=== PATIENT | male | born 1955 | race Caucasian/White ===

== ENCOUNTER 2022-09-02 19:10 | Inpatient (IN) | payer MEDICARE, SELFPAY ==
--- NOTE | ~2022-09-02 | XR_ITS ---
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 RESULT: Lines, tubes, and devices: None. Lungs and pleura: Severe emphysematous change, with mild diffuse reticulonodular opacities. No pneum othorax, focal consolidation, or pleural effusion. Cardiomediastinal silhouette: Dilated central pulmonary arteries as can be seen with pulmonary arter ial hypertension. Moderate aortic arch calcification. Other: No acute osseous or upper abdominal finding. IMPRESSION: No acute cardiopulmonary process. Reviewed, dictated and finalized at location K. ER CONTROL OPERATOR
--- NOTE | ~2022-09-02 | XR_ITS ---
Portable chest x-ray Comparison: 09/02/2022 Clinical History: Shortness of breath Findings: There is probable COPD and chronic interstitial disease. No definite consolidation or pleu ral effusion. Cardiomediastinal silhouette is stable. Bones and soft tissues are unremarkable. Impression: COPD and probable chronic interstitial disease. No definite acute abnormality. Reviewed, dictated and finalized at [facility]. DESIGN ENGINEER Impression: COPD and probable chronic interstitial disease. No definite acute abnormality.
--- NOTE | 2022-09-02 19:18 | ECG_ITS ---
Measurements Intervals [place] Rate: 111 P: 89 OR: 114 QRS: 106 QRSD: 78 T: 107 QT: 312 QTc: 425 Interpretive Statements SINUS TACHYCARDIA POSSIBLE RIGHT ATRIAL ENLARGEMENT BASELINE ARTIFACT- I, II, III, AVR, AVL, AVF, V1-V6 ABNORMAL ECG NO PREVIOUS ECG AVAILABLE FOR COMPARISON Electronically Signed On 09-03-2022 7:13:56 ASSESSMENT CLINICIAN by Cr Robins D.O.
--- NOTE | 2022-09-02 19:19 | PC.NURSE ---
Patient arrived with breathing treatment in progress. Treatment finished shortly after arriving at the intake desk, DAVON Anderson discontinued breathing treatment and placed patient on his 2L O2 via NC per his home concentrator.
[2022-09-02 19:38] VITALS: BP 123/61; PULSE 115; RESP 26; TEMP 36.8; O2SAT 95
[2022-09-02 19:44] VITALS: O2SAT 97
[2022-09-02] MEDS: methylPREDNISolone SOD SUCC 125 MG VIAL IV PUSH (20:37)
--- NOTE | 2022-09-02 20:39 | ED.GENADULT ---
HPI - General Adult General Chief complaint: Shortness of Breath/Dyspnea Stated complaint: SOB x2 wks; recently tx pneumonia Time Seen by Provider: 09/02/22 20:09 History of Present Illness HPI narrative: Patient is a 66-year-old gentleman who presents the emergency department with chief complaint of shortness of breath. Patient reports that he has history of COPD and reports that he uses home oxygen normally approximately 2 L via an oxygen concentrator patient reports that he has been having increasing shortness of breath for the last several days and reports that he has had to turn up his oxygen concentrator up to 3 L. Patient states that he was treated for pneumonia about a week ago and reports that as symptoms have continued to worsen. Related Data Allergies Allergy/AdvReac Type Severity Reaction Status Date / Time procaine [From Novocain] Allergy Other Verified 09/02/22 19:12 Review of Systems Review of Systems: A 10 system review of systems was completed on the patient and is negative except for what is stated in the HPI. Nursing and ancillary documentation was reviewed. Exam Narrative: GENERAL: Well-appearing, well-nourished, and in no acute distress. HEAD: Normocephalic, atraumatic. EYES: PERRLA and EOMI. ENT: Nares clear, no rhinorrhea or epistaxis. Mucous membranes moist. NECK: Supple. CHEST: Clear to auscultation. No respiratory distress. HEART: Regular rate and rhythm. No murmur heard. Normal peripheral pulses. ABDOMEN: Soft, nontender, nondistended, normal active bowel sounds. EXTREMITIES: Normal range of motion. No edema. SKIN: Warm, dry, no rash. NEURO: No focal deficits. Alert and oriented x3. PSYCH: Normal mood and affect. Course Vital Signs Vital signs: Vital Signs Temperature 36.8 C 09/02/22 19:38 Pulse Rate 115 H 09/02/22 19:38 Respiratory Rate 26 H 09/02/22 19:38 Blood Pressure 123/61 09/02/22 19:38 Pulse Oximetry 95 09/02/22 19:38 Temperature 36.8 C 09/02/22 19:38 Pulse Rate 107 H 09/02/22 22:03 Respiratory Rate 24 H 09/02/22 22:03 Blood Pressure 126/69 09/02/22 22:03 Pulse Oximetry 100 09/02/22 22:03 Oxygen Delivery Nasal Cannula 09/02/22 19:44 Oxygen Flow Rate 4 09/02/22 19:44 Medical Decision Making MDM Narrative Medical decision making narrative: EKG is sinus tachycardia rate of [address] elevation or ST depression this was interpreted by me Chest x-ray reviewed by the radiologist showed no focal infiltrate. Patient normally requires 2 L of nasal cannula currently the patient is requiring between 3 and 4 L of nasal cannula he is starting to feel better at this time. Laboratory studies were reviewed which showed negative troponin lactate of 2.1 BNP was 422 procalcitonin is 0.1 flu was negative RSV and COVID were negative. Given the patient has increased oxygen requirement from his baseline and the patient will be admitted to the hospitalist service. The case was discussed with Dr. Jain and the patient was accepted Vital Signs Vital Signs: Vital Signs Temperature 36.8 C 09/02/22 19:38 Pulse Rate 115 H 09/02/22 19:38 Respiratory Rate 26 H 09/02/22 19:38 Blood Pressure 123/61 09/02/22 19:38 Pulse Oximetry 95 09/02/22 19:38 Temperature 36.8 C 09/02/22 19:38 Pulse Rate 107 H 09/02/22 22:03 Respiratory Rate 24 H 09/02/22 22:03 Blood Pressure 126/69 09/02/22 22:03 Pulse Oximetry 100 09/02/22 22:03 Oxygen Delivery Nasal Cannula 09/02/22 19:44 Oxygen Flow Rate 4 09/02/22 19:44 Lab Data 09/02/22 20:18 09/02/22 20:18 Labs: Lab Results 09/02/22 09/02/22 09/02/22 Range/Units 20:18 20:18 20:37 WBC 8.2 (4.5-10.0) K/mm3 RBC 3.52 L (4.6-6.20) M/mm3 Hgb 12.6 L (14.0-18.0) g/dL Hct 38.0 L (42.0-52.0) % MCV 108.0 H (80-100) fl MCH 35.8 H (26-34) pg MCHC 33.2 (32-36) g/dl RDW 13.5 (11.5-14.5) % Plt Count 160 (150-375) k
[2022-09-02 20:49] LABS: Basophils Percent Auto 0.1 % (0.2-1.2); Hemoglobin 12.6 g/dL (14.0-18.0); Immature Granulocyte Absolute 0.03 K/mm3 (0.00-0.031); Immature Granulocyte Percent A 0.4 % (0-0.5); Lymphocytes Absolute Auto 0.23 K/mm3 (0.9-3.2); Lymphocytes Percent Auto 2.8 % (18.3-44.2); Mean Corpuscular HGB Conc 33.2 g/dl (32-36); Mean Corpuscular Hemoglobin 35.8 pg (26-34); Mean Platelet Volume 12.2 fl (7.4-10.4); Monocytes Absolute Auto 0.4 K/mm3 (0.1-0.6); Monocytes Percent Auto 4.9 % (2.6-8.5); Neutrophils Absolute Auto 7.5 K/mm3 (1.3-6.7); Neutrophils Percent Auto 91.8 % (45.5-73.1); Platelet Count Result 160 k/mm3 (150-375); Red Blood Count 3.52 M/mm3 (4.6-6.20); Red Cell Distribution Width 13.5 % (11.5-14.5); White Blood Count 8.2 K/mm3 (4.5-10.0)
[2022-09-02 21:02] LABS: Lactic Acid Reflex 2.1 mmol/L (0.7-2.0)
[2022-09-02 21:03] LABS: Alanine Aminotransferase 19 U/L (6-50); Albumin Level 3.8 g/dL (3.5-5.1); Alkaline Phosphatase 75 U/L (38-126); Anion Gap 3 mmol/L (8-16); Aspartate Amino Transferase 31 U/L (17-59); Bilirubin,Total 0.8 mg/dL (0.2-1.3); Blood Urea Nitrogen 11 mg/dL (9-20); Calcium 8.3 mg/dL (8.4-10.2); Carbon Dioxide 30 mmol/L (22-30); Chloride 94 mmol/L (98-107); Estimated CRCL calculation 109 ml/min; Estimated Glomerular Filt Rate > 60; Glucose 97 mg/dL (65-110); Sodium 127 mmol/L (137-145)
[2022-09-02 21:04] VITALS: BP 113/64; PULSE 103; RESP 27; O2SAT 99
[2022-09-02] MEDS: ALBUTEROL SULFATE NEB 2.5 MG/3 ML INH 5 MG INHALATION (21:05)
[2022-09-02] MEDS: IPRATROPIUM BR 0.02% INH SOLN 0.5 MG/2.5 ML VIAL INHALATION (21:06)
[2022-09-02 21:14] LABS: NT Pro B Type Natriuretic Pept 422 pg/mL (19.9-100); Troponin I < 0.012 ng/mL (0.000-0.034)
[2022-09-02 21:20] LABS: Procalcitonin 0.1 ng/mL
[2022-09-02 21:24] LABS: Influenza A QL RT-PCR Negative (Negative); Influenza B QL RT-PCR Negative (Negative); RSV RNA, RT-PCR Negative (Negative); SARS-CoV-2 RNA PCR Negative
[2022-09-02 22:03] VITALS: BP 126/69; PULSE 107; RESP 24; O2SAT 100
--- NOTE | 2022-09-02 22:45 | PM.IMHP ---
H&P: HPI History of Present Illness Date/Time: 09/02/22 22:45 Chief Complaint: Shortness of breath. Narrative: This is a pleasant 66-year-old male smoker with COPD, chronic respiratory failure on 2 L nasal cannula vascular disease status post bilateral lower extremity stents who presented to the emergency department for evaluation of shortness of breath. The following history is obtained from the patient. He has chronic shortness of breath at baseline, admitting that he gets winded when walking from room to room at home. He avoids stairs and tends to avoid shopping and the like. He has a chronic cough which is occasionally productive of clear phlegm though the last several days it has been increasingly productive of light yellow phlegm. The last several days he has become increasingly dysmetric on lesser and lesser exertion and today it got to the point where he could hardly even catch his breath. He has been using his nebulizers more frequently and unfortunately they did not provide him much benefit today. He turned his oxygen concentrator up to 3 L and that did not help and he came in today for evaluation. He has not had a fever to his knowledge but he does endorse chills. He denies headache, sinus congestion, and sore throat. He has not had chest or pleuritic pain, palpitations, orthopnea, paroxysmal nocturnal dyspnea, or lower extremity edema. No nausea, vomiting, or diarrhea. He denies syncope and near-syncope. He denies calf pain and tenderness however endorses bilateral leg pain with minimal exertion for quite some time and has an upcoming appointment with his vascular surgeon for evaluation as he has a history of stents. On arrival to ED he was tachycardic and tachypneic with an SpO2 of 95% on 3 L. He was afebrile. Labs were significant for a WBC of 8.2, hemoglobin 12.6, hematocrit 38, MCV 108, sodium 127, lactic acid 2.1, proBNP 422, troponin less than 0.012, procalcitonin 0.1. He was negative for influenza, RSV, and COVID. Chest x-ray showed no acute cardiopulmonary disease. He was given Solu-Medrol 125 mg IV push x1 and a DuoNeb with some improvement however he continues to have significant wheezing and he is being admitted in this setting for further treatment. Review of Systems Review of Systems: Twelve systems were reviewed and are negative except for as per HPI. [facility] Past Medical History Medical History (Updated 09/02/22 @ 23:53 by Katalina Bernstein PA-C) Chronic obstructive pulmonary disease Chronic respiratory failure with hypoxia, on home oxygen therapy Peripheral vascular disease Tobacco dependence Surgical History Surgical History (Updated 09/02/22 @ 23:49 by Katalina Bernstein PA-C) History of intravascular stent placement Bilateral lower extremities. History of sinus surgery Family History Family History Other Heart disease Hypertension Social History Social History (Updated 09/02/22 @ 23:50 by Katalina Bernstein PA-C) Social History: Surrogate medical decision maker: Sherron Lr, significant other. Code status: Full code. Smoking packs per day: 1 Smoking cigarettes per day: 20.0 Years smoked: 61 Smoking pack-years: 61.00 Smoking status: Current every day smoker Tobacco type: cigarettes Additional smoking assessment comments: Trying to quit, smoking about half a pack a day now. Alcohol intake: current Drinks per week: 8 Alcohol use details: Two beers each night. Substance use: never Substance use type: does not use Lack of Transportation: No Lack of Food: Never True Current Housing: I Have Housing Concerned About Future Housing: No Difficulty Paying Gas/Electric Bills: No Difficulty Paying for Meds: No Currently Unemployed: No Education: Grade School Difficulty w/ Childcare or Family Care: No Additional living arrangements comments: Lives in [place] with 9 other people. Additional occup
[2022-09-02 22:55] VITALS: BP 105/59; PULSE 99; RESP 22; O2SAT 95
--- NOTE | 2022-09-02 23:40 | ADMGEN ---
This patient, Wagner Cronin, was admitted to Medical Room 261-01. Patient/family oriented to hospital policies and general routines including ID bracelet, bed and alarms, visiting hours, pain management, procedures, bathroom and other care routines, personal items, smoking policy, room service/diet, and visiting hours. Information on how to activate the Rapid Response Team has been discussed. Patient/Family are encouraged to report perceived risks to care and to ask questions if they do not understand what they are told or what they should do.
[2022-09-02 23:46] LABS: Reflex Lactic Acid Yes or No Add Lactic
[2022-09-02 23:52] VITALS: BP 118/56; PULSE 98; RESP 20; TEMP 36.6; O2SAT 92; BMI 13.2
[2022-09-02 23:54] LABS: Troponin I < 0.012 ng/mL (0.000-0.034)
[2022-09-03] VITALS (12 sets, daily range): BP systolic 112–131; BP diastolic 57–68; PULSE 71–109; RESP 16–20; TEMP 35.8–36.4; O2SAT 91–97
[2022-09-03] MEDS: ATORVASTATIN 40 MG TABLET PO ×2 (00:26→20:27)
[2022-09-03] MEDS: GABAPENTIN 100 MG CAPSULE 200 MG PO ×2 (00:26→20:27)
[2022-09-03] MEDS: ACETAMINOPHEN 325 MG TABLET 650 MG PO ×2 (00:27→20:29)
[2022-09-03] MEDS: guaiFENesin 12 HR 600 MG TABCR PO ×3 (00:27→20:27)
[2022-09-03 02:52] LABS: Hematocrit 37.7 % (42.0-52.0); Hemoglobin 12.4 g/dL (14.0-18.0); Mean Corpuscular HGB Conc 32.9 g/dl (32-36); Mean Corpuscular Hemoglobin 35.8 pg (26-34); Mean Platelet Volume 11.5 fl (7.4-10.4); Platelet Count Result 161 k/mm3 (150-375); Red Blood Count 3.46 M/mm3 (4.6-6.20); Red Cell Distribution Width 13.5 % (11.5-14.5)
[2022-09-03 03:10] LABS: Anion Gap 5 mmol/L (8-16); Blood Urea Nitrogen 14 mg/dL (9-20); Calcium 8.1 mg/dL (8.4-10.2); Carbon Dioxide 31 mmol/L (22-30); Chloride 91 mmol/L (98-107); Estimated CRCL calculation 77 ml/min; Estimated Glomerular Filt Rate > 60; Glucose 346 mg/dL (65-110); Lactic Acid 1.9 mmol/L (0.7-2.0); Magnesium 2.2 mg/dL (1.6-2.3); Potassium 3.8 mmol/L (3.4-5.0); Sodium 127 mmol/L (137-145)
[2022-09-03 03:28] LABS: Troponin I < 0.012 ng/mL (0.000-0.034)
[2022-09-03 03:56] LABS: Iron 18 ug/dL (49-181)
[2022-09-03 04:06] LABS: Percent Iron Saturation 8 % (20-50)
[2022-09-03 04:17] LABS: Folic Acid 6.1 ng/mL (2.76->20)
[2022-09-03 04:21] LABS: Creatinine Urine 88.3 mg/dL
[2022-09-03 04:22] LABS: Sodium Urine Random 16 meq/L
[2022-09-03 04:28] LABS: Thyroid Stimulating Hormone Reflex 0.353 uIU/mL (0.465-4.68)
[2022-09-03 05:29] LABS: Free T4 Free Thyroxine Reflex 1.36 ng/dL (0.78-2.19)
[2022-09-03] MEDS: methylPREDNISolone SOD SUCC 40 MG VIAL IV PUSH ×3 (05:56→21:59)
[2022-09-03 06:20] LABS: Total Triiodothyronine (T3) 0.76 NG/ML (0.97-1.69)
--- NOTE | 2022-09-03 07:32 | P.PNIM_ITS ---
Progress Note: A&P Assessment and Plan (1) Acute exacerbation of chronic obstructive pulmonary disease: Code(s): J44.1 - Chronic obstructive pulmonary disease with (acute) exacerbation Status: Acute Assessment and Plan: Patient short of breath at baseline but having worsening of symptoms. WBC of 8.2, hemoglobin 12.6, hematocrit 38, MCV 108, sodium 127, lactic acid 2.1, proBNP 422, troponin less than 0.012, procalcitonin 0.1. He was negative for influenza, RSV, and COVID. * Pt chronically on 2L of O2 at home. Now on 4 L. * Ween oxygen to maintain O2 >90% * CXR no acute cardiopulmonary process but severe emphysematous changes * Significant wheezing on admission * Elevated lactic acid, will trend * Vital signs stable. * Blood cultures pending * Worsening productive cough, Azithromycin started 09/02/22 for total of 5 days * Dub nebs scheduled * Solu-medrol 40 mg q8hr * Mucinex q12hr * Discussed smoking cessation (2) Peripheral vascular disease: Code(s): I73.9 - Peripheral vascular disease, unspecified Status: Acute Assessment and Plan: Pt has hx of b/l stents * has chronic leg pain * seeing vascular surgeon soon * continue atorvastatin * Aspirin 81 mg started (3) Tobacco dependence: Code(s): F17.200 - Nicotine dependence, unspecified, uncomplicated Status: Acute Assessment and Plan: Nicotine patch as needed (4) Macrocytic anemia: Code(s): D53.9 - Nutritional anemia, unspecified Status: Acute Assessment and Plan: Patient states he drinks 2 beers a night. * TSH mildly low likely due to steroid use * B12 normal * folate normal * Iron studies revealed low iron, low TIBC, low % saturation, high ferritin * Iron supplement added (5) Hyponatremia: Code(s): E87.1 - Hypo-osmolality and hyponatremia Status: Acute Assessment and Plan: Patient states he drinks 2 beers a night. * Urine and serum osmolality * Urine sodium and creatinine * FENA 0.1% (6) Lactic acidosis: Code(s): E87.20 - Acidosis, unspecified Status: Acute Assessment and Plan: see above Plan Medical decision making narrative History obtained from: Patient. History from independent sources: None. External chart review: ED New problems addressed: Acute exacerbation COPD, hyponatremia, macrocytic anemia, smoking cessation Chronic illnesses addressed: COPD. Independent interpretation of studies: Labs and imaging/reports reviewed. Discussion of management with other providers: None. Comorbidities complicating care: Continuation of smoking increasing risk for future COPD exacerbations and treatments Diagnostic tests considered but not ordered: None. Shared decision making: None Time Spent With Patient Time: Discussed smoking cessation for 15 minutes Entire encounter greater than 50 minutes Subjective Date/time seen: 09/03/22 07:32 Interval history: Patient continuing to have shortness of breath although he is on his home O2 settings. Patient is very thin and unable to gain weight and states that he is short of breath at baseline. Patient does have chronic wet cough without produ ction. Patient denies fevers, headache, dizziness, congestion, sore throat, chest pain, nausea vomiting. Review of Systems Review of Systems: All systems reviewed & are unremarkable except as noted in HPI and below Exam
--- NOTE | 2022-09-03 07:32 | PM.IMPN ---
Progress Note: A&P Assessment and Plan (1) Acute exacerbation of chronic obstructive pulmonary disease: Code(s): J44.1 - Chronic obstructive pulmonary disease with (acute) exacerbation Status: Acute Assessment and Plan: Patient short of breath at baseline but having worsening of symptoms. WBC of 8.2, hemoglobin 12.6, hematocrit 38, MCV 108, sodium 127, lactic acid 2.1, proBNP 422, troponin less than 0.012, procalcitonin 0.1. He was negative for influenza, RSV, and COVID. Pt chronically on 2L of O2 at home. Now on 4 L. Ween oxygen to maintain O2 >90% CXR no acute cardiopulmonary process but severe emphysematous changes Significant wheezing on admission Elevated lactic acid, will trend Vital signs stable. Blood cultures pending Worsening productive cough, Azithromycin started 09/02/22 for total of 5 days Dub nebs scheduled Solu-medrol 40 mg q8hr Mucinex q12hr Discussed smoking cessation (2) Peripheral vascular disease: Code(s): I73.9 - Peripheral vascular disease, unspecified Status: Acute Assessment and Plan: Pt has hx of b/l stents has chronic leg pain seeing vascular surgeon soon continue atorvastatin Aspirin 81 mg started (3) Tobacco dependence: Code(s): F17.200 - Nicotine dependence, unspecified, uncomplicated Status: Acute Assessment and Plan: Nicotine patch as needed (4) Macrocytic anemia: Code(s): D53.9 - Nutritional anemia, unspecified Status: Acute Assessment and Plan: Patient states he drinks 2 beers a night. TSH mildly low likely due to steroid use B12 normal folate normal Iron studies revealed low iron, low TIBC, low % saturation, high ferritin Iron supplement added (5) Hyponatremia: Code(s): E87.1 - Hypo-osmolality and hyponatremia Status: Acute Assessment and Plan: Patient states he drinks 2 beers a night. Urine and serum osmolality Urine sodium and creatinine FENA 0.1% (6) Lactic acidosis: Code(s): E87.20 - Acidosis, unspecified Status: Acute Assessment and Plan: see above Plan Medical decision making narrative History obtained from: Patient. History from independent sources: None. External chart review: ED New problems addressed: Acute exacerbation COPD, hyponatremia, macrocytic anemia, smoking cessation Chronic illnesses addressed: COPD. Independent interpretation of studies: Labs and imaging/reports reviewed. Discussion of management with other providers: None. Comorbidities complicating care: Continuation of smoking increasing risk for future COPD exacerbations and treatments Diagnostic tests considered but not ordered: None. Shared decision making: None Time Spent With Patient Time: Discussed smoking cessation for 15 minutes Entire encounter greater than 50 minutes Subjective Date/time seen: 09/03/22 07:32 Interval history: Patient continuing to have shortness of breath although he is on his home O2 settings. Patient is very thin and unable to gain weight and states that he is short of breath at baseline. Patient does have chronic wet cough without production. Patient denies fevers, headache, dizziness, congestion, sore throat, chest pain, nausea vomiting. Review of Systems Review of Systems: All systems reviewed & are unremarkable except as noted in HPI and below Exam Narrative: GENERAL: Comfortable, no acute distress, cachectic HENMT: moist mucous membranes EYES: EOM intact b/l NECK: no lymphadenopathy RESPIRATORY: Diffuse wheezing CARDIO: Distant heart sounds GI: soft, nontender, bowel sounds present SKIN: no rashes EXTREMITIES: no edema, redness or tenderness Objective Data Vital Signs Vital Signs: Vital Signs - 24 hr 09/02/22 19:38 09/02/22 19:44 09/02/22 21:04 Temperature 98.2 F Pulse Rate 115 H 103 H Respiratory Rate 26 H 27 H Blood Pressure 123/61 113/64 P
[2022-09-03] MEDS: ASPIRIN 81 MG ENTERIC TABLET PO (08:43)
[2022-09-03] MEDS: FERROUS SULFATE 324 MG TABLET PO (08:43)
[2022-09-03] MEDS: ENOXAPARIN 40 MG/0.4 ML SYRINGE SUB-Q (08:44)
[2022-09-03] MEDS: IPRATROPIUM BR 0.02% INH SOLN 0.5 MG/2.5 ML VIAL INHALATION ×3 (09:16→20:02)
[2022-09-03] MEDS: ALBUTEROL SULFATE NEB 2.5 MG/3 ML INH 5 MG INHALATION ×3 (09:16→20:01)
[2022-09-03] MEDS: FLUTICASONE/SALMETEROL 115-21 MCG INHALER 1 PUFF 2 PUFF INHALATION ×2 (09:16→20:05)
[2022-09-04] VITALS (14 sets, daily range): BP systolic 106–130; BP diastolic 58–70; PULSE 76–100; RESP 16–22; TEMP 36.1–36.6; O2SAT 92–98
[2022-09-04] MEDS: ALBUTEROL SULFATE NEB 2.5 MG/3 ML INH 5 MG INHALATION ×4 (02:20→21:02)
[2022-09-04] MEDS: IPRATROPIUM BR 0.02% INH SOLN 0.5 MG/2.5 ML VIAL INHALATION ×4 (02:20→21:02)
[2022-09-04 05:18] LABS: Hematocrit 35.6 % (42.0-52.0); Hemoglobin 11.7 g/dL (14.0-18.0); Mean Corpuscular HGB Conc 32.9 g/dl (32-36); Mean Corpuscular Hemoglobin 36.2 pg (26-34); Mean Corpuscular Volume 110.2 fl (80-100); Platelet Count Result 175 k/mm3 (150-375); Red Blood Count 3.23 M/mm3 (4.6-6.20); Red Cell Distribution Width 13.4 % (11.5-14.5); White Blood Count 12.1 K/mm3 (4.5-10.0)
[2022-09-04] MEDS: methylPREDNISolone SOD SUCC 40 MG VIAL IV PUSH ×3 (05:20→21:04)
[2022-09-04 05:33] LABS: Alanine Aminotransferase 18 U/L (6-50); Albumin Level 3.2 g/dL (3.5-5.1); Alkaline Phosphatase 62 U/L (38-126); Anion Gap 2 mmol/L (8-16); Aspartate Amino Transferase 26 U/L (17-59); Bilirubin,Total 0.4 mg/dL (0.2-1.3); Blood Urea Nitrogen 16 mg/dL (9-20); Calcium 8.5 mg/dL (8.4-10.2); Carbon Dioxide 36 mmol/L (22-30); Chloride 93 mmol/L (98-107); Estimated CRCL calculation 76 ml/min; Estimated Glomerular Filt Rate > 60; Glucose 123 mg/dL (65-110); Potassium 3.5 mmol/L (3.4-5.0); Sodium 131 mmol/L (137-145)
[2022-09-04] MEDS: LORazepam (*CRX) 1 MG TABLET PO ×2 (05:53→21:00)
[2022-09-04] MEDS: guaiFENesin 12 HR 600 MG TABCR PO ×2 (08:13→21:00)
[2022-09-04] MEDS: FERROUS SULFATE 324 MG TABLET PO (08:13)
[2022-09-04] MEDS: ENOXAPARIN 40 MG/0.4 ML SYRINGE SUB-Q (08:13)
[2022-09-04] MEDS: ASPIRIN 81 MG ENTERIC TABLET PO (08:13)
[2022-09-04] MEDS: FLUTICASONE/SALMETEROL 115-21 MCG INHALER 1 PUFF 2 PUFF INHALATION ×2 (08:29→21:02)
--- NOTE | 2022-09-04 14:21 | P.PNIM_ITS ---
Progress Note: A&P Assessment and Plan (1) Acute exacerbation of chronic obstructive pulmonary disease: Code(s): J44.1 - Chronic obstructive pulmonary disease with (acute) exacerbation Status: Acute Assessment and Plan: Patient short of breath at baseline but having worsening of symptoms. WBC of 8.2, hemoglobin 12.6, hematocrit 38, MCV 108, sodium 127, lactic acid 2.1, proBNP 422, troponin less than 0.012, procalcitonin 0.1. He was negative for influenza, RSV, and COVID. * Pt chronically on 2L of O2 at home. Now on 4 L. * Ween oxygen to maintain O2 >90% * CXR no acute cardiopulmonary process but severe emphysematous changes * Significant wheezing on admission * Elevated lactic acid, will trend * Vital signs stable. * Blood cultures pending * Worsening productive cough, Azithromycin started 09/02/22 for total of 5 days * Dub nebs scheduled * Solu-medrol 40 mg q8hr * Mucinex q12hr * Discussed smoking cessation 09/04/22 * Patient continued to have shortness of breath and diffuse wheezing. * Will order the physiotherapy, incentive spirometry, and Pulmozyme (2) Peripheral vascular disease: Code(s): I73.9 - Peripheral vascular disease, unspecified Status: Acute Assessment and Plan: Pt has hx of b/l stents * has chronic leg pain * seeing vascular surgeon soon * continue atorvastatin * Aspirin 81 mg started (3) Tobacco dependence: Code(s): F17.200 - Nicotine dependence, unspecified, uncomplicated Status: Acute Assessment and Plan: Nicotine patch as needed (4) Macrocytic anemia: Code(s): D53.9 - Nutritional anemia, unspecified Status: Acute Assessment and Plan: Patient states he drinks 2 beers a night. * TSH mildly low likely due to steroid use * B12 normal * folate normal * Iron studies revealed low iron, low TIBC, low % saturation, high ferritin * Iron supplement added (5) Hyponatremia: Code(s): E87.1 - Hypo-osmolality and hyponatremia Status: Acute Assessment and Plan: Patient states he drinks 2 beers a night. * Urine and serum osmolality * Urine sodium and creatinine * FENA 0.1% (6) Lactic acidosis: Code(s): E87.20 - Acidosis, unspecified Status: Acute Assessment and Plan: see above Plan Medical decision making narrative History obtained from: Patient. History from independent sources: None. External chart review: None New problems addressed: Acute exacerbation COPD. Chronic illnesses addressed: COPD. Independent interpretation of studies: Labs and imaging/reports reviewed. Discussion of management with other providers: None. Comorbidities complicating care: Continuation of smoking increasing risk for future COPD exacerbations and treatments. Diagnostic tests considered but not ordered: None. Shared decision making: None Subjective Date/time seen: 09/04/22 14:21 Interval history: Patient mildly improving. Still having diffuse wheezing. No new complaints. Denies fever, headache, dizziness, chest pain, nausea, vomiting. Review of Systems Review of Systems: All systems reviewed & are unremarkable except as noted in HPI and below Exam Narrative: GENERAL: Comfortable, no acute distress, cachectic HENMT: moist mucous membranes EYES: EOM intact b/l NECK: no lymphadenopathy RESPIRATORY: Diffuse wheezing CARDIO: Distant heart sounds
--- NOTE | 2022-09-04 14:21 | PM.IMPN ---
Progress Note: A&P Assessment and Plan (1) Acute exacerbation of chronic obstructive pulmonary disease: Code(s): J44.1 - Chronic obstructive pulmonary disease with (acute) exacerbation Status: Acute Assessment and Plan: Patient short of breath at baseline but having worsening of symptoms. WBC of 8.2, hemoglobin 12.6, hematocrit 38, MCV 108, sodium 127, lactic acid 2.1, proBNP 422, troponin less than 0.012, procalcitonin 0.1. He was negative for influenza, RSV, and COVID. Pt chronically on 2L of O2 at home. Now on 4 L. Ween oxygen to maintain O2 >90% CXR no acute cardiopulmonary process but severe emphysematous changes Significant wheezing on admission Elevated lactic acid, will trend Vital signs stable. Blood cultures pending Worsening productive cough, Azithromycin started 09/02/22 for total of 5 days Dub nebs scheduled Solu-medrol 40 mg q8hr Mucinex q12hr Discussed smoking cessation 09/04/22 Patient continued to have shortness of breath and diffuse wheezing. Will order the physiotherapy, incentive spirometry, and Pulmozyme (2) Peripheral vascular disease: Code(s): I73.9 - Peripheral vascular disease, unspecified Status: Acute Assessment and Plan: Pt has hx of b/l stents has chronic leg pain seeing vascular surgeon soon continue atorvastatin Aspirin 81 mg started (3) Tobacco dependence: Code(s): F17.200 - Nicotine dependence, unspecified, uncomplicated Status: Acute Assessment and Plan: Nicotine patch as needed (4) Macrocytic anemia: Code(s): D53.9 - Nutritional anemia, unspecified Status: Acute Assessment and Plan: Patient states he drinks 2 beers a night. TSH mildly low likely due to steroid use B12 normal folate normal Iron studies revealed low iron, low TIBC, low % saturation, high ferritin Iron supplement added (5) Hyponatremia: Code(s): E87.1 - Hypo-osmolality and hyponatremia Status: Acute Assessment and Plan: Patient states he drinks 2 beers a night. Urine and serum osmolality Urine sodium and creatinine FENA 0.1% (6) Lactic acidosis: Code(s): E87.20 - Acidosis, unspecified Status: Acute Assessment and Plan: see above Plan Medical decision making narrative History obtained from: Patient. History from independent sources: None. External chart review: None New problems addressed: Acute exacerbation COPD. Chronic illnesses addressed: COPD. Independent interpretation of studies: Labs and imaging/reports reviewed. Discussion of management with other providers: None. Comorbidities complicating care: Continuation of smoking increasing risk for future COPD exacerbations and treatments. Diagnostic tests considered but not ordered: None. Shared decision making: None Subjective Date/time seen: 09/04/22 14:21 Interval history: Patient mildly improving. Still having diffuse wheezing. No new complaints. Denies fever, headache, dizziness, chest pain, nausea, vomiting. Review of Systems Review of Systems: All systems reviewed & are unremarkable except as noted in HPI and below Exam Narrative: GENERAL: Comfortable, no acute distress, cachectic HENMT: moist mucous membranes EYES: EOM intact b/l NECK: no lymphadenopathy RESPIRATORY: Diffuse wheezing CARDIO: Distant heart sounds GI: soft, nontender, bowel sounds present SKIN: no rashes EXTREMITIES: no edema, redness or tenderness Objective Data Vital Signs Vital Signs: Vital Signs - 24 hr 09/03/22 15:24 09/03/22 20:03 09/03/22 20:04 Temperature 96.8 F L Pulse Rate 95 103 H Respiratory Rate 18 18 Blood Pressure 131/66 Pulse Oximetry 91 93 Oxygen Delivery Nasal Cannula Oxygen Flow Rate 2 09/03/22 20:49 09/04/22 02:20 09/04/22 02:31 Temperature 97.6 F Pulse Rate 100 95 100 Respiratory Rate 16 22 H 20 Blood Pressure 126/68
[2022-09-04] MEDS: GABAPENTIN 100 MG CAPSULE 200 MG PO (21:00)
[2022-09-04] MEDS: ATORVASTATIN 40 MG TABLET PO (21:00)
[2022-09-04] MEDS: ACETAMINOPHEN 325 MG TABLET 650 MG PO (21:00)
[2022-09-04] MEDS: DORNASE ALFA INH SOLN 1 MG/ML 2.5 ML AMP 2.5 MG INHALATION (21:02)
[2022-09-05] VITALS (15 sets, daily range): BP systolic 109–133; BP diastolic 45–60; PULSE 82–101; RESP 16–24; TEMP 36–36.4; O2SAT 91–99; BMI 14.2
[2022-09-05] MEDS: IPRATROPIUM BR 0.02% INH SOLN 0.5 MG/2.5 ML VIAL INHALATION ×4 (02:55→21:02)
[2022-09-05] MEDS: ALBUTEROL SULFATE NEB 2.5 MG/3 ML INH 5 MG INHALATION ×4 (02:56→21:02)
[2022-09-05] MEDS: methylPREDNISolone SOD SUCC 40 MG VIAL IV PUSH ×3 (05:34→22:06)
[2022-09-05 05:59] LABS: Hematocrit 38.4 % (42.0-52.0); Hemoglobin 12.5 g/dL (14.0-18.0); Mean Corpuscular HGB Conc 32.6 g/dl (32-36); Mean Corpuscular Hemoglobin 35.2 pg (26-34); Mean Corpuscular Volume 108.2 fl (80-100); Mean Platelet Volume 11.8 fl (7.4-10.4); Platelet Count Result 187 k/mm3 (150-375); Red Blood Count 3.55 M/mm3 (4.6-6.20); Red Cell Distribution Width 13.2 % (11.5-14.5); White Blood Count 18.4 K/mm3 (4.5-10.0)
[2022-09-05 06:11] LABS: Alanine Aminotransferase 20 U/L (6-50); Albumin Level 3.2 g/dL (3.5-5.1); Alkaline Phosphatase 61 U/L (38-126); Aspartate Amino Transferase 28 U/L (17-59); Bilirubin,Total 0.4 mg/dL (0.2-1.3); Blood Urea Nitrogen 12 mg/dL (9-20); Calcium 9.1 mg/dL (8.4-10.2); Carbon Dioxide > 40 mmol/L (22-30); Chloride 89 mmol/L (98-107); Estimated CRCL calculation 76 ml/min; Estimated Glomerular Filt Rate > 60; Glucose 110 mg/dL (65-110); Potassium 4.1 mmol/L (3.4-5.0); Sodium 129 mmol/L (137-145)
[2022-09-05] MEDS: FERROUS SULFATE 324 MG TABLET PO (08:04)
[2022-09-05] MEDS: ENOXAPARIN 40 MG/0.4 ML SYRINGE SUB-Q (08:04)
[2022-09-05] MEDS: ASPIRIN 81 MG ENTERIC TABLET PO (08:04)
[2022-09-05] MEDS: guaiFENesin 12 HR 600 MG TABCR PO ×2 (08:05→20:38)
[2022-09-05] MEDS: DORNASE ALFA INH SOLN 1 MG/ML 2.5 ML AMP 2.5 MG INHALATION ×2 (08:16→21:03)
[2022-09-05] MEDS: FLUTICASONE/SALMETEROL 115-21 MCG INHALER 1 PUFF 2 PUFF INHALATION ×2 (08:19→21:03)
[2022-09-05 10:18] LABS: Alveolar/Arterial O2 Gradient 72.8 mmHg; Base Excess ABG 7.7 mEq/l (+/-2.0); Fractional Inspired Oxygen 28 %; HCO3 ABG 34.9 mEq/l (22.0-26.0); Oxygen Content ABG 17.8 %vol (16.0-22.0); Total Hemoglobin 14.5 g/dL (12.0-18.0); pH ABG 7.383 (7.350-7.450)
[2022-09-05 10:22] LABS: Oxygen Saturation ABG 87.9 % (95.0-100.0)
[2022-09-05 10:23] LABS: Modified Allen's Test Pass; Oxyhemoglobin 87.3 % THb (90.0-100.0); Site Drawn LEFT RADIAL
--- NOTE | 2022-09-05 11:32 | P.PNIM_ITS ---
Progress Note: A&P Assessment and Plan (1) Acute exacerbation of chronic obstructive pulmonary disease: Code(s): J44.1 - Chronic obstructive pulmonary disease with (acute) exacerbation Status: Acute Assessment and Plan: Patient short of breath at baseline but having worsening of symptoms. WBC of 8.2, hemoglobin 12.6, hematocrit 38, MCV 108, sodium 127, lactic acid 2.1, proBNP 422, troponin less than 0.012, procalcitonin 0.1. He was negative for influenza, RSV, and COVID. * Pt chronically on 2L of O2 at home. Now on 4 L. * Ween oxygen to maintain O2 >90% * CXR no acute cardiopulmonary process but severe emphysematous changes * Significant wheezing on admission * Elevated lactic acid, will trend * Vital signs stable. * Blood cultures pending * Worsening productive cough, Azithromycin started 09/02/22 for total of 5 days * Dub nebs scheduled * Solu-medrol 40 mg q8hr * Mucinex q12hr * Discussed smoking cessation 09/04/22 * Patient continued to have shortness of breath and diffuse wheezing. * Will order the physiotherapy, incentive spirometry,? and Pulmozyme 09/05/22 * Patient states that shortness of breath is worsening today. * Pulmonary consulted * Hospice was discussed and patient and family considering a meeting * ABG revealed compensated respiratory acidosis. Discussed with ordnance artificer. * Discussed with patient's family and patient the risk of not coming off of ventilator due to degree of COPD. Answered patient's and his family's questions to the best of my ability. Patient and family wish to change code status to DNR. (2) Peripheral vascular disease: Code(s): I73.9 - Peripheral vascular disease, unspecified Status: Acute Assessment and Plan: Pt has hx of b/l stents * has chronic leg pain * seeing vascular surgeon soon * continue atorvastatin * Aspirin 81 mg started (3) Tobacco dependence: Code(s): F17.200 - Nicotine dependence, unspecified, uncomplicated Status: Acute Assessment and Plan: Nicotine patch as needed (4) Macrocytic anemia: Code(s): D53.9 - Nutritional anemia, unspecified Status: Acute Assessment and Plan: Patient states he drinks 2 beers a night. * TSH mildly low likely due to steroid use * B12 normal * folate normal * Iron studies revealed low iron, low TIBC, low % saturation, high ferritin * Iron supplement added (5) Hyponatremia: Code(s): E87.1 - Hypo-osmolality and hyponatremia Status: Acute Assessment and Plan: Patient states he drinks 2 beers a night. * Urine and serum osmolality * Urine sodium and creatinine * FENA 0.1% (6) Lactic acidosis: Code(s): E87.20 - Acidosis, unspecified Status: Acute Assessment and Plan: see above (7) Malnutrition: Code(s): E46 - Unspecified protein-calorie malnutrition Status: Acute Assessment and Plan: Patient has a BMI of 14.2, severe malnutrition. Patient has tried to put on weight over the past couple months but has not been able to. * Dietary supplements added * Patient does not like Ensure or boost * Dietitian consulted * Low BMI likely due to the severity of emphysema. Plan Time spent with patient greater than 55 minutes Extensive amount of time talking about code status and COPD course moving forward. Subjective Date/time seen: 09/05/22 11:32 Interval history: Patient states that his shortness of breath is worse
--- NOTE | 2022-09-05 11:32 | PM.IMPN ---
Progress Note: A&P Assessment and Plan (1) Acute exacerbation of chronic obstructive pulmonary disease: Code(s): J44.1 - Chronic obstructive pulmonary disease with (acute) exacerbation Status: Acute Assessment and Plan: Patient short of breath at baseline but having worsening of symptoms. WBC of 8.2, hemoglobin 12.6, hematocrit 38, MCV 108, sodium 127, lactic acid 2.1, proBNP 422, troponin less than 0.012, procalcitonin 0.1. He was negative for influenza, RSV, and COVID. Pt chronically on 2L of O2 at home. Now on 4 L. Ween oxygen to maintain O2 >90% CXR no acute cardiopulmonary process but severe emphysematous changes Significant wheezing on admission Elevated lactic acid, will trend Vital signs stable. Blood cultures pending Worsening productive cough, Azithromycin started 09/02/22 for total of 5 days Dub nebs scheduled Solu-medrol 40 mg q8hr Mucinex q12hr Discussed smoking cessation 09/04/22 Patient continued to have shortness of breath and diffuse wheezing. Will order the physiotherapy, incentive spirometry,? and Pulmozyme 09/05/22 Patient states that shortness of breath is worsening today. Pulmonary consulted Hospice was discussed and patient and family considering a meeting ABG revealed compensated respiratory acidosis. Discussed with med care manager. Discussed with patient's family and patient the risk of not coming off of ventilator due to degree of COPD. Answered patient's and his family's questions to the best of my ability. Patient and family wish to change code status to DNR. (2) Peripheral vascular disease: Code(s): I73.9 - Peripheral vascular disease, unspecified Status: Acute Assessment and Plan: Pt has hx of b/l stents has chronic leg pain seeing vascular surgeon soon continue atorvastatin Aspirin 81 mg started (3) Tobacco dependence: Code(s): F17.200 - Nicotine dependence, unspecified, uncomplicated Status: Acute Assessment and Plan: Nicotine patch as needed (4) Macrocytic anemia: Code(s): D53.9 - Nutritional anemia, unspecified Status: Acute Assessment and Plan: Patient states he drinks 2 beers a night. TSH mildly low likely due to steroid use B12 normal folate normal Iron studies revealed low iron, low TIBC, low % saturation, high ferritin Iron supplement added (5) Hyponatremia: Code(s): E87.1 - Hypo-osmolality and hyponatremia Status: Acute Assessment and Plan: Patient states he drinks 2 beers a night. Urine and serum osmolality Urine sodium and creatinine FENA 0.1% (6) Lactic acidosis: Code(s): E87.20 - Acidosis, unspecified Status: Acute Assessment and Plan: see above (7) Malnutrition: Code(s): E46 - Unspecified protein-calorie malnutrition Status: Acute Assessment and Plan: Patient has a BMI of 14.2, severe malnutrition. Patient has tried to put on weight over the past couple months but has not been able to. Dietary supplements added Patient does not like Ensure or boost Dietitian consulted Low BMI likely due to the severity of emphysema. Plan Time spent with patient greater than 55 minutes Extensive amount of time talking about code status and COPD course moving forward. Subjective Date/time seen: 09/05/22 11:32 Interval history: Patient states that his shortness of breath is worse today. Long discussion with family over the severity of patient's COPD. Discussed with them how this may not be getting any better. Discussed the risk for endotracheal intubation and CPR. Patient and family verbally stated that they wish to change code status to DNR. Pulmonology consulted. Patient denies fever, headache, dizziness, chest pain, nausea vomiting. Extreme shortness of breath with ambulation. Review of Systems Review of Systems: All systems reviewed & are unremarkable except as noted in
--- NOTE | 2022-09-05 12:19 | P.CDI_ITS ---
CDI Query Clarified Diagnosis Clarified Diagnosis: Nutritional Diagnostic Statement: Severe Protein Calorie Malnutrition of chronic Illness as related to COPD and weight loss as evidence by 18% weight loss in the past 3 months/ subcutaneous fat loss in the orbital region (orbital fat pad) and muscle loss in the catholic region (temporalis muscle) BMI 14.2 Please indicate severity of protein calorie malnutrition if known: * Mild * Moderate * Severe * Other/Specified
[2022-09-05 15:26] LABS: Device NASAL CANNULA
[2022-09-05] MEDS: GABAPENTIN 100 MG CAPSULE 200 MG PO (20:38)
[2022-09-05] MEDS: ATORVASTATIN 40 MG TABLET PO (20:38)
[2022-09-05] MEDS: ACETAMINOPHEN 325 MG TABLET 650 MG PO (20:42)
--- NOTE | 2022-09-05 21:08 | PCRCNOTE ---
pt refused bipap states he dont use at home either
[2022-09-06] VITALS (16 sets, daily range): BP systolic 114–130; BP diastolic 54–75; PULSE 74–101; RESP 16–20; TEMP 35.9–36.5; O2SAT 78–97
[2022-09-06] MEDS: IPRATROPIUM BR 0.02% INH SOLN 0.5 MG/2.5 ML VIAL INHALATION ×4 (02:40→21:40)
[2022-09-06] MEDS: ALBUTEROL SULFATE NEB 2.5 MG/3 ML INH 5 MG INHALATION ×4 (02:40→21:40)
[2022-09-06] MEDS: methylPREDNISolone SOD SUCC 40 MG VIAL IV PUSH ×3 (05:16→21:03)
[2022-09-06 05:38] LABS: Basophils Percent Auto 0.1 % (0.2-1.2); Hematocrit 37.5 % (42.0-52.0); Hemoglobin 12.2 g/dL (14.0-18.0); Immature Granulocyte Absolute 0.08 K/mm3 (0.00-0.031); Immature Granulocyte Percent A 0.6 % (0-0.5); Lymphocytes Absolute Auto 0.44 K/mm3 (0.9-3.2); Lymphocytes Percent Auto 3.3 % (18.3-44.2); Mean Corpuscular HGB Conc 32.5 g/dl (32-36); Mean Corpuscular Hemoglobin 35.7 pg (26-34); Mean Corpuscular Volume 109.6 fl (80-100); Mean Platelet Volume 11.1 fl (7.4-10.4); Monocytes Absolute Auto 0.6 K/mm3 (0.1-0.6); Monocytes Percent Auto 4.6 % (2.6-8.5); Neutrophils Absolute Auto 12.3 K/mm3 (1.3-6.7); Neutrophils Percent Auto 91.4 % (45.5-73.1); Platelet Count Result 183 k/mm3 (150-375); Red Blood Count 3.42 M/mm3 (4.6-6.20); Red Cell Distribution Width 13.2 % (11.5-14.5); White Blood Count 13.4 K/mm3 (4.5-10.0)
[2022-09-06 05:54] LABS: Alanine Aminotransferase 25 U/L (6-50); Albumin Level 3.1 g/dL (3.5-5.1); Alkaline Phosphatase 64 U/L (38-126); Aspartate Amino Transferase 31 U/L (17-59); Bilirubin,Total 0.3 mg/dL (0.2-1.3); Blood Urea Nitrogen 13 mg/dL (9-20); Calcium 8.6 mg/dL (8.4-10.2); Carbon Dioxide > 40 mmol/L (22-30); Chloride 91 mmol/L (98-107); Estimated CRCL calculation 82 ml/min; Estimated Glomerular Filt Rate > 60; Glucose 118 mg/dL (65-110); Potassium 3.9 mmol/L (3.4-5.0); Sodium 131 mmol/L (137-145)
[2022-09-06] MEDS: DORNASE ALFA INH SOLN 1 MG/ML 2.5 ML AMP 2.5 MG INHALATION ×2 (08:38→21:41)
[2022-09-06] MEDS: FLUTICASONE/SALMETEROL 115-21 MCG INHALER 1 PUFF 2 PUFF INHALATION ×2 (08:39→21:41)
[2022-09-06] MEDS: guaiFENesin 12 HR 600 MG TABCR PO ×2 (09:08→21:03)
[2022-09-06] MEDS: ENOXAPARIN 40 MG/0.4 ML SYRINGE SUB-Q (09:08)
[2022-09-06] MEDS: ASPIRIN 81 MG ENTERIC TABLET PO (09:08)
[2022-09-06] MEDS: FERROUS SULFATE 324 MG TABLET PO (09:08)
--- NOTE | 2022-09-06 10:48 | PM.CNPUL ---
Assessment and Plan Assessment and plan (1) Acute exacerbation of chronic obstructive pulmonary disease: Code(s): J44.1 - Chronic obstructive pulmonary disease with (acute) exacerbation Status: Acute Assessment and Plan: this 66-year-old man has evidence of end-stage COPD, frequent severe exacerbations with 3 hospitalization over the last 5 months, chronic hypoxemic hypercapnic respiratory failure on just supplemental oxygen, history of intolerance to noninvasive ventilatory support for chronic hypercapnia home, currently actively smoking, with significant weight loss over the last year and incapacitated dyspnea with any activity. In addition he has increased anxiety. No previous pulmonary function testing is available. agree with current regimen for COPD exacerbation. I had a lengthy discussion with the patient and his regarding end-stage COPD with weight loss, and frequent hospitalizations for COPD exacerbation. With current regimen the patient's respiratory status has improved. Last night he did not tolerate BiPAP support using low pressures. He stated that he does not want to be on any home ventilatory support at this point as he cannot tolerate any type of masks. I would suggest to switch patient to oral steroids starting in a.m. using prednisone 40 mg daily with a tapering over the next couple of weeks. In addition the patient should be on triple inhaler like Trelegy daily along with short-acting bronchodilators. I would add to his outpatient regimen Daliresp daily and also azithromycin 250 mg 3 days a week for frequent severe exacerbations. The patient has severe anxiety and is likely that increased use of a beta agonist further increases anxiety. He may not have any bronchodilator response any beta agonist although pulmonary function testing is not available. I would continue with long-acting anti anxiety medicine like lorazepam 1 mg p.r.n. for increased anxiety. I suggested to the patient and his to supplement nutrition for wt loss with [facility]. also discussed end of life issues like no intubation. The patient will follow with his electrician substation supervisor post discharge from the hospital. (2) Chronic respiratory failure with hypoxia, on home oxygen therapy: Code(s): J96.11 - Chronic respiratory failure with hypoxia; Z99.81 - Dependence on supplemental oxygen Status: Acute (3) Peripheral vascular disease: Code(s): I73.9 - Peripheral vascular disease, unspecified Status: Acute (4) Tobacco dependence: Code(s): F17.200 - Nicotine dependence, unspecified, uncomplicated Status: Acute History of Present Illness History of Present Illness Consult date: 09/06/22 Chief complaint: acute copd exacerbation Narrative: This is a consultation for end-stage COPD. This 66-year-old man has a history of COPD, chronic respiratory failure on on home oxygen peripheral vascular disease status post stents. He presented to the emergency room complaining of shortness of breath. The patient has had at least 3 COPD exacerbations with hospitalizations since April of last year. Patient has had a chronic cough occasionally productive of clear phlegm and incapacitating shortness of breath with any activity, like ambulating in room or even combing his hair. Patient continues to smoke he has been a smoker for many years. When evaluated in the emergency room he had tachycardia tachypnea but no fever. He tested negative for influenza RSV and COVID. Chest x-ray showed lung hyperinflation with flattened diaphragms and no new infiltrates. Patient has been treated for COPD exacerbation with antibiotics IV steroids and nebulized medications. Patient used to see a electrician substation supervisor at another facility. He has lost significant weight over the last year. He has been on supplemental oxygen home but not home ventilatory support for hypercapnic respiratory failure as he cannot tolerate any mask. He has a history of anxie
--- NOTE | 2022-09-06 13:51 | PCRCNOTE ---
HOME O2 EVAL ON HOLD. PATIENT NOT GOING HOME.
[2022-09-06] MEDS: LORATADINE 10 MG TABLET PO (14:04)
--- NOTE | 2022-09-06 14:29 | PM.IMPN ---
Progress Note: A&P Assessment and Plan (1) Acute exacerbation of chronic obstructive pulmonary disease: Code(s): J44.1 - Chronic obstructive pulmonary disease with (acute) exacerbation Status: Acute Assessment and Plan: Patient short of breath at baseline but presented with worsening of symptoms. He was negative for influenza, RSV, and COVID. Currently on IV steroids, azithromycin Pt chronically on 2L of O2 at home. Was on 2L this am, up to 4L with activity. An O2 test is pending prior to discharge. Appreciate pulmonology recs, will plan for change to oral steroids tomorrow with a 2 week taper. Plan for adjustment of inhaler therapy upon discharge. Thrice weekly azithromcyin upon dc. Patient is still below baseline at this time with noted increase in supp. O2 need with any activity. I would think he might benefit from pulmonary rehab but he has no interest. We discussed this at length but he states preference to return to home on discharge. (2) Peripheral vascular disease: Code(s): I73.9 - Peripheral vascular disease, unspecified Status: Acute Assessment and Plan: Hx bilateral lower ext. stents - was not on asa at home d/t being out. - Asa 81mg ordered, will need to be continued at home. (3) Tobacco dependence: Code(s): F17.200 - Nicotine dependence, unspecified, uncomplicated Status: Acute Assessment and Plan: NRT therapy, discussed cessation. (4) Macrocytic anemia: Code(s): D53.9 - Nutritional anemia, unspecified Status: Acute Assessment and Plan: Patient states he drinks 2 beers a night. TSH mildly low likely due to steroid use B12 normal folate normal Iron studies revealed low iron, low TIBC, low % saturation, high ferritin Iron supplement added (5) Hyponatremia: Code(s): E87.1 - Hypo-osmolality and hyponatremia Status: Acute Assessment and Plan: Stable lab values, FENa was 0.1%, he is not acutely dehydrated on examination. (6) Malnutrition: Code(s): E46 - Unspecified protein-calorie malnutrition Status: Acute Assessment and Plan: Patient has a BMI of 14.2, severe malnutrition. Patient has tried to put on weight over the past couple months but has not been able to. Likely 2/2 to COPD and increased energy requirements. Dietary supplements added Will need continued protein/supplementation. (7) Lactic acidosis: Code(s): E87.20 - Acidosis, unspecified Status: Acute Assessment and Plan: Resolved. (8) Rhinitis: Code(s): J31.0 - Chronic rhinitis Status: Acute Assessment and Plan: Clear discharge without acute facial/sinus tenderness. Add claritin daily. Plan Time spent with patient greater than 30 minutes Subjective Date/time seen: 09/06/22 14:29 Interval history: Wagner states he is winded easily with getting up to the restroom. He complains of rhinitis. Review of Systems Constitutional: Constitutional: Reports no additional constitutional complaints Cardiovascular: Cardiovascular: Reports no additional cardiovascular complaints Respiratory: Respiratory: Reports as per HPI Gastrointestinal: Gastrointestinal: Reports no additional gastrointestinal complaints Genitourinary: Genitourinary: Reports no additional male genitourinary complaints Exam Narrative: GENERAL APPEARANCE: Appears to be in no acute distress. HEAD: normocephalic atraumatic ENT: Hearing grossly intact, clear nasal discharge. NECK: Neck supple, trachea midline. CARDIAC: Normal S1/S2. Rhythm is regular. No murmurs, rubs, or gallops. No cyanosis or pallor. Extremities are warm and well perfused. LUNGS: Scattered rhonchi with mild insp wheezes bilat upper lobes.. Respirations even and unlabored. ABDOMEN: BS positive x 4 quadrants. Soft, nondistended, nontender. No guarding or rebound. MSK: No joint tenderness/swelling, fair strength in all extremities. PERIPHE
[2022-09-06 14:52] LABS: Osmolality, Urine 673 mOsm/kg (50-1200)
[2022-09-06] MEDS: ATORVASTATIN 40 MG TABLET PO (21:03)
[2022-09-06] MEDS: GABAPENTIN 100 MG CAPSULE 200 MG PO (21:03)
[2022-09-06] MEDS: ACETAMINOPHEN 325 MG TABLET 650 MG PO (21:03)
[2022-09-07] VITALS (19 sets, daily range): BP systolic 110–150; BP diastolic 70–83; PULSE 72–99; RESP 14–20; TEMP 36.4–36.8; O2SAT 87–99
[2022-09-07] MEDS: ALBUTEROL SULFATE NEB 2.5 MG/3 ML INH 5 MG INHALATION ×4 (02:24→22:14)
[2022-09-07] MEDS: IPRATROPIUM BR 0.02% INH SOLN 0.5 MG/2.5 ML VIAL INHALATION ×4 (02:25→22:14)
[2022-09-07] MEDS: methylPREDNISolone SOD SUCC 40 MG VIAL IV PUSH (05:20)
[2022-09-07 05:29] LABS: Hematocrit 35.9 % (42.0-52.0); Hemoglobin 11.6 g/dL (14.0-18.0); Mean Corpuscular HGB Conc 32.3 g/dl (32-36); Mean Corpuscular Hemoglobin 35.5 pg (26-34); Mean Corpuscular Volume 109.8 fl (80-100); Mean Platelet Volume 11.2 fl (7.4-10.4); Platelet Count Result 191 k/mm3 (150-375); Red Blood Count 3.27 M/mm3 (4.6-6.20); Red Cell Distribution Width 13.2 % (11.5-14.5); White Blood Count 9.3 K/mm3 (4.5-10.0)
[2022-09-07 05:54] LABS: Alanine Aminotransferase 24 U/L (6-50); Albumin Level 2.8 g/dL (3.5-5.1); Alkaline Phosphatase 52 U/L (38-126); Aspartate Amino Transferase 28 U/L (17-59); Bilirubin,Total 0.3 mg/dL (0.2-1.3); Blood Urea Nitrogen 12 mg/dL (9-20); Calcium 8.6 mg/dL (8.4-10.2); Carbon Dioxide > 40 mmol/L (22-30); Chloride 91 mmol/L (98-107); Estimated CRCL calculation 64 ml/min; Estimated Glomerular Filt Rate > 60; Glucose 109 mg/dL (65-110); Potassium 4.2 mmol/L (3.4-5.0); Sodium 134 mmol/L (137-145)
[2022-09-07] MEDS: predniSONE 20 MG TABLET 40 MG PO (08:57)
[2022-09-07] MEDS: FERROUS SULFATE 324 MG TABLET PO (08:57)
[2022-09-07] MEDS: LORATADINE 10 MG TABLET PO (08:57)
[2022-09-07] MEDS: ENOXAPARIN 40 MG/0.4 ML SYRINGE SUB-Q (08:57)
[2022-09-07] MEDS: guaiFENesin 12 HR 600 MG TABCR PO ×2 (08:58→20:29)
[2022-09-07] MEDS: ASPIRIN 81 MG ENTERIC TABLET PO (09:03)
--- NOTE | 2022-09-07 09:21 | PCOTNOTE ---
Attempted to see patient this am, however patient refused. Pt was sleeping upon entering stated he did not sleep well last night.
[2022-09-07] MEDS: FLUTICASONE/SALMETEROL 115-21 MCG INHALER 1 PUFF 2 PUFF INHALATION ×2 (09:59→22:15)
[2022-09-07] MEDS: DORNASE ALFA INH SOLN 1 MG/ML 2.5 ML AMP 2.5 MG INHALATION (10:00)
--- NOTE | 2022-09-07 11:01 | PCPTNOTE ---
Attempted to see patient for PT, however patient refused. Patient reported he did not sleep at all last night and does not want to do therapy at this time.
--- NOTE | 2022-09-07 14:21 | HOMEO2EVAL ---
Evaluation was performed at [facility] Home Oxygen Evaluation RC: Home Oxygen (O2) Evaluation Start: 09/06/22 09:12 Freq: ONCE Status: Active Protocol: RPE Activity Type Activity Date Activity User E-sign Co-sign Detail Recorded Client Recorded Date Recorded By Document 09/07/22 13:45 STEFF [email or web address] 09/07/22 14:21 STEFF Document 09/07/22 13:46 STEFF [email or web address] 09/07/22 14:21 STEFF Document 09/07/22 13:47 STEFF [email or web address] 09/07/22 14:21 STEFF Document 09/07/22 13:50 STEFF [email or web address] 09/07/22 14:21 STEFF Document 09/07/22 13:55 STEFF [email or web address] 09/07/22 14:21 STEFF 09/07/22 09/07/22 09/07/22 13:45 13:46 13:47 Home O2 Evaluation [Oxygen] -Test Phase Resting Exercise Exercise -Oxygen Delivery Nasal Cannula Nasal Cannula Nasal Cannula -Oxygen Flow Rate (L/min) 2 2 3 [Pulse Oximetry] -Pulse Oximetry (90-100 %) 93 87 L 88 L [Comments] -Home Oxygen Evaluation Comments 09/07/22 09/07/22 13:50 13:55 Home O2 Evaluation [Oxygen] -Test Phase Exercise Resting -Oxygen Delivery Nasal Cannula Nasal Cannula -Oxygen Flow Rate (L/min) 4 2 [Pulse Oximetry] -Pulse Oximetry (90-100 %) 90 93 [Comments] -Home Oxygen Evaluation Comments 2LITERS REST AND 4 L EXERTION
--- NOTE | 2022-09-07 14:21 | PCRCNOTE ---
HOME O2 EVAL, 2 L REST AND 4 L EXERTION. PT HAS APRIA. FAMILY WILL BRING IN HIS POC WHEN D/C
--- NOTE | 2022-09-07 14:28 | PM.DS ---
DS: Admitting Diagnosis Discharge Date 09/07/2022 Admitting Diagnosis COPD exacerbation, chronic hypoxic resp. failure on home o2, PVD, Nicotine dependence, nutritional anemia, hyponatremia, lactic acidosis DS: Discharge Diagnosis Discharge Diagnosis (1) Malnutrition: Code(s): E46 - Unspecified protein-calorie malnutrition Status: Acute Assessment and Plan: Patient with continued chronic weight loss 2/2 chronic disease process. Recommend continue supplementation with pulmocare nutritional supplement. (2) Hyponatremia: Code(s): E87.1 - Hypo-osmolality and hyponatremia Status: Acute Assessment and Plan: Sodium 134, stable. (3) Macrocytic anemia: Code(s): D53.9 - Nutritional anemia, unspecified Status: Acute Assessment and Plan: Hgb 11.6, stable without acute s/s of bleeding. (4) Acute exacerbation of chronic obstructive pulmonary disease: Code(s): J44.1 - Chronic obstructive pulmonary disease with (acute) exacerbation Status: Acute Assessment and Plan: Severe end stage COPD, continues to smoke. Baseline supp. O2 flow rate 2L, will need 4L with activity/exertion with home O2 test today. (5) Chronic respiratory failure with hypoxia, on home oxygen therapy: Code(s): J96.11 - Chronic respiratory failure with hypoxia; Z99.81 - Dependence on supplemental oxygen Status: Acute Assessment and Plan: New home O2 orders include 2L at rest, 4L with activity. (6) Peripheral vascular disease: Code(s): I73.9 - Peripheral vascular disease, unspecified Status: Acute Assessment and Plan: Was not on antiplatelet therapy prior to admission, he has been instructed to start asa 81mg daily. (7) Tobacco dependence: Code(s): F17.200 - Nicotine dependence, unspecified, uncomplicated Status: Acute Assessment and Plan: Discussed cessation. He does not seem motivated on this. DS: Summary Hospital Course Reason for hospitalization: Acute COPD exacerbation, chronic hypoxia. Hospital Course: Wagner Cronin is a 66 year old male who presented with acute COPD exacerbation from home. He has had 3 similar hospitalizations int he last 5 months. He continues to smoke, although not as much as prior per his report. He was treated with high dose steroids and azithromycin with some improvement in symptoms. His symptoms have not fully resolved, although he is on his home O2 flow at rest. His lung function is quite poor and he moves little air on examination. Pulmonology was consulted and their recommendations will be prescribed. This includes a 2 week prednisone taper, a change in inhaler therapy, and addition of daliresp. The patient will need to increase his nutrition to gain strength to be able to consider the possibility of pulmonary rehab. He will need to cease smoking. At this time he is not a good candidate for pulmonary rehab d/t his activity intolerance/weakness. On day of discharge the patient is not in distress. He does note that he is winded very easily, but he also notes this is true at home at his baseline as well. Wagner will need close o/p f/u with his pulmonlogist and primary care. His disease severity is quite advanced. Time spent discussing smoking cessation with patient: 3 to 10 minutes Status at Discharge Functional status at discharge: independent ambulation Overall status at discharge: patient is progressing back to baseline Time Spent with Patient Time attestation: Total time spent providing and/or coordinating discharge services: Time spent: Greater than 30 minutes Exam Narrative: GENERAL APPEARANCE: Appears to be in no acute distress. HEAD: normocephalic atraumatic ENT: Hearing grossly intact, clear nasal discharge. NECK: Neck supple, trachea midline. CARDIAC: Normal S1/S2. Rhythm is regular. No murmurs, rubs, or gallops. No cyanosis or pallor. Extremities are warm and well perfused. LUNGS: Mild whee
[2022-09-07 18:30] LABS: Soluble Transferrin Receptor 0.95 mg/L (0.76-1.76)
[2022-09-07] MEDS: ACETAMINOPHEN 325 MG TABLET 650 MG PO (20:29)
[2022-09-07] MEDS: LORazepam (*CRX) 1 MG TABLET PO (20:29)
[2022-09-07] MEDS: GABAPENTIN 100 MG CAPSULE 200 MG PO (20:29)
[2022-09-07] MEDS: ATORVASTATIN 40 MG TABLET PO (20:32)
[2022-09-08] VITALS (13 sets, daily range): BP systolic 97–119; BP diastolic 55–79; PULSE 82–110; RESP 16–20; TEMP 36.4; O2SAT 91–98
[2022-09-08] MEDS: IPRATROPIUM BR 0.02% INH SOLN 0.5 MG/2.5 ML VIAL INHALATION ×4 (02:45→21:27)
[2022-09-08] MEDS: ALBUTEROL SULFATE NEB 2.5 MG/3 ML INH 5 MG INHALATION ×4 (02:45→21:27)
[2022-09-08] MEDS: FLUTICASONE/SALMETEROL 115-21 MCG INHALER 1 PUFF 2 PUFF INHALATION ×2 (08:35→21:28)
[2022-09-08] MEDS: LORATADINE 10 MG TABLET PO (09:11)
[2022-09-08] MEDS: AZITHROMYCIN 250 MG TABLET PO (09:11)
[2022-09-08] MEDS: ASPIRIN 81 MG ENTERIC TABLET PO (09:11)
[2022-09-08] MEDS: ENOXAPARIN 40 MG/0.4 ML SYRINGE SUB-Q (09:11)
[2022-09-08] MEDS: FERROUS SULFATE 324 MG TABLET PO (09:12)
[2022-09-08] MEDS: predniSONE 20 MG TABLET 40 MG PO (09:12)
[2022-09-08] MEDS: guaiFENesin 12 HR 600 MG TABCR PO ×2 (09:12→21:11)
[2022-09-08 10:07] LABS: pH ABG 7.391 (7.350-7.450)
[2022-09-08 10:08] LABS: Base Excess ABG 9.5 mEq/l (+/-2.0); PCO2 ABG 62.4 mmHg (35.0-45.0); PO2 ABG 46.5 mmHg (80.0-100.0)
[2022-09-08 10:09] LABS: Fractional Inspired Oxygen 21 %; Modified Allen's Test Pass; Oxygen Content ABG 16.9 %vol (16.0-22.0); Oxygen Saturation ABG 80.8 % (95.0-100.0); Site Drawn LEFT RADIAL; Total Hemoglobin 14.9 g/dL (12.0-18.0)
[2022-09-08 10:10] LABS: Device ROOM AIR
[2022-09-08 10:11] LABS: Alveolar/Arterial O2 Gradient 28.5 mmHg
[2022-09-08 10:13] LABS: PO2 FiO2 Ratio Arterial Blood 2.21 %
[2022-09-08 10:15] LABS: Oxyhemoglobin 80.8 % THb (90.0-100.0)
--- NOTE | 2022-09-08 10:45 | PCOTNOTE ---
Attempted to see patient this am, however patient having meeting with doctor and several family members at this time.
--- NOTE | 2022-09-08 11:01 | PM.IMPN ---
Progress Note: A&P Assessment and Plan (1) Acute exacerbation of chronic obstructive pulmonary disease: Code(s): J44.1 - Chronic obstructive pulmonary disease with (acute) exacerbation Status: Acute Assessment and Plan: Severe end stage COPD. He continues to smoke cigarettes. Treated with IV solumedrol and empiric azithromycin. He was transitioned to oral prednisone with 2 week taper, maintenance azithromycin, and Trelegy inhaler in preparation for discharge. Home O2 evaluation showed need for O2 flow rate 2L at rest and 4L with activity/exertion on 09/07/22 patient had worsening respiratory complaints today, 09/08/22. CXR without new infiltrates and unchanged. ABG with worsening hypoxemia, but unchanged hypercapnia. Significant wheezing noted on exam with increased O2 needs up to 6L. Changed back to IV solumedrol 60 mg Q8 hours, on scheduled duonebs, Trelegy inhaler, and maintance azithromycin. Lasix IV x1 given per Pulmonology (2) Chronic respiratory failure with hypoxia, on home oxygen therapy: Code(s): J96.11 - Chronic respiratory failure with hypoxia; Z99.81 - Dependence on supplemental oxygen Status: Acute Assessment and Plan: Acute on chronic respiratory failure with hypoxia and hypercapnia. continue COPD management as above. He could not tolerate Bipap. (3) Malnutrition: Qualifiers: Malnutrition type: protein-calorie malnutrition Protein-calorie malnutrition severity: severe Qualified Code(s): E43 - Unspecified severe protein-calorie malnutrition Code(s): E46 - Unspecified protein-calorie malnutrition Status: Acute Assessment and Plan: Severe protein malnutrition. Patient with continued chronic weight loss 2/2 chronic disease process. Recommend continue supplementation with pulmocare nutritional supplement. Recommended small frequent meals. (4) Hyponatremia: Code(s): E87.1 - Hypo-osmolality and hyponatremia Status: Resolved Assessment and Plan: Sodium 134, stable. (5) Macrocytic anemia: Code(s): D53.9 - Nutritional anemia, unspecified Status: Chronic Assessment and Plan: Hgb 11.6, stable without acute s/s of bleeding. B12 and folate within normal limits (6) Peripheral vascular disease: Code(s): I73.9 - Peripheral vascular disease, unspecified Status: Chronic Assessment and Plan: Was not on antiplatelet therapy prior to admission, he has been instructed to start asa 81mg daily. (7) Tobacco dependence: Code(s): F17.200 - Nicotine dependence, unspecified, uncomplicated Status: Chronic Assessment and Plan: Current everyday smoker with 61 pack-year history. Recommended to quit smoking and discussed cessation tactics. He does not seem motivated on this. (8) Generalized weakness: Code(s): R53.1 - Weakness Status: Acute Assessment and Plan: Secondary to malnutrition and end-stage COPD. Consulted PT/OT. We discussed short-term rehab in-depth and he is agreeable to this. Care coordination following and assisting. We discussed at length criteria for hospice referral, benefits and general focus of hospice, including symptoms control for pain, dyspnea and anxiety. He reported understanding of all information provided and will continue to think about this. Time Spent With Patient Time: >50 minutes of time spent with patient assessment, patient and family education, reviewing/ordering labs, vitals, chest x-ray, nursing and specialist documentation, as well as treatment plan and discharge care coordination. All patient and family questions were answered to the best of my ability. Subjective Date/time seen: 09/08/22 11:01 Patient found lying in bed. He reports increasing dyspnea with minimal exertion in the bed that seems worse than yesterday. His nurse reports his spO2 was <85% at rest on his regular 3L NC. He reports increased cough, sputum and
[2022-09-08 12:27] LABS: Basophils Absolute Auto 0.1 K/mm3 (0.0-0.1); Basophils Percent Auto 0.4 % (0.2-1.2); Hematocrit 43.1 % (42.0-52.0); Hemoglobin 13.8 g/dL (14.0-18.0); Immature Granulocyte Absolute 0.23 K/mm3 (0.00-0.031); Immature Granulocyte Percent A 1.4 % (0-0.5); Lymphocytes Absolute Auto 0.38 K/mm3 (0.9-3.2); Lymphocytes Percent Auto 2.3 % (18.3-44.2); Mean Corpuscular Hemoglobin 35.8 pg (26-34); Mean Corpuscular Volume 111.7 fl (80-100); Mean Platelet Volume 10.7 fl (7.4-10.4); Monocytes Absolute Auto 0.8 K/mm3 (0.1-0.6); Monocytes Percent Auto 5.1 % (2.6-8.5); Neutrophils Absolute Auto 14.9 K/mm3 (1.3-6.7); Neutrophils Percent Auto 90.8 % (45.5-73.1); Platelet Count Result 235 k/mm3 (150-375); Red Blood Count 3.86 M/mm3 (4.6-6.20); Red Cell Distribution Width 13.3 % (11.5-14.5); White Blood Count 16.4 K/mm3 (4.5-10.0)
[2022-09-08 12:38] LABS: Blood Urea Nitrogen 14 mg/dL (9-20); Calcium 8.5 mg/dL (8.4-10.2); Carbon Dioxide > 40 mmol/L (22-30); Chloride 92 mmol/L (98-107); Estimated CRCL calculation 80 ml/min; Estimated Glomerular Filt Rate > 60; Glucose 81 mg/dL (65-110); Magnesium 2.1 mg/dL (1.6-2.3); Potassium 4.2 mmol/L (3.4-5.0); Sodium 134 mmol/L (137-145)
[2022-09-08 12:55] LABS: Macrocytosis 1+ (NORMAL); Platelet Estimate Adequate (Adequate); Schistocytes None Seen (NORMAL)
--- NOTE | 2022-09-08 14:08 | PM.PNPUL ---
Progress Note: A&P Assessment and Plan (1) Acute exacerbation of chronic obstructive pulmonary disease: Code(s): J44.1 - Chronic obstructive pulmonary disease with (acute) exacerbation Status: Acute Assessment and Plan: this 66-year-old man has evidence of end-stage COPD, frequent severe exacerbations with 3 hospitalization over the last 5 months, chronic hypoxemic hypercapnic respiratory failure on just supplemental oxygen, history of intolerance to noninvasive ventilatory support for chronic hypercapnia home, currently actively smoking, with significant weight loss over the last year and incapacitated dyspnea with any activity.? In addition he has increased anxiety.? patient requested tranquilizer medicine last night. He was found to have a hypoxemia this a.m.. Also physical exam expiratory wheezing, more than before. Chest x-ray showed no new infiltrates. The patient was placed on higher FiO2. He was placed back on IV Solu-Medrol 60 mg Q 8, and given IV Lasix 20 mg as he is fluid positive. I have discontinued gabapentin and tranquilizer because of potential suppression of [employer] with worsening of gas exchange. patient does not want to be placed on BiPAP support as he cannot tolerated. Prognosis is poor given his end-stage COPD with weight loss and multiple hospitalizations for severe exacerbations. (2) Chronic respiratory failure with hypoxia, on home oxygen therapy: Code(s): J96.11 - Chronic respiratory failure with hypoxia; Z99.81 - Dependence on supplemental oxygen Status: Acute (3) Malnutrition: Code(s): E46 - Unspecified protein-calorie malnutrition Status: Acute (4) Tobacco dependence: Code(s): F17.200 - Nicotine dependence, unspecified, uncomplicated Status: Acute Subjective Date/time seen: 09/08/22 14:08 Interval history: Patient again complaining of severe shortness of breath with any movement. Shortness of breath when trying to sit on the edge of the bed. He stated he slept well last night but requested tranquilizer. Arterial blood gases done this a.m. showed worsening hypoxemia but not hypercapnia. Review of Systems Review of Systems: All systems reviewed & are unremarkable except as noted in HPI and below ( HPI and below) Exam Narrative: GENERAL APPEARANCE: Well developed, well nourished, alert and cooperative, and appears to be in moderate respiratory distress while semi recumbent in bed SKIN: Inspection of the skin reveals no rashes, ulcerations or petechiae. HEENT: Sclerae anicteric and conjunctivae pink and moist. Extraocular movements were intact and pupils were equal, round. The oral mucosa, hard and soft palate, tongue and posterior pharynx were normal. NECK: Supple. There was no thyroid enlargement, and no tenderness, or masses were felt. CHEST: hyperinflated chest with no evidence of keep the scoliosis LUNGS: distant breath sounds bilaterally mild expiratory wheezing CARDIAC: There was a regular rate and rhythm without any murmurs ABDOMEN: Soft and nontender with normal bowel sounds. There was no organomegaly. LYMPH NODES: No lymphadenopathy was appreciated in the neck EXTREMITIES: No cyanosis, clubbing or edema. NEUROLOGIC: Alert and oriented x 3. Normal affect. Objective Data Vital Signs Vital Signs: Vital Signs - 24 hr 09/07/22 14:11 09/07/22 14:46 09/07/22 14:59 Temperature 36.5 C Pulse Rate 88 84 96 Respiratory Rate 20 16 16 Blood Pressure 150/70 H Pulse Oximetry 93 Oxygen Delivery Oxygen Flow Rate 09/07/22 20:00 09/07/22 21:50 09/07/22 22:10 Temperature 36.8 C Pulse Rate 96 94 81 Respiratory Rate 16 14 Blood Pressure 110/83 Pulse Oximetry 93 96 96 Oxygen Delivery Nasal Cannula Nasal Cannula Oxygen Flow Rate 3 3 09/07/22 22:10 09/07/22 22:28 09/08/22 02:45 Temperature Pulse Rate 81 88 85 Respiratory Rate 18 18 18 Blood Pressure Pulse Oximetry Oxygen Delivery Oxygen Flow Rate
[2022-09-08] MEDS: FUROSEMIDE INJ 40 MG/4 ML VIAL 20 MG IV PUSH (16:06)
[2022-09-08] MEDS: methylPREDNISolone SOD SUCC 125 MG VIAL 60 MG IV PUSH (21:11)
[2022-09-08] MEDS: ATORVASTATIN 40 MG TABLET PO (21:11)
[2022-09-08] MEDS: ACETAMINOPHEN 325 MG TABLET 650 MG PO (21:11)
[2022-09-09] VITALS (13 sets, daily range): BP systolic 106–141; BP diastolic 64–71; PULSE 78–101; RESP 14–20; TEMP 36.3–36.8; O2SAT 93–100
[2022-09-09] MEDS: ALBUTEROL SULFATE NEB 2.5 MG/3 ML INH 5 MG INHALATION ×4 (02:26→21:28)
[2022-09-09] MEDS: IPRATROPIUM BR 0.02% INH SOLN 0.5 MG/2.5 ML VIAL INHALATION ×4 (02:26→21:28)
[2022-09-09] MEDS: methylPREDNISolone SOD SUCC 125 MG VIAL 60 MG IV PUSH ×3 (05:42→21:00)
--- NOTE | 2022-09-09 07:18 | PM.IMPN ---
Progress Note: A&P Assessment and Plan (1) Acute exacerbation of chronic obstructive pulmonary disease: Code(s): J44.1 - Chronic obstructive pulmonary disease with (acute) exacerbation Status: Acute Assessment and Plan: Severe end stage COPD. He continues to smoke cigarettes. Treated with IV solumedrol and empiric azithromycin this hospitalization . He was transitioned to oral prednisone with 2 week taper, maintenance azithromycin, and plans for Trelegy inhaler in preparation for discharge. Home O2 evaluation showed need for O2 flow rate 2L at rest and 4L with activity/exertion on 09/07/22 09/08/22 patient had worsening respiratory complaints. CXR without new infiltrates and essentially unchanged from previous imaging. ABG with worsening hypoxemia, but unchanged hypercapnia. Significant wheezing noted on exam with increased O2 needs up to 6L. He was changed back to IV solumedrol 60 mg Q8 hours, on scheduled duonebs, Trelegy inhaler, and maintenance azithromycin. Lasix IV x1 given per Pulmonology Continued on solumedrol IV and duonebs, wean O2 to home needs. Encouraged PEP therapy. Less wheezing on exam today. (2) Chronic respiratory failure with hypoxia, on home oxygen therapy: Code(s): J96.11 - Chronic respiratory failure with hypoxia; Z99.81 - Dependence on supplemental oxygen Status: Acute Assessment and Plan: Acute on chronic respiratory failure with hypoxia and hypercapnia. continue COPD management as above. He could not tolerate Bipap. (3) Malnutrition: Qualifiers: Malnutrition type: protein-calorie malnutrition Protein-calorie malnutrition severity: severe Qualified Code(s): E43 - Unspecified severe protein-calorie malnutrition Code(s): E46 - Unspecified protein-calorie malnutrition Status: Acute Assessment and Plan: Severe protein malnutrition. Patient with continued chronic weight loss 2/2 chronic disease process. Recommend continue supplementation with pulmocare nutritional supplement. Recommended small frequent meals. (4) Hyponatremia: Code(s): E87.1 - Hypo-osmolality and hyponatremia Status: Resolved Assessment and Plan: Sodium 134, stable. (5) Macrocytic anemia: Code(s): D53.9 - Nutritional anemia, unspecified Status: Chronic Assessment and Plan: Chronic, Hgb 11.6, stable without acute s/s of bleeding. B12 and folate within normal limits Secondary to malnutrition and anemia of chronic disease from end-stage COPD (6) Peripheral vascular disease: Code(s): I73.9 - Peripheral vascular disease, unspecified Status: Chronic Assessment and Plan: Chronic, Started on asa 81mg daily and continued lipitor 40 mg at HS. He c/o bilateral lower extremity cramping/pain. ?claudication. Consider adding cilostazol. (7) Tobacco dependence: Code(s): F17.200 - Nicotine dependence, unspecified, uncomplicated Status: Chronic Assessment and Plan: Current everyday smoker with 61 pack-year history. Recommended to quit smoking and discussed cessation tactics. He does not seem motivated on this. (8) Generalized weakness: Code(s): R53.1 - Weakness Status: Acute Assessment and Plan: Secondary to malnutrition and end-stage COPD. Consulted PT/OT. We discussed short-term rehab in-depth and he is agreeable to this. Care coordination following and assisting. We discussed at length criteria for hospice referral, benefits and general focus of hospice, including symptoms control for pain, dyspnea and anxiety. He reported understanding of all information provided and will continue to think about this. (9) Insomnia: Code(s): G47.00 - Insomnia, unspecified Status: Acute Assessment and Plan: Gabapentin and lorazepam stopped due to worsening morning hypoxemia. trial melatonin 5 mg at HS. Plan CODE STATUS: DNR Discharge disposition: [facility]
[2022-09-09] MEDS: FERROUS SULFATE 324 MG TABLET PO (09:44)
[2022-09-09 09:45] LABS: Basophils Absolute Auto 0.1 K/mm3 (0.0-0.1); Basophils Percent Auto 0.4 % (0.2-1.2); Hematocrit 45.8 % (42.0-52.0); Immature Granulocyte Absolute 0.23 K/mm3 (0.00-0.031); Immature Granulocyte Percent A 1.5 % (0-0.5); Lymphocytes Absolute Auto 0.52 K/mm3 (0.9-3.2); Lymphocytes Percent Auto 3.4 % (18.3-44.2); Mean Corpuscular HGB Conc 32.8 g/dl (32-36); Mean Corpuscular Hemoglobin 35.9 pg (26-34); Mean Corpuscular Volume 109.6 fl (80-100); Mean Platelet Volume 11.1 fl (7.4-10.4); Monocytes Absolute Auto 0.3 K/mm3 (0.1-0.6); Neutrophils Absolute Auto 14.3 K/mm3 (1.3-6.7); Neutrophils Percent Auto 92.7 % (45.5-73.1); Platelet Count Result 300 k/mm3 (150-375); Red Blood Count 4.18 M/mm3 (4.6-6.20); Red Cell Distribution Width 13.2 % (11.5-14.5); White Blood Count 15.4 K/mm3 (4.5-10.0)
[2022-09-09] MEDS: LORATADINE 10 MG TABLET PO (09:45)
[2022-09-09] MEDS: guaiFENesin 12 HR 600 MG TABCR PO ×2 (09:45→20:59)
[2022-09-09] MEDS: ENOXAPARIN 40 MG/0.4 ML SYRINGE SUB-Q (09:45)
[2022-09-09] MEDS: ASPIRIN 81 MG ENTERIC TABLET PO (09:45)
[2022-09-09 10:05] LABS: Blood Urea Nitrogen 23 mg/dL (9-20); CRP 2.8 mg/dL (<1.0); Carbon Dioxide > 40 mmol/L (22-30); Chloride 85 mmol/L (98-107); Estimated CRCL calculation 82 ml/min; Estimated Glomerular Filt Rate > 60; Glucose 145 mg/dL (65-110); Potassium 3.9 mmol/L (3.4-5.0); Sodium 132 mmol/L (137-145)
[2022-09-09 11:08] LABS: Procalcitonin 0.1 ng/mL
--- NOTE | 2022-09-09 11:48 | PM.PNPUL ---
Progress Note: A&P Assessment and Plan (1) Acute exacerbation of chronic obstructive pulmonary disease: Code(s): J44.1 - Chronic obstructive pulmonary disease with (acute) exacerbation Status: Acute Assessment and Plan: this 66-year-old man has evidence of end-stage COPD, frequent severe exacerbations with 3 hospitalization over the last 5 months, chronic hypoxemic hypercapnic respiratory failure on just supplemental oxygen, history of intolerance to noninvasive ventilatory support for chronic hypercapnia , still smoking, with significant weight loss over the last year and incapacitated dyspnea with any activity.? In addition he has increased anxiety.? patient was placed back on IV steroids because of increasing wheezing on physical exam. His respiratory status is slightly improved since yesterday morning but continues to have shortness of breath. FiO2 lower today. Plan: Continue with current regimen IV Solu-Medrol nebulized short-acting bronchodilators and other medications for frequent COPD exacerbations. Anxiety seems to be a problem as he cannot sleep well at night. Patient waiting to be transferred to rehabilitation unit. (2) Chronic respiratory failure with hypoxia, on home oxygen therapy: Code(s): J96.11 - Chronic respiratory failure with hypoxia; Z99.81 - Dependence on supplemental oxygen Status: Acute (3) Malnutrition: Qualifiers: Malnutrition type: protein-calorie malnutrition Protein-calorie malnutrition severity: severe Qualified Code(s): E43 - Unspecified severe protein-calorie malnutrition Code(s): E46 - Unspecified protein-calorie malnutrition Status: Acute (4) Tobacco dependence: Code(s): F17.200 - Nicotine dependence, unspecified, uncomplicated Status: Chronic Subjective Date/time seen: 09/09/22 11:48 Interval history: continues to complain of shortness of breath but less than yesterday. Still in bed while on nasal cannula. He did not sleep well last night. Review of Systems Review of Systems: All systems reviewed & are unremarkable except as noted in HPI and below ( HPI and below) Exam Narrative: GENERAL APPEARANCE: Well developed, well nourished, alert and cooperative, and appears to be in moderate respiratory distress while semi recumbent in bed SKIN: Inspection of the skin reveals no rashes, ulcerations or petechiae. HEENT: Sclerae anicteric and conjunctivae pink and moist. Extraocular movements were intact and pupils were equal, round. The oral mucosa, hard and soft palate, tongue and posterior pharynx were normal. NECK: Supple. There was no thyroid enlargement, and no tenderness, or masses were felt. CHEST: hyperinflated chest with no evidence of keep the scoliosis LUNGS: distant breath sounds bilaterally mild expiratory wheezing CARDIAC: There was a regular rate and rhythm without any murmurs ABDOMEN: Soft and nontender with normal bowel sounds. There was no organomegaly. LYMPH NODES: No lymphadenopathy was appreciated in the neck EXTREMITIES: No cyanosis, clubbing or edema. NEUROLOGIC: Alert and oriented x 3. Normal affect. Objective Data Vital Signs Vital Signs: Vital Signs - 24 hr 09/08/22 14:20 09/08/22 15:17 09/08/22 14:30 Temperature 36.4 C Pulse Rate 82 110 H 84 Respiratory Rate 18 19 20 Blood Pressure 98/60 L Pulse Oximetry 93 Oxygen Delivery Oxygen Flow Rate 09/08/22 20:00 09/08/22 21:30 09/08/22 21:52 Temperature Pulse Rate 90 106 H 109 H Respiratory Rate 19 20 20 Blood Pressure Pulse Oximetry 93 Oxygen Delivery Nasal Cannula Oxygen Flow Rate 3 09/08/22 22:07 09/09/22 02:28 09/08/22 21:30 Temperature 36.4 C Pulse Rate 100 87 Respiratory Rate 18 18 Blood Pressure 97/55 L Pulse Oximetry 93 91 Oxygen Delivery Nasal Cannula Oxygen Flow Rate 3 09/09/22 06:16 09/09/22 08:00 09/09/22 08:00 Temperature 36.8 C Pulse Rate 87 86 Respiratory Rate 14 20
[2022-09-09] MEDS: FLUTICASONE/UMECLIDIN/VILANTER 200-62.5-25 MCG ELLIPTA 1 PUFF INHALATION (13:30)
[2022-09-09] MEDS: ATORVASTATIN 40 MG TABLET PO (20:59)
[2022-09-09] MEDS: MELATONIN 5 MG TABLET PO (20:59)
[2022-09-10] VITALS (11 sets, daily range): BP systolic 101–138; BP diastolic 53–73; PULSE 77–95; RESP 16–18; TEMP 36–36.9; O2SAT 90–96
[2022-09-10] MEDS: IPRATROPIUM BR 0.02% INH SOLN 0.5 MG/2.5 ML VIAL INHALATION ×2 (03:34→08:07)
[2022-09-10] MEDS: ALBUTEROL SULFATE NEB 2.5 MG/3 ML INH 5 MG INHALATION ×3 (03:34→14:40)
[2022-09-10] MEDS: methylPREDNISolone SOD SUCC 125 MG VIAL 60 MG IV PUSH (06:09)
--- NOTE | 2022-09-10 07:32 | P.PNIM_ITS ---
Progress Note: A&P Assessment and Plan (1) Acute exacerbation of chronic obstructive pulmonary disease: Code(s): J44.1 - Chronic obstructive pulmonary disease with (acute) exacerbation Status: Acute Assessment and Plan: Severe end stage COPD. He continues to smoke cigarettes. * Treated with IV solumedrol and empiric azithromycin this hospitalization . * He was transitioned to oral prednisone with 2 week taper, maintenance azithromycin, and plans for Trelegy inhaler in preparation for discharge. * Home O2 evaluation showed need for O2 flow rate 2L at rest and 4L with activity/exertion on 09/07/22 * 09/08/22 patient had worsening respiratory complaints. CXR without new infiltrates and essentially unchanged from previous imaging. ABG with worsening hypoxemia, but unchanged hypercapnia. Significant wheezing noted on exam with increased O2 needs up to 6L. He was changed back to IV solumedrol 60 mg Q8 hours, on scheduled duonebs, Trelegy inhaler, and maintenance azithromycin. Lasix IV x1 given per Pulmonology * Systemic steroids and nebs per Pulmonology. Wheezing improving. (2) Chronic respiratory failure with hypoxia, on home oxygen therapy: Code(s): J96.11 - Chronic respiratory failure with hypoxia; Z99.81 - Dependence on supplemental oxygen Status: Acute Assessment and Plan: Acute on chronic respiratory failure with hypoxia and hypercapnia. * continue COPD management as above. * He could not tolerate Bipap. * Requiring 4L O2 with exertion, 2-3L at rest. (3) Malnutrition: Qualifiers: Malnutrition type: protein-calorie malnutrition Protein-calorie malnutrition severity: severe Qualified Code(s): E43 - Unspecified severe protein-calorie malnutrition Code(s): E46 - Unspecified protein-calorie malnutrition Status: Acute Assessment and Plan: Severe protein malnutrition. Patient with continued chronic weight loss 2/2 chronic disease process. * Recommend continue supplementation with pulmocare nutritional supplement. * Recommended small frequent meals. (4) Hyponatremia: Code(s): E87.1 - Hypo-osmolality and hyponatremia Status: Resolved Assessment and Plan: Sodium 134, stable. (5) Macrocytic anemia: Code(s): D53.9 - Nutritional anemia, unspecified Status: Chronic Assessment and Plan: Chronic, Hgb 11.6, stable without acute s/s of bleeding. B12 and folate within normal limits Secondary to malnutrition and anemia of chronic disease from end-stage COPD (6) Peripheral vascular disease: Code(s): I73.9 - Peripheral vascular disease, unspecified Status: Chronic Assessment and Plan: Chronic, Started on asa 81mg daily and continued lipitor 40 mg at HS. He c/o bilateral lower extremity cramping/pain. ?claudication. Consider adding cilostazol if persists. (7) Tobacco dependence: Code(s): F17.200 - Nicotine dependence, unspecified, uncomplicated Status: Chronic Assessment and Plan: Current everyday smoker with 61 pack-year history. * Recommended to quit smoking and discussed cessation tactics. He does not seem motivated on this. (8) Generalized weakness: Code(s): R53.1 - Weakness Status: Acute Assessment and Plan: Secondary to malnutrition and end-stage COPD. * Consulted PT/OT. * We discussed short-term rehab in-depth and he is agreeable to this. Care coordination following and assisting. * We discussed at length criteria for hospice referral, benefits and general focus of hospice, including symptoms control
[2022-09-10] MEDS: FLUTICASONE/UMECLIDIN/VILANTER 200-62.5-25 MCG ELLIPTA 1 PUFF INHALATION (08:09)
[2022-09-10] MEDS: ENOXAPARIN 40 MG/0.4 ML SYRINGE SUB-Q (08:19)
[2022-09-10] MEDS: FERROUS SULFATE 324 MG TABLET PO (08:19)
[2022-09-10] MEDS: guaiFENesin 12 HR 600 MG TABCR PO ×2 (08:19→20:25)
[2022-09-10] MEDS: LORATADINE 10 MG TABLET PO (08:19)
[2022-09-10] MEDS: ASPIRIN 81 MG ENTERIC TABLET PO (08:19)
--- NOTE | 2022-09-10 11:11 | PCOTNOTE ---
Attempted to see patient for OT treatment. Patient declined stating he'd like to rest today.
--- NOTE | 2022-09-10 12:06 | PM.PNPUL ---
Progress Note: A&P Assessment and Plan (1) Acute exacerbation of chronic obstructive pulmonary disease: Code(s): J44.1 - Chronic obstructive pulmonary disease with (acute) exacerbation Status: Acute Assessment and Plan: this 66-year-old man has evidence of end-stage COPD, frequent severe exacerbations with 3 hospitalization over the last 5 months, chronic hypoxemic hypercapnic respiratory failure on just supplemental oxygen, history of intolerance to noninvasive ventilatory support for chronic hypercapnia , still smoking, with significant weight loss over the last year and incapacitated dyspnea with any activity.? In addition he has increased anxiety.? . His respiratory status is slightly improved since yesterday morning but continues to have shortness of breath. he has less wheezing today. Plan: Patient was switched to a prednisone 40 mg daily starting in a.m. patient waiting to be transferred to rehabilitation unit. He will need to continue with his triple inhaler as maintenance bronchodilator, home O2, nebulized short-acting bronchodilators p.r.n. Also as an outpatient he needs to start treatment with Daliresp 500 mcg daily, azithromycin 250 mg 3 days a week. I would continue with oral prednisone 40 mg daily with tapering down to 10 mg over the next 3 weeks. Patient may need to continue with low-dose steroids like prednisone 5-10 mg daily for frequent exacerbations. He plans to follow-up with his banker mason post-discharge. will sign off please call with any questions. (2) Chronic respiratory failure with hypoxia, on home oxygen therapy: Code(s): J96.11 - Chronic respiratory failure with hypoxia; Z99.81 - Dependence on supplemental oxygen Status: Acute (3) Malnutrition: Qualifiers: Malnutrition type: protein-calorie malnutrition Protein-calorie malnutrition severity: severe Qualified Code(s): E43 - Unspecified severe protein-calorie malnutrition Code(s): E46 - Unspecified protein-calorie malnutrition Status: Acute (4) Tobacco dependence: Code(s): F17.200 - Nicotine dependence, unspecified, uncomplicated Status: Chronic Subjective Date/time seen: 09/10/22 12:06 Interval history: Patient has less shortness of breath this a.m.. Slept well last night. Has no new respiratory symptoms. Remaining on low-flow oxygen via nasal cannula. Waiting to be transferred to rehabilitation unit. Review of Systems Review of Systems: All systems reviewed & are unremarkable except as noted in HPI and below ( H PI and below) Exam Narrative: GENERAL APPEARANCE: Well developed, well nourished, alert and cooperative, and appears to be in moderate respiratory distress while semi recumbent in bed SKIN: Inspection of the skin reveals no rashes, ulcerations or petechiae. HEENT: Sclerae anicteric and conjunctivae pink and moist. Extraocular movements were intact and pupils were equal, round. The oral mucosa, hard and soft palate, tongue and posterior pharynx were normal. NECK: Supple. There was no thyroid enlargement, and no tenderness, or masses were felt. CHEST: hyperinflated chest with no evidence of keep the scoliosis LUNGS: distant breath sounds bilaterally less expiratory wheezing today CARDIAC: There was a regular rate and rhythm without any murmurs ABDOMEN: Soft and nontender with normal bowel sounds. There was no organomegaly. LYMPH NODES: No lymphadenopathy was appreciated in the neck EXTREMITIES: No cyanosis, clubbing or edema. NEUROLOGIC: Alert and oriented x 3. Normal affect. Objective Data Vital Signs Vital Signs: Vital Signs - 24 hr 09/09/22 13:34 09/09/22 13:52 09/09/22 14:00 Temperature 36.6 C Pulse Rate 78 101 H 85 Respiratory Rate 20 20 20 Blood Pressure 125/67 Pulse Oximetry 95 Oxygen Delivery Oxygen Flow Rate 09/09/22 21:30 09/09/22 21:31 09/09/22 20:00 Temperature Pulse Rate 90 Respiratory Rate 20 Blood Pressure
[2022-09-10] MEDS: ACETAMINOPHEN 325 MG TABLET 650 MG PO (20:25)
[2022-09-10] MEDS: MELATONIN 5 MG TABLET PO (20:25)
[2022-09-10] MEDS: ATORVASTATIN 40 MG TABLET PO (20:25)
[2022-09-11] VITALS (9 sets, daily range): BP systolic 111–125; BP diastolic 66–71; PULSE 77–88; RESP 17–18; TEMP 35.9–37; O2SAT 92–96
[2022-09-11 06:21] LABS: Basophils Absolute Auto 0.1 K/mm3 (0.0-0.1); Basophils Percent Auto 0.8 % (0.2-1.2); Hematocrit 42.2 % (42.0-52.0); Hemoglobin 13.6 g/dL (14.0-18.0); Immature Granulocyte Absolute 0.55 K/mm3 (0.00-0.031); Immature Granulocyte Percent A 4.1 % (0-0.5); Lymphocytes Absolute Auto 1.35 K/mm3 (0.9-3.2); Lymphocytes Percent Auto 10.1 % (18.3-44.2); Mean Corpuscular HGB Conc 32.2 g/dl (32-36); Mean Corpuscular Hemoglobin 35.4 pg (26-34); Mean Corpuscular Volume 109.9 fl (80-100); Mean Platelet Volume 10.7 fl (7.4-10.4); Monocytes Percent Auto 7.5 % (2.6-8.5); Neutrophils Absolute Auto 10.4 K/mm3 (1.3-6.7); Neutrophils Percent Auto 77.5 % (45.5-73.1); Platelet Count Result 257 k/mm3 (150-375); Red Blood Count 3.84 M/mm3 (4.6-6.20); White Blood Count 13.4 K/mm3 (4.5-10.0)
[2022-09-11 06:39] LABS: Blood Urea Nitrogen 22 mg/dL (9-20); Calcium 8.6 mg/dL (8.4-10.2); Carbon Dioxide > 40 mmol/L (22-30); Chloride 90 mmol/L (98-107); Estimated CRCL calculation 81 ml/min; Estimated Glomerular Filt Rate > 60; Glucose 70 mg/dL (65-110); Potassium 4.1 mmol/L (3.4-5.0); Sodium 133 mmol/L (137-145)
[2022-09-11] MEDS: AZITHROMYCIN 250 MG TABLET PO (08:53)
[2022-09-11] MEDS: ENOXAPARIN 40 MG/0.4 ML SYRINGE SUB-Q (08:53)
[2022-09-11] MEDS: FERROUS SULFATE 324 MG TABLET PO (08:54)
[2022-09-11] MEDS: guaiFENesin 12 HR 600 MG TABCR PO ×2 (08:54→20:05)
[2022-09-11] MEDS: predniSONE 20 MG TABLET 40 MG PO (08:54)
[2022-09-11] MEDS: ASPIRIN 81 MG ENTERIC TABLET PO (08:54)
[2022-09-11] MEDS: LORATADINE 10 MG TABLET PO (08:54)
[2022-09-11] MEDS: FLUTICASONE/UMECLIDIN/VILANTER 200-62.5-25 MCG ELLIPTA 1 PUFF INHALATION (09:23)
[2022-09-11] MEDS: IPRATROPIUM BR 0.02% INH SOLN 0.5 MG/2.5 ML VIAL INHALATION ×3 (09:28→20:55)
[2022-09-11] MEDS: ALBUTEROL SULFATE NEB 2.5 MG/3 ML INH 5 MG INHALATION (09:28)
--- NOTE | 2022-09-11 11:51 | PCPTNOTE ---
Attempted to see patient for PT, however patient was eating lunch.
--- NOTE | 2022-09-11 12:24 | PCNFU ---
Nutrition Follow-Up Complete: Severe Protein Calorie Malnutrition of Chronic Illness as related to COPD and weight loss as evidenced by 18% weight loss in the past 3 months/subcutanous fat loss in the orbital region(orbital fat pad) and muscle loss in the lutheran region (temporalis muscle). Meet estimated nutritional needs - progressing toward goal Goal: Pt current nutrition is Regular diet. Nutritional ice cream mixed with whole milk ordered TID. Refuses other supplement. Nutrition recommendation: Continue with current diet order and care plan. Agree with diet orders Last recorded weight is 40 kg. Bowel Motility: +1 BM 09/09/22 Labs Reviewed: Hgb 13.6, Alb 2.8, Na 133, BUN 22, Cre 0.4 Meds Noted: Lovenox, predinsone Skin: WNL Additional Notes: Intakes 25-50% meals; 75-100% when family and friends brought in pizza. Discharge planning to rehab or home with home health. Agree with current orders. Will monitor every 7 days.
--- NOTE | 2022-09-11 13:01 | PCPTNOTE ---
Attempted to see patient for PT, however patient refused. Patient had visitors in room and asked PT to come back later. Explained to patient PT might not be able to come back later and it won't be until tomorrow if he refuses now, and patient reported okay.
[2022-09-11] MEDS: ALBUTEROL SULFATE NEB 2.5 MG/3 ML INH INHALATION ×2 (13:28→20:55)
--- NOTE | 2022-09-11 16:23 | PM.IMPN ---
Progress Note: A&P Assessment and Plan (1) Acute exacerbation of chronic obstructive pulmonary disease: Code(s): J44.1 - Chronic obstructive pulmonary disease with (acute) exacerbation Status: Acute Assessment and Plan: Severe end stage COPD. He continues to smoke cigarettes. Treated with IV solumedrol and empiric azithromycin this hospitalization . He was transitioned to oral prednisone with 2 week taper, maintenance azithromycin, and plans for Trelegy inhaler in preparation for discharge. Home O2 evaluation showed need for O2 flow rate 2L at rest and 4L with activity/exertion on 09/07/22 09/08/22 patient had worsening respiratory complaints. CXR without new infiltrates and essentially unchanged from previous imaging. ABG with worsening hypoxemia, but unchanged hypercapnia. Significant wheezing noted on exam with increased O2 needs up to 6L. He was changed back to IV solumedrol 60 mg Q8 hours, on scheduled duonebs, Trelegy inhaler, and maintenance azithromycin. Lasix IV x1 given per Pulmonology Systemic steroids and nebs per Pulmonology. Wheezing improving. Transitioned back to prednisone today 09/11/22 with slow taper per Pulmonary (2) Chronic respiratory failure with hypoxia, on home oxygen therapy: Code(s): J96.11 - Chronic respiratory failure with hypoxia; Z99.81 - Dependence on supplemental oxygen Status: Acute Assessment and Plan: Acute on chronic respiratory failure with hypoxia and hypercapnia. continue COPD management as above. He could not tolerate Bipap. Requiring 4L O2 with exertion, 2-3L at rest. (3) Malnutrition: Qualifiers: Malnutrition type: protein-calorie malnutrition Protein-calorie malnutrition severity: severe Qualified Code(s): E43 - Unspecified severe protein-calorie malnutrition Code(s): E46 - Unspecified protein-calorie malnutrition Status: Acute Assessment and Plan: Severe protein malnutrition. Patient with continued chronic weight loss 2/2 chronic disease process. Recommend continue supplementation with pulmocare nutritional supplement. Recommended small frequent meals. (4) Hyponatremia: Code(s): E87.1 - Hypo-osmolality and hyponatremia Status: Resolved Assessment and Plan: Sodium 134, stable. (5) Macrocytic anemia: Code(s): D53.9 - Nutritional anemia, unspecified Status: Chronic Assessment and Plan: Chronic, Hgb 11.6, stable without acute s/s of bleeding. B12 and folate within normal limits Secondary to malnutrition and anemia of chronic disease from end-stage COPD (6) Peripheral vascular disease: Code(s): I73.9 - Peripheral vascular disease, unspecified Status: Chronic Assessment and Plan: Chronic, Started on asa 81mg daily and continued lipitor 40 mg at HS. He c/o bilateral lower extremity cramping/pain. ?claudication. Consider adding cilostazol if persists. (7) Tobacco dependence: Code(s): F17.200 - Nicotine dependence, unspecified, uncomplicated Status: Chronic Assessment and Plan: Current everyday smoker with 61 pack-year history. Recommended to quit smoking and discussed cessation tactics. He does not seem motivated on this. (8) Generalized weakness: Code(s): R53.1 - Weakness Status: Acute Assessment and Plan: Secondary to malnutrition and end-stage COPD. Consulted PT/OT. We discussed short-term rehab in-depth and he is agreeable to this. Care coordination following and assisting. We discussed at length criteria for hospice referral, benefits and general focus of hospice, including symptoms control for pain, dyspnea and anxiety. He reported understanding of all information provided and will continue to think about this. (9) Insomnia: Code(s): G47.00 - Insomnia, unspecified Status: Acute Assessment and Plan: Gabapentin and lorazepam stopped by Pulmonology due to worsening morning
[2022-09-11] MEDS: ATORVASTATIN 40 MG TABLET PO (20:05)
[2022-09-11] MEDS: MELATONIN 5 MG TABLET PO (20:05)
[2022-09-11] MEDS: ACETAMINOPHEN 325 MG TABLET 650 MG PO (20:05)
[2022-09-12] VITALS (12 sets, daily range): BP systolic 100–132; BP diastolic 55–65; PULSE 72–100; RESP 16–20; TEMP 36.5–36.8; O2SAT 87–99
[2022-09-12] MEDS: FERROUS SULFATE 324 MG TABLET PO (08:03)
[2022-09-12] MEDS: ENOXAPARIN 40 MG/0.4 ML SYRINGE SUB-Q (08:03)
[2022-09-12] MEDS: predniSONE 20 MG TABLET 40 MG PO (08:03)
[2022-09-12] MEDS: guaiFENesin 12 HR 600 MG TABCR PO ×2 (08:03→21:14)
[2022-09-12] MEDS: LORATADINE 10 MG TABLET PO (08:03)
[2022-09-12] MEDS: ASPIRIN 81 MG ENTERIC TABLET PO (08:04)
[2022-09-12] MEDS: ALBUTEROL SULFATE NEB 2.5 MG/3 ML INH INHALATION ×3 (09:32→21:19)
[2022-09-12] MEDS: FLUTICASONE/UMECLIDIN/VILANTER 200-62.5-25 MCG ELLIPTA 1 PUFF INHALATION (09:33)
[2022-09-12] MEDS: IPRATROPIUM BR 0.02% INH SOLN 0.5 MG/2.5 ML VIAL INHALATION ×3 (09:33→21:19)
--- NOTE | 2022-09-12 14:31 | PM.IMPN ---
Progress Note: A&P Assessment and Plan (1) Acute exacerbation of chronic obstructive pulmonary disease: Code(s): J44.1 - Chronic obstructive pulmonary disease with (acute) exacerbation Status: Acute Assessment and Plan: Severe end stage COPD. He continues to smoke cigarettes. Treated with IV solumedrol and empiric azithromycin this hospitalization . He was transitioned to oral prednisone with 2 week taper, maintenance azithromycin, and plans for Trelegy inhaler in preparation for discharge. Home O2 evaluation showed need for O2 flow rate 2L at rest and 4L with activity/exertion on 09/07/22 09/08/22 patient had worsening respiratory complaints. CXR without new infiltrates and essentially unchanged from previous imaging. ABG with worsening hypoxemia, but unchanged hypercapnia. Significant wheezing noted on exam with increased O2 needs up to 6L. He was changed back to IV solumedrol 60 mg Q8 hours, on scheduled duonebs, Trelegy inhaler, and maintenance azithromycin. Lasix IV x1 given per Pulmonology Systemic steroids and nebs per Pulmonology. Wheezing improving. Transitioned back to prednisone 09/11/22 with slow taper per Pulmonary Pulmonary DC recommendations- Trelegy inhaler 1 puff daily, duonebs TID PRN, start outpt treatment with Daliresp 500 mcg daily, azithromycin 250 mg 3 times per week, Prednisone 40 mg daily with taper to 10 mg over 3 weeks. avoid sedating medications. (2) Chronic respiratory failure with hypoxia, on home oxygen therapy: Code(s): J96.11 - Chronic respiratory failure with hypoxia; Z99.81 - Dependence on supplemental oxygen Status: Acute Assessment and Plan: Acute on chronic respiratory failure with hypoxia and hypercapnia. continue COPD management as above. He could not tolerate Bipap. Requiring 4L O2 with exertion, 2-3L at rest. (3) Malnutrition: Qualifiers: Malnutrition type: protein-calorie malnutrition Protein-calorie malnutrition severity: severe Qualified Code(s): E43 - Unspecified severe protein-calorie malnutrition Code(s): E46 - Unspecified protein-calorie malnutrition Status: Acute Assessment and Plan: Severe protein malnutrition. Patient with continued chronic weight loss 2/2 chronic disease process. Recommend continue supplementation with pulmocare nutritional supplement. Recommended small frequent meals. (4) Hyponatremia: Code(s): E87.1 - Hypo-osmolality and hyponatremia Status: Resolved Assessment and Plan: Sodium 134, stable. (5) Macrocytic anemia: Code(s): D53.9 - Nutritional anemia, unspecified Status: Chronic Assessment and Plan: Chronic, Hgb 11.6, stable without acute s/s of bleeding. B12 and folate within normal limits Secondary to malnutrition and anemia of chronic disease from end-stage COPD (6) Peripheral vascular disease: Code(s): I73.9 - Peripheral vascular disease, unspecified Status: Chronic Assessment and Plan: Chronic, Started on asa 81mg daily and continued lipitor 40 mg at HS. He c/o bilateral lower extremity cramping/pain worse with ambulating,. suggesting claudication. Consider trial of cilostazol for claudication- will defer this to his PCP. (7) Tobacco dependence: Code(s): F17.200 - Nicotine dependence, unspecified, uncomplicated Status: Chronic Assessment and Plan: Current everyday smoker with 61 pack-year history. Recommended to quit smoking and discussed cessation tactics. He does not seem motivated on this. (8) Generalized weakness: Code(s): R53.1 - Weakness Status: Acute Assessment and Plan: Secondary to malnutrition and end-stage COPD. Consulted PT/OT. We discussed short-term rehab in-depth and he is agreeable to this. Care coordination following and assisting. We discussed at length criteria for hospice referral, benefits and general focus of hospice, including symptoms co
[2022-09-12] MEDS: MELATONIN 5 MG TABLET PO (21:15)
[2022-09-12] MEDS: ATORVASTATIN 40 MG TABLET PO (21:15)
[2022-09-13] VITALS (7 sets, daily range): BP systolic 104; BP diastolic 54; PULSE 79–95; RESP 14–20; TEMP 36.6; O2SAT 93–99
[2022-09-13] MEDS: FLUTICASONE/UMECLIDIN/VILANTER 200-62.5-25 MCG ELLIPTA 1 PUFF INHALATION (07:23)
[2022-09-13] MEDS: IPRATROPIUM BR 0.02% INH SOLN 0.5 MG/2.5 ML VIAL INHALATION ×2 (07:23→14:30)
[2022-09-13] MEDS: ALBUTEROL SULFATE NEB 2.5 MG/3 ML INH INHALATION ×2 (07:23→14:30)
--- NOTE | 2022-09-13 09:17 | P.DS_ITS ---
DS: Admitting Diagnosis Discharge Date 09/13/22 Admitting Diagnosis COPD exacerbation DS: Discharge Diagnosis Discharge Diagnosis (1) Acute exacerbation of chronic obstructive pulmonary disease: Code(s): J44.1 - Chronic obstructive pulmonary disease with (acute) exacerbation Status: Acute Assessment and Plan: Severe end stage COPD. He continues to smoke cigarettes. * Treated with IV solumedrol and empiric azithromycin this hospitalization . * He was transitioned to oral prednisone with 2 week taper, maintenance azithromycin, and plans for Trelegy inhaler in preparation for discharge. * Home O2 evaluation showed need for O2 flow rate 2L at rest and 4L with activity/exertion on 09/07/22 * 09/08/22 patient had worsening respiratory complaints. CXR without new infiltrates and essentially unchanged from previous imaging. ABG with worsening hypoxemia, but unchanged hypercapnia. Significant wheezing noted on exam with increased O2 needs up to 6L. He was changed back to IV solumedrol 60 mg Q8 hours, on scheduled duonebs, Trelegy inhaler, and maintenance azithromycin. Lasix IV x1 given per Pulmonology * Systemic steroids and nebs per Pulmonology. Wheezing improving. Transitioned back to prednisone 09/11/22 with slow taper per Pulmonary * Pulmonary DC recommendations- Trelegy inhaler 1 puff daily, duonebs TID PRN, start outpt treatment with Daliresp 500 mcg daily, azithromycin 250 mg 3 times per week, Prednisone 40 mg daily with taper to 10 mg over 3 weeks. * avoid sedating medications. (2) Chronic respiratory failure with hypoxia, on home oxygen therapy: Code(s): J96.11 - Chronic respiratory failure with hypoxia; Z99.81 - Dependence on supplemental oxygen Status: Acute Assessment and Plan: Acute on chronic respiratory failure with hypoxia and hypercapnia. * continue COPD management as above. * He could not tolerate Bipap. * Requiring 4L O2 with exertion, 2-3L at rest. (3) Malnutrition: Qualifiers: Malnutrition type: protein-calorie malnutrition Protein-calorie malnutrition severity: severe Qualified Code(s): E43 - Unspecified severe protein-calorie malnutrition Code(s): E46 - Unspecified protein-calorie malnutrition Status: Acute Assessment and Plan: Severe protein malnutrition. Patient with continued chronic weight loss 2/2 chronic disease process. * Recommend continue supplementation with pulmocare nutritional supplement. * Recommended small frequent meals. (4) Hyponatremia: Code(s): E87.1 - Hypo-osmolality and hyponatremia Status: Resolved Assessment and Plan: Sodium 134, stable. (5) Macrocytic anemia: Code(s): D53.9 - Nutritional anemia, unspecified Status: Chronic Assessment and Plan: Chronic, Hgb 11.6, stable without acute s/s of bleeding. B12 and folate within normal limits Secondary to malnutrition and anemia of chronic disease from end-stage COPD (6) Peripheral vascular disease: Code(s): I73.9 - Peripheral vascular disease, unspecified Status: Chronic Assessment and Plan: Chronic, Started on asa 81mg daily and continued lipitor 40 mg at HS. He c/o bilateral lower extremity cramping/pain worse with ambulating,. suggesting claudication. Consider trial of cilostazol for claudication- will defer this to his PCP. (7) Tobacco dependence: Code(s): F17.200 - Nicotine dependence, unspecified, uncomplicated Status: Chronic Assessment and Plan: Current everyday smoker with 61 pack-year history. * Recommended to quit smoking
[2022-09-13] MEDS: ENOXAPARIN 40 MG/0.4 ML SYRINGE SUB-Q (10:49)
[2022-09-13] MEDS: predniSONE 20 MG TABLET 40 MG PO (10:50)
[2022-09-13] MEDS: ASPIRIN 81 MG ENTERIC TABLET PO (10:50)
[2022-09-13] MEDS: FERROUS SULFATE 324 MG TABLET PO (10:50)
[2022-09-13] MEDS: guaiFENesin 12 HR 600 MG TABCR PO (10:50)
[2022-09-13] MEDS: LORATADINE 10 MG TABLET PO (10:50)
[2022-09-13] MEDS: AZITHROMYCIN 250 MG TABLET PO (10:50)
[2022-09-13 11:26] LABS: Blood Urea Nitrogen 15 mg/dL (9-20); Calcium 7.9 mg/dL (8.4-10.2); Carbon Dioxide > 40 mmol/L (22-30); Chloride 90 mmol/L (98-107); Estimated CRCL calculation 80 ml/min; Estimated Glomerular Filt Rate > 60; Glucose 101 mg/dL (65-110); Potassium 3.4 mmol/L (3.4-5.0); Sodium 133 mmol/L (137-145)
[2022-09-13 11:44] LABS: Hematocrit 40.5 % (42.0-52.0); Hemoglobin 13.3 g/dL (14.0-18.0); Mean Corpuscular HGB Conc 32.8 g/dl (32-36); Mean Corpuscular Volume 109.8 fl (80-100); Mean Platelet Volume 10.7 fl (7.4-10.4); Platelet Count Result 261 k/mm3 (150-375); Red Blood Count 3.69 M/mm3 (4.6-6.20)
== END 2022-09-13 15:40 | disposition home health service (06) | DRG 190 ==
LOC: ANHED 22:33 → ANH2MED 22:55
PROVIDERS: Internal Medicine Pulmonary Disease; Nurse Practitioner Family; Physician Assistant; Admitting Provider Internal Medicine; Emergency Provider Emergency Medicine; PCP Internal Medicine; Visit Provider Internal Medicine Critical Care Medicine
DX: J44.1 Chronic obstructive pulmonary disease with (acute) exacerbation (principal); E43 Unspecified severe protein-calorie malnutrition; J96.21 Acute and chronic respiratory failure with hypoxia; J96.22 Acute and chronic respiratory failure with hypercapnia; Z68.1 Body mass index [BMI] 19.9 or less, adult; E87.1 Hypo-osmolality and hyponatremia; E87.20 Acidosis, unspecified; R64 Cachexia; J31.0 Chronic rhinitis; Z20.822 Contact with and (suspected) exposure to COVID-19; D53.9 Nutritional anemia, unspecified; D63.8 Anemia in other chronic diseases classified elsewhere; I73.9 Peripheral vascular disease, unspecified; F17.210 Nicotine dependence, cigarettes, uncomplicated; G47.00 Insomnia, unspecified; Z99.81 Dependence on supplemental oxygen; Z95.820 Peripheral vascular angioplasty status with implants and grafts; Z66 Do not resuscitate
CPT/HCPCS: 36415; 36600; 71045; 71046; 80048; 80053; 82570; 82607; 82728; 82746; 82805; 83540; 83550; 83605; 83735; 83880; 83930; 83935; 84145; 84238; 84300; 84439; 84443; 84480; 84484; 85025; 85027; 86140; 87040; 87637; 93005; 94640; 94667; 94668; 96365; 96366; 96372; 96375; 96376; 97110; 97161; 97166; 97530; 97535; 99285; A9270; G0378; J0456; J1650; J1940; J2920; J2930; J7512

== ENCOUNTER 2023-03-12 22:06 | Inpatient (IN) | payer MEDICARE, SELFPAY ==
--- NOTE | ~2023-03-12 | XR_ITS ---
EXAMINATION: XR chest 1V portable Exam Date/Time: 03/12/2023 22:35 CDT HISTORY: dyspnea/HX OF COPD Comparison: 09/08/2022, 09/02/2022. RESULT: Lines, tubes, and devices: None. Lungs and pleura: Severe emphysematous change. 9 mm left midlung nodular opacity. No focal consolida tion. No pneumothorax. No effusion. Cardiomediastinal silhouette: Stable. Other: No acute osseous or upper abdominal finding. IMPRESSION: No acute cardiopulmonary process. Severe emphysematous change. Interval development of a 9 mm nodular left midlung opacity, consider outpatient low-dose noncontrast CT of the chest for further character ization. Reviewed, dictated and finalized at location K. IMPRESSION: No acute cardiopulmonary process. Severe emphysematous change. Interval develop ment of a 9 mm nodular left midlung opacity, consider outpatient low-dose nonco ntrast CT of the chest for further characterization.
--- NOTE | ~2023-03-12 | CT_ITS ---
Clinical Indication: Shortness of breath CT Scan of the Chest with Contrast: Technique: Contiguous sections were acquired throughout the chest after intravenous administration of 100 cc of Omnipaque 350. Dose reduction technique was used on this scan by utilizing automated expos ure control and iterative reconstruction technique. The dose-length product (DLP) was 163.17 mGy-cm. Findings: There is no evidence of any significant mediastinal, hilar or axillary lymphadenopathy. There is no f illing defect in the pulmonary arterial tree to suggest pulmonary embolus. There is no evidence of ao rtic dissection or aneurysm. There are atherosclerotic calcifications of the aorta and coronary arter ies. Small left pleural effusion present. No right pleural effusion. No pericardial effusion. There is severe emphysema. There is focal patchy airspace disease and interstitial thickening in the inferolateral left upper lobe. Questionable additional left basilar pneumonia versus left basilar ate lectatic change. Images through the upper abdomen reveal no abnormalities. Impression: No evidence of pulmonary embolus, aortic dissection, or aortic aneurysm. Probable focal left upper lobe pneumonia. Questionable additional left basilar involvement versus lef t basilar atelectatic change. Severe emphysema. Reviewed, dictated and finalized at location . Impression: No evidence of pulmonary embolus, aortic dissection, or aortic aneurysm. Probable focal left upper lobe pneumonia. Questionable additional left basilar involvement versus left basilar atelectatic change. Severe emphysema.
[2023-03-12 22:10] VITALS: PULSE 84; O2SAT 87
[2023-03-12 22:16] VITALS: BP 119/70; PULSE 88; RESP 30; TEMP 36.9; O2SAT 88
--- NOTE | 2023-03-12 22:28 | ECG_ITS ---
Measurements Intervals [place] Rate: 83 P: 89 HI: 137 QRS: 88 QRSD: 81 T: 85 QT: 335 QTc: 394 Interpretive Statements SINUS RHYTHM COMPARED TO ECG 09/02/2022 19:41:51 THE RATE IS SLOWER Electronically Signed On 03-13-2023 14:03:59 CDT by Jennifer Avendano M.D.
--- NOTE | 2023-03-12 22:30 | ED.GENADULT ---
HPI - General Adult General Chief complaint: Shortness of Breath/Dyspnea Stated complaint: Ambulance Time Seen by Provider: 03/12/23 22:18 History of Present Illness HPI narrative: The patient is a 67-year-old male with a history of chronic respiratory failure, severe end-stage COPD on 2 L of oxygen at rest, advised to be on 4 L of oxygen with exertion but he is usually on 2 L of oxygen at all times. Also with hyperlipidemia. He still smokes cigarettes. He was admitted on September 04 until September 13, 2022 at [facility] for severe COPD exacerbation. At discharge, he was placed on a several week taper of steroids and also azithromycin 3 times weekly. He was seen by pulmonary medicine at the time. He is DNR. He has been in his usual state of health until today when he got worsening dyspnea. He has had a cough which is productive of foamy phlegm but mostly is dry. Does have a chronic cough. Shortness of breath has continued today and is increasing. Does have chest congestion. No chest pain or tightness. No abdominal pain. No nausea vomiting. No fevers or chills. EMS was notified. He was transported here for further evaluation. Oxygen saturation 88% on 2 L. Respiratory rate 30. Related Data Home Medications Medication Instructions Recorded Confirmed albuterol sulfate 90 mcg/actuation 2 inh inhalation Q4H PRN SHORTNESS 09/02/22 03/12/23 aerosol inhaler OF BREATH atorvastatin 40 mg tablet 40 mg PO HS 09/02/22 03/12/23 albuterol sulfate 2.5 mg/3 mL 2.5 mg continuous nebulization 03/12/23 03/12/23 (0.083 %) solution for nebulization Q4-6H PRN Shortness Of Breath Or Wheezing gabapentin 600 mg tablet 600 mg PO DAILY 03/12/23 03/12/23 venlafaxine 25 mg tablet 25 mg PO DAILY 03/12/23 03/12/23 Allergies Allergy/AdvReac Type Severity Reaction Status Date / Time procaine [From Novocain] Allergy Other Verified 09/02/22 19:12 Review of Systems Review of Systems: All systems reviewed & are unremarkable except as noted in HPI and below Constitutional: Constitutional: Denies chills, Denies excessive sweating, Reports fatigue ( Chronic), Denies fever(s), Denies headache(s) and Reports weakness ( chronic) Eyes: Eyes: Denies change in vision and Denies photophobia ENT: Denies dysphagia, Denies dizziness, Denies headache(s), Denies lip swelling, Denies nasal congestion, Denies sore throat and Denies tongue swelling Cardiovascular: Cardiovascular: Denies chest pain, Denies syncope, Denies rapid heart rate and Reports dyspnea Respiratory: Respiratory: Reports cough, Reports dyspnea and Denies wheezing Comments: has gurgling sounds in his chest Gastrointestinal: Gastrointestinal: Denies abdominal pain, Denies constipation, Denies dysphagia, Denies diarrhea, Denies nausea and Denies vomiting Genitourinary: Genitourinary: Denies hematuria, Denies dysuria, Denies urinary frequency and Denies urinary urgency Musculoskeletal: Musculoskeletal: Denies back pain, Denies myalgias, Denies arthralgias, Denies joint swelling and Denies numbness Integumentary/Breasts: Skin/Breast: Denies pruritus, Denies erythema and Denies rash Neurologic: Denies confusion, Denies dizziness, Denies syncope, Denies headache(s), Denies focal weakness and Denies numbness Psychiatric: Psychiatric: Denies anxiety and Denies confusion Endocrine: Endocrine: Denies excessive sweating Hematologic/Lymphatic: Hematologic/Lymphatic: Denies easy bleeding and Denies easy bruising Allergic/Immunologic: Allergic/Immunologic: Denies lip swelling and Denies tongue swelling PMFSH Past Medical History Medical History Chronic obstructive pulmonary disease Chronic respiratory failure with hypoxia, on home oxygen therapy Peripheral vascular disease Tobacco dependence Surgical History Surgical History History of intravascular stent placement Bi
[2023-03-12 22:41] VITALS: PULSE 82; RESP 32
[2023-03-12] MEDS: IPRATROPIUM 0.5 MG/ALBUTEROL SULFATE 2.5 MG AMPUL.NEB 3 ML INHALATION (22:41)
[2023-03-12 22:51] VITALS: PULSE 86; RESP 32
[2023-03-12] MEDS: methylPREDNISolone SOD SUCC 125 MG VIAL IV PUSH (22:52)
[2023-03-12] MEDS: MAGNESIUM SULF 2 GM/WATER 50ML 2 GM/50 ML BAG IVPB (22:52)
[2023-03-12 22:54] LABS: Base Excess ABG 15.8 mmol/L (0-2); Oxygen Content ABG 15.4 %vol (16.0-22.0); Oxygen Saturation ABG 96.3 % (95-97); Oxyhemoglobin 93.7 % (94-100); PO2 ABG 94.2 mmHg (75-85); Total Hemoglobin 11.6 g/dL (12.0-18.0); pH ABG 7.27 (7.35-7.45)
[2023-03-12 22:55] VITALS: BP 108/55; PULSE 83; RESP 30; O2SAT 97
[2023-03-12 23:01] LABS: Hematocrit 35.6 % (37.0-46.0); Hemoglobin 11.1 g/dL (12.4-15.3); Immature Platelet Fraction Pct 18.8 % (1.0-7.0); Mean Corpuscular HGB Conc 31.2 g/dL (32.0-36.0); Mean Corpuscular Hemoglobin 37.1 pg (27.0-31.0); Mean Corpuscular Volume 119.1 fL (78.0-102.0); Mean Platelet Volume 12.7 fl (8.7-11.0); Platelet Count Result 130 K/mm3 (150-420); Red Blood Count 2.99 M/mm3 (4.70-6.10); Red Cell Distribution Width 13.2 % (11.6-14.4)
--- NOTE | 2023-03-12 23:01 | PC.NURSE ---
Noted in pt past paperwork and hx from admit at [place] pts. wishes for DNR. No official paperwork noted or found. ERP Dr Kilpatrick discussed DNR c pt and his s.o. Pt signed POLST DNR paperwork, copy on chart.
[2023-03-12] MEDS: cefTRIAXone 2 GM/NS 100 ML 2 GM/100 ML BAG IVPB (23:12)
[2023-03-12 23:14] LABS: White Blood Count 28.4 K/mm3 (4.8-10.8)
[2023-03-12 23:15] LABS: Device SIMPLE MASK; Modified Allen's Test Pass; PCO2 ABG 105.6 mmHg (35-45); Site Drawn RIGHT RADIAL
[2023-03-12 23:23] LABS: Band Neutrophils Percent 0 % (0-6); Basophils Percent Manual 0 % (0-1); Eosinophils Percent Manual 0 % (1-6); Lymphocytes Absolute Manual 0.28 K/mm3 (1.1-4.5); Lymphocytes Percent Manual 1 % (18-44); Monocytes Absolute Manual 1.13 K/mm3 (0.1-0.90); Monocytes Percent Manual 4 % (3-9); Neutrophils Absolute Manual 26.98 K/mm3 (1.3-6.7); Neutrophils Percent Manual 95 % (46-73); Platelet Estimate Adequate (Adequate)
[2023-03-12 23:24] LABS: Lactic Acid Reflex 2.3 mmol/L (0.4-2.0)
[2023-03-12 23:29] LABS: Alanine Aminotransferase 24 U/L (16-63); Alkaline Phosphatase 83 U/L (46-116); Aspartate Amino Transferase 20 U/L (15-37); Bilirubin,Total 0.8 mg/dL (0.00-1.00); Blood Urea Nitrogen 16 mg/dL (7-18); CRP 4.7 mg/dL (0.0-0.9); Calcium 8.8 mg/dL (8.5-10.1); Chloride 92 mmol/L (98-108); Estimated CRCL calculation 60 ml/min; Estimated Glomerular Filt Rate > 60; Glucose 143 mg/dL (70-99); Magnesium 2.1 mg/dL (1.8-2.4); NT Pro B Type Natriuretic Pept 1001 pg/mL (0-125); Osmolality Calculated 287 mOsm/kg (285-295); Potassium 4.7 mmol/L (3.5-5.1); Sodium 137 mmol/L (136-145)
[2023-03-12 23:30] LABS: Carbon Dioxide > 45 mmol/L (21-32)
[2023-03-12 23:31] LABS: D Dimer 1.33 mg/L (0.19-0.50)
[2023-03-12] MEDS: DOXYCYCLINE IV 100 MG in DEXTROSE 5% 100 ML IVPB (23:37)
[2023-03-12 23:48] VITALS: BP 136/93; PULSE 82; RESP 26; O2SAT 92
[2023-03-12 23:48] LABS: Influenza A QL RT-PCR Negative (Negative); Influenza B QL RT-PCR Negative (Negative); RSV RNA, RT-PCR Negative (Negative); SARS-CoV-2 RNA PCR Negative (Negative)
--- NOTE | 2023-03-12 23:49 | PC.NURSE ---
Discussed POC c pt and his s.o., Dr Kilpatrick spoke to HELP DESK CONSULTANT Crystal and orders obtained for admission.
[2023-03-13] VITALS (35 sets, daily range): BP systolic 92–120; BP diastolic 56–70; PULSE 70–90; RESP 18–28; TEMP 36.1–36.6; O2SAT 83–100; BMI 12.9
[2023-03-13 00:10] LABS: Erythrocyte Sedimentation Rate 47 mm/hr (0-20)
--- NOTE | 2023-03-13 00:50 | ADMGEN ---
This patient, Wagner Cronin, was admitted to 2nd Floor Room 204-1. Patient/family oriented to hospital policies and general routines including ID bracelet, bed and alarms, visiting hours, pain management, procedures, bathroom and other care routines, personal items, smoking policy, room service/diet, and visiting hours. Information on how to activate the Rapid Response Team has been discussed. Patient/Family are encouraged to report perceived risks to care and to ask questions if they do not understand what they are told or what they should do.
[2023-03-13] MEDS: IPRATROPIUM 0.5 MG/ALBUTEROL SULFATE 2.5 MG AMPUL.NEB 3 ML INHALATION ×5 (01:25→23:14)
[2023-03-13] MEDS: methylPREDNISolone SOD SUCC 40 MG VIAL IV PUSH ×3 (05:19→20:59)
[2023-03-13 08:52] LABS: HCO3 VBG 51.3 mEq/l (24.0-30.0); PO2 VBG 30.5 mmHg (35.0-45.0); pH VBG 7.24 (7.33-7.43)
[2023-03-13 08:54] LABS: Hematocrit 34.9 % (37.0-46.0); Hemoglobin 10.8 g/dL (12.4-15.3); Mean Corpuscular HGB Conc 30.9 g/dL (32.0-36.0); Mean Corpuscular Hemoglobin 36.7 pg (27.0-31.0); Mean Corpuscular Volume 118.7 fL (78.0-102.0); Mean Platelet Volume 12.7 fl (8.7-11.0); Platelet Count Result 111 K/mm3 (150-420); Red Blood Count 2.94 M/mm3 (4.70-6.10); Red Cell Distribution Width 13.2 % (11.6-14.4)
[2023-03-13] MEDS: GABAPENTIN 300 MG CAPSULE 600 MG PO (08:57)
[2023-03-13] MEDS: ASPIRIN 81 MG ENTERIC TABLET PO (08:57)
[2023-03-13] MEDS: VENLAFAXINE HCL 25 MG TABLET PO (08:58)
[2023-03-13 09:00] LABS: White Blood Count 25.1 K/mm3 (4.8-10.8)
[2023-03-13] MEDS: DOXYCYCLINE IV 100 MG in DEXTROSE 5% 100 ML IVPB ×2 (09:00→20:59)
[2023-03-13 09:07] LABS: PCO2 VBG 121.6 mmHg (42.0-48.0)
[2023-03-13 09:10] LABS: Alanine Aminotransferase 19 U/L (16-63); Albumin Level 2.9 g/dL (3.4-5.0); Alkaline Phosphatase 80 U/L (46-116); Aspartate Amino Transferase 19 U/L (15-37); Bilirubin,Total 0.3 mg/dL (0.00-1.00); Blood Urea Nitrogen 13 mg/dL (7-18); Chloride 93 mmol/L (98-108); Estimated CRCL calculation 74 ml/min; Estimated Glomerular Filt Rate > 60; Glucose 123 mg/dL (70-99); Osmolality Calculated 285 mOsm/kg (285-295); Potassium 4.4 mmol/L (3.5-5.1); Sodium 137 mmol/L (136-145)
[2023-03-13 09:11] LABS: Band Neutrophils Percent 7 % (0-6); Basophils Percent Manual 0 % (0-1); Eosinophils Percent Manual 0 % (1-6); Lymphocytes Absolute Manual 0.75 K/mm3 (1.1-4.5); Lymphocytes Percent Manual 3 % (18-44); Metamyelocytes Percent 1 %; Monocytes Percent Manual 0 % (3-9); Neutrophils Absolute Manual 24.09 K/mm3 (1.3-6.7); Neutrophils Percent Manual 89 % (46-73); Total Cells Counted 100
[2023-03-13 09:15] LABS: Lactic Acid Reflex 1.1 mmol/L (0.4-2.0)
[2023-03-13 09:18] LABS: Carbon Dioxide > 45 mmol/L (21-32)
[2023-03-13 09:35] LABS: Magnesium 2.6 mg/dL (1.8-2.4); Troponin I 7.1 ng/L (0.00-60.4)
--- NOTE | 2023-03-13 10:28 | PM.IMHP ---
H&P: HPI History of Present Illness Date/Time: 03/13/23 10:00 Chief Complaint: Shortness of breath Narrative: Mr. Cronin is a 59-year-old gentleman who presented emergency room with complaints of increasing shortness of breath. Patient has a very well known history of severe end-stage COPD and does wear oxygen at 2 L per nasal cannula at home. Patient states that he has chronic shortness breath but over the last 2-3 days it has progressively worsened and then yesterday he felt like he could not catch his breath and he had something caught in his throat and decided come to the emergency room for further evaluation. patient states that he does have a chronic cough, but he feels that has been mildly worse over the last few days. Patient states that the cough is typically dry, but there has been scant sputum production of white foamy sputum. Patient denies any fever or chills. Patient states that when he became increasingly short of breath he did try using his nebulizer more often, without any results. Patient states he has been taking all of his home medications without any difficulty. Patient denies having been on oral steroids recently and states the last time he can recall he was on steroids was after his last hospitalization at the end of August beginning of September. Patient states he does wear oxygen at home at 2 L per nasal cannula and if he becomes severely short of breath he will trend up to 3 L per nasal cannula. Patient denies any chest pain, lightheadedness, dizziness, syncopal, or near syncopal episodes. Patient states that he did refuse BiPAP in the emergency room because he does not want to be on a BiPAP for a long period of time because he does not tolerate it. Patient states he is a do not resuscitate and does not want to have CPR or intubation. Upon evaluation emergency room patient was noted to have an oxygen saturation of 88% on 2 L of oxygen per nasal cannula and a respiratory rate of 30 respirations per minute. Patient was given a DuoNeb treatment, IV Solu-Medrol, and magnesium for COPD exacerbation. Patient was started on IV doxycycline and Rocephin. Previously patient had been on azithromycin orally 3 times weekly at home.Patient was noted to have a significant leukocytosis with neutrophilia and no bandemia. Patient's ABGs also showed a respiratory acidosis, with a pH of 7.27, a pCO2 of 105.6, AP a O2 at 94.2, and a bicarbonate level of 47. At bedtime it was discussed in depth with patient the possibility of BiPAP and he adamantly refused BiPAP. Patient has a known history of severe end-stage COPD, chronic hypoxic and hypercapnic respiratory failure, peripheral vascular disease with intravascular stent placement to bilateral lower extremities, and tobacco abuse. Review of Systems Review of Systems: A 12 point review of systems was completed with patient all pertinent positive and negative per HPI the remainder are unremarkable. [facility] Past Medical History Medical History (Updated 03/13/23 @ 16:02 by Janene Blakely APRN) Chronic obstructive pulmonary disease Chronic respiratory failure with hypoxia and hypercapnia Peripheral vascular disease Tobacco dependence Surgical History Surgical History History of intravascular stent placement Bilateral lower extremities. History of sinus surgery Family History Family History Other Heart disease Hypertension Social History Social History Social History: Surrogate medical decision maker: Sherron Lr, significant other. Code status: Full code. Smoking packs per day: 1 Smoking cigarettes per day: 20.0 Years smoked: 56 Smoking pack-years: 56.00 Smoking status: Current every day smoker Tobacco type: cigarettes Second hand tobacco smoke exposure: Yes Additional smoking assess
[2023-03-13 10:34] LABS: Device NASAL CANNULA
[2023-03-13] MEDS: LORazepam INJ (*CRX) 2 MG/ML VIAL 0.5 MG IV PUSH ×2 (11:13→14:28)
[2023-03-13 12:51] LABS: Base Excess ABG 22.9 mmol/L (0-2); Carboxyhemoglobin 0.8 % (0-1.5); HCO3 ABG 53.4 mmol/L (23-29); Methemoglobin ABG 0.2 % (0-1.5); Oxygen Content ABG 13.8 %vol (16.0-22.0); Oxygen Saturation ABG 92.5 % (95-97); Oxyhemoglobin 91.6 % (94-100); PO2 ABG 67.6 mmHg (75-85); Reduced Hemoglobin 7.4 % (0-1.5); Total Hemoglobin 10.7 g/dL (12.0-18.0); pH ABG 7.33 (7.35-7.45)
[2023-03-13 12:53] LABS: PCO2 ABG 103.6 mmHg (35-45)
[2023-03-13 12:54] LABS: Device BIPAP; Fractional Inspired Oxygen 48 %; Modified Allen's Test Pass; Site Drawn RIGHT RADIAL
[2023-03-13 12:56] LABS: Expiratory Pressure 5 cmH2O; Inspiratory Pressure 12 cmH2O
--- NOTE | 2023-03-13 13:11 | PC.NURSE ---
Spent most of morning struggle to breathe. c/o of being wore out. pleasant but wore out. lungs are very diminished. no air movement in any field. spo2 on 5l per nc ranges from 82-88%. did not want bi pap this am. labs were drawn and critical abg. operations controller has talked with him and girlfriend . he agrees to bipap. 0.5mg ativan given to help him tolerate it. dozes in and out. spo2 with bipap is 94-100%, follow up abg is somewhat better. tolerating bipap. sleeps. girlfriend at bedside.
[2023-03-13] MEDS: SODIUM CHLORIDE 0.9% IV 1,000 ML 100 ML IV CONT (17:06)
[2023-03-13 17:36] LABS: Base Excess ABG 19.5 mmol/L (0-2); Carboxyhemoglobin 0.3 % (0-1.5); HCO3 ABG 50.5 mmol/L (23-29); Methemoglobin ABG 0.4 % (0-1.5); Oxygen Content ABG 14.3 %vol (16.0-22.0); Oxygen Saturation ABG 96.9 % (95-97); Oxyhemoglobin 96.2 % (94-100); PO2 ABG 96.5 mmHg (75-85); Reduced Hemoglobin 3.1 % (0-1.5); Total Hemoglobin 10.5 g/dL (12.0-18.0); pH ABG 7.27 (7.35-7.45)
[2023-03-13 17:39] LABS: Device BIPAP; Modified Allen's Test Pass; PCO2 ABG 111.4 mmHg (35-45); Site Drawn RIGHT RADIAL
[2023-03-13 17:40] LABS: Expiratory Pressure 6 cmH2O; Inspiratory Pressure 14 cmH2O
--- NOTE | 2023-03-13 18:05 | PC.NURSE ---
RT is here to change pt over to hi flow from bi awais, rikki interventional technologist notified of hc lab values by charge nurse, patient's significant other has gone home to feed the dogs but will return, no output at this time
[2023-03-13] MEDS: SODIUM CHLORIDE 0.9% IV 500 ML IV CONT (21:46)
[2023-03-13] MEDS: cefTRIAXone 2 GM/NS 100 ML 2 GM/100 ML BAG IVPB (22:10)
[2023-03-14] VITALS (21 sets, daily range): BP systolic 109–119; BP diastolic 51–58; PULSE 78–101; RESP 18–24; TEMP 36.4–36.6; O2SAT 87–99
--- NOTE | 2023-03-14 02:00 | PC.NURSE ---
Paez attempted, catheter would not advance past an inch or two. Patient was incontinent of urine.
--- NOTE | 2023-03-14 03:16 | PC.NURSE ---
Respiratory therapy notified of pt's low SAO2 of 81%; Adjustments made to finger probe.
[2023-03-14] MEDS: SODIUM CHLORIDE 0.9% IV 1,000 ML 100 ML IV CONT ×3 (04:15→23:55)
[2023-03-14] MEDS: IPRATROPIUM 0.5 MG/ALBUTEROL SULFATE 2.5 MG AMPUL.NEB 3 ML INHALATION ×3 (04:51→17:02)
[2023-03-14 05:20] LABS: Base Excess ABG 16.4 mmol/L (0-2); HCO3 ABG 44.6 mmol/L (23-29); Oxygen Content ABG 12.9 %vol (16.0-22.0); Oxygen Saturation ABG 89.8 % (95-97); Oxyhemoglobin 89.1 % (94-100); Total Hemoglobin 10.3 g/dL (12.0-18.0); pH ABG 7.37 (7.35-7.45)
[2023-03-14 05:22] LABS: Hematocrit 26.9 % (37.0-46.0); Hemoglobin 8.3 g/dL (12.4-15.3); Immature Granulocyte Absolute 0.08 K/mm3 (0.00-0.00); Immature Granulocyte Percent A 0.9 % (0.0-0.0); Lymphocytes Absolute Auto 0.46 K/mm3 (1.10-4.50); Lymphocytes Percent Auto 5.5 % (18.0-42.0); Mean Corpuscular HGB Conc 30.9 g/dL (32.0-36.0); Mean Corpuscular Hemoglobin 36.4 pg (27.0-31.0); Mean Platelet Volume 12.8 fl (8.7-11.0); Monocytes Absolute Auto 0.51 K/mm3 (0.10-0.90); Neutrophils Absolute Auto 7.4 K/mm3 (1.7-7.2); Neutrophils Percent Auto 87.6 % (50.0-70.0); Nucleated Red Blood Cells Absolute Auto 0.02 K/mm3 (0.00-0.00); Nucleated Red Blood Cells Perc 0.2 % (0-0.0); Platelet Count Result 105 K/mm3 (150-420); Red Blood Count 2.28 M/mm3 (4.70-6.10); Red Cell Distribution Width 13.2 % (11.6-14.4); White Blood Count 8.4 K/mm3 (4.8-10.8)
[2023-03-14 05:29] LABS: Anion Gap -5 mmol/L (8-16); Blood Urea Nitrogen 15 mg/dL (7-18); Calcium 8.3 mg/dL (8.5-10.1); Carbon Dioxide 45 mmol/L (21-32); Chloride 97 mmol/L (98-108); Estimated CRCL calculation 74 ml/min; Estimated Glomerular Filt Rate > 60; Glucose 96 mg/dL (70-99); Osmolality Calculated 284 mOsm/kg (285-295); Potassium 4.8 mmol/L (3.5-5.1); Sodium 137 mmol/L (136-145)
[2023-03-14 05:36] LABS: Modified Allen's Test Pass; Site Drawn LEFT RADIAL
[2023-03-14 05:37] LABS: Device HIGH FLOW NASAL CANN
[2023-03-14 05:38] LABS: PCO2 ABG 78.8 mmHg (35-45)
[2023-03-14] MEDS: methylPREDNISolone SOD SUCC 40 MG VIAL IV PUSH ×3 (05:56→20:39)
--- NOTE | 2023-03-14 06:00 | PC.NURSE ---
Pt given methylprednisolone 40 mg IVP as ordered.
--- NOTE | 2023-03-14 06:13 | PC.NURSE ---
Paez catheter attempted with #16 but unsuccessful; #12 was inserted with immediate return 200 ml of clear, yellow urine. Pt tolerated procedure well.
[2023-03-14] MEDS: ENOXAPARIN 40 MG/0.4 ML SYRINGE SUB-Q (09:22)
[2023-03-14] MEDS: VENLAFAXINE HCL 25 MG TABLET PO (09:22)
[2023-03-14] MEDS: GABAPENTIN 300 MG CAPSULE 600 MG PO (09:22)
[2023-03-14] MEDS: DOXYCYCLINE IV 100 MG in DEXTROSE 5% 100 ML IVPB ×2 (09:23→20:39)
[2023-03-14] MEDS: ASPIRIN 81 MG ENTERIC TABLET PO (09:23)
--- NOTE | 2023-03-14 10:59 | PM.IMPN ---
Progress Note: A&P Assessment and Plan (1) Acute and chronic respiratory failure with hypercapnia: Code(s): J96.22 - Acute and chronic respiratory failure with hypercapnia Status: Acute (2) Pneumonia: Code(s): J18.9 - Pneumonia, unspecified organism Status: Acute (3) Malnutrition: Qualifiers: Malnutrition type: protein-calorie malnutrition Protein-calorie malnutrition severity: severe Qualified Code(s): E43 - Unspecified severe protein-calorie malnutrition Code(s): E46 - Unspecified protein-calorie malnutrition Status: Acute (4) Tobacco dependence: Code(s): F17.200 - Nicotine dependence, unspecified, uncomplicated Status: Chronic Plan A/P 1. Acute on chronic respiratory failure with hypercapnia and hypoxia-patient was no longer tolerating BiPAP overnight and was placed on high-flow oxygen. High-flow oxygen has been titrated between 40-50 L of flow depending on patient's saturation. Oxygen is being titrated to keep saturations between 88-92%. Patient's ABG this morning does show improvement in his CO2 but he does remain hypercarbic at 78.8. Patient's pH has normalized. Will attempt to wean high-flow oxygen as saturations will allow. Patient is more confused today than he was yesterday and will need to follow ABGs to continue to evaluate PCO 2 content. There has been a lengthy discussion with patient's brother, son, and [id number] regarding patient's guarded prognosis. Discussed that at this time patient is refusing intubation, BiPAP, or any invasive procedures and he he wants to remain a DNR/DNI. Explained that if patient does not want any extensive measures as in noninvasive oxygenation with BiPAP that he may have to be placed on comfort measures only. Patient's family states that they will consider this but would like to continue to see progression of patient over the next few days. Explained this is extremely reasonable and will continue with antibiotics and titrating oxygen as saturations and PC O2 will allow. Patient's brother states that who agrees that patient would most likely benefit from hospice and comfort measures, but he would like to continue treatment of pneumonia at this time. Patient has had increased confusion overnight and Ativan was discontinued yesterday at 1825 with last dose being administered at 14:28 on 03/13/2023. Patient's family feel that patient's confusion is secondary to Ativan and gabapentin. Patient's family states the patient was not taking gabapentin daily at home and was only taking at 2-3 times weekly. Will avoid any further narcotics or benzodiazepines and continue to evaluate patient's orientation status closely. Did discuss that hypoxia and/or hypercapnia can cause confusion and this will also need be monitored closely. 2. ? Pneumonia- patient's CT scan did show left upper lobe pneumonia and patient had a significant leukocytosis on admission.? Today patient's white blood cell count is 8.4 with a mild elevation in neutrophils and no bands noted.? Patient remains on doxycycline and ceftriaxone.? Patient had been on azithromycin 250 mg PO 3 times weekly at home and after discussion with Infectious Disease pharmacist it was thought the patient would have no extra benefit from azithromycin, especially since his leukocytosis has resolved.? Since patient has had improvement in his leukocytosis will continue with current regimen. Urine for Legionella and pneumococcal has been obtained and is pending at this time.? Patient has not been able to produce any sputum for a sputum culture. 3.? Malnutrition- patient is severely cachectic and malnourished.? 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 Patient is on a regular diet and has been encouraged to eat what ever he would like. Did discuss with patient's family that they can bring in food from home or anything patient is requesting.? 4.? Tobacco abuse -patient states he has smoked a minimu
[2023-03-14] MEDS: NICOTINE (*PBKC) 21 MG PATCH 1 PATCH TRANSDERM (12:38)
--- NOTE | 2023-03-14 13:03 | PC.NURSE ---
c/o wanting to smoke off and on this day. claims he feels better but still hard to breathe. sponge bath given and new linens. salter patient with gisela urine. does not like water. family brought in coke for him. has been taking sips off and on. can get restless at times. is alert to self. knows the year (2022) but thinks its early spring(december). encouraged to keep off back as much as possible. protective drg applied to reddned coccyx. has brother and girlfriend in and out.
[2023-03-14 14:53] LABS: Base Excess ABG 13.2 mmol/L (0-2); HCO3 ABG 43.8 mmol/L (23-29); Oxygen Content ABG 13.5 %vol (16.0-22.0); Oxygen Saturation ABG 94.9 % (95-97); Oxyhemoglobin 94.1 % (94-100); PO2 ABG 87.4 mmHg (75-85); Total Hemoglobin 10.1 g/dL (12.0-18.0); pH ABG 7.24 (7.35-7.45)
[2023-03-14 14:55] LABS: Modified Allen's Test Pass; PCO2 ABG 105.4 mmHg (35-45); Site Drawn RIGHT RADIAL
[2023-03-14 14:57] LABS: Device HIGH FLOW NASAL CANN
--- NOTE | 2023-03-14 16:20 | PC.NURSE ---
At times he is restless, reaching out for something, mumbles out loud. at times you can understand him but most you can not. will not open eyes when he talks/mumbles at this time. turn and reposition him. joie has gisela urine. girlfriend at bedside. sand caster and social services manager talk to girlfriend in of changes in labs and o2 needs. they also call brother.
--- NOTE | 2023-03-14 17:45 | PM.EVENT ---
Event Note Event Note Event Note: Patient has become increasingly more confused throughout the day and ABG was performed to evaluate patient's pCO2. It was noted the patient's pCO2 has significantly gone up and notified patient is brother and was going to call patient's son. Patient's brother stated that he is the patient's medical power of patent prosecution attorney and that he would, to the hospital and we could call the patient's son together. Patient's brother did bring paperwork stating that he is the patient's medical power of patent prosecution attorney. After a lengthy discussion it was decided that patient would be kept on high-flow oxygen tonight and laboratories would be drawn in the morning to evaluate patient's status. It was also discussed that since patient is confused and having hallucinations at times that medication would be available to keep him comfortable. Did discuss in depth with patient's son that the patient is now becoming confused with his elevated pCO2 and that there is obesity chance the patient could pass away tonight. Patient's son verbalized understanding and stated that his father did not want any her road measures taken such as CPR intubation and that patient refuses BiPAP so that if patient were to pass away tonight the family is aware this could occur and is understanding. Patient's son states he will be her 1st thing in the morning to see his father and at that time a decision will be made if patient is to be comfort measures only. At this time patient does remain a DNR/DNI and no noninvasive ventilation is to be provided such as BiPAP or CPAP. Morphine 1 mg every 4 hours p.r.n. for dyspnea or air hunger has been ordered, as well as Ativan 0.5 mg IV p.r.n. for any anxiety.
[2023-03-14] MEDS: MORPHINE SULFATE (*CRX) 2 MG/ML INJ 1 MG IV PUSH (18:11)
--- NOTE | 2023-03-14 19:17 | PC.NURSE ---
patient was very restless and legs up in in and grabbing at things in air. prn given. see mar.
[2023-03-14] MEDS: cefTRIAXone 2 GM/NS 100 ML 2 GM/100 ML BAG IVPB (21:40)
[2023-03-15] VITALS (23 sets, daily range): BP systolic 101–114; BP diastolic 50–59; PULSE 74–100; RESP 19–36; TEMP 36.6–36.8; O2SAT 88–100
[2023-03-15] MEDS: IPRATROPIUM 0.5 MG/ALBUTEROL SULFATE 2.5 MG AMPUL.NEB 3 ML INHALATION ×5 (01:58→23:47)
[2023-03-15 05:39] LABS: Base Excess ABG 17.9 mmol/L (0-2); HCO3 ABG 46.9 mmol/L (23-29); Oxygen Content ABG 12.5 %vol (16.0-22.0); Oxygen Saturation ABG 88.8 % (95-97); Oxyhemoglobin 88.4 % (94-100); PO2 ABG 57.7 mmHg (75-85); pH ABG 7.34 (7.35-7.45)
--- NOTE | 2023-03-15 05:40 | PC.NURSE ---
Lab called to report critical PCO2 of 89.4 .
[2023-03-15 05:41] LABS: PCO2 ABG 89.4 mmHg (35-45)
[2023-03-15 05:42] LABS: Basophils Absolute Auto 0.02 K/mm3 (0.00-0.10); Basophils Percent Auto 0.2 % (0.0-1.0); Device HIGH FLOW NASAL CANN; Hematocrit 30.3 % (37.0-46.0); Hemoglobin 9.2 g/dL (12.4-15.3); Immature Granulocyte Absolute 0.08 K/mm3 (0.00-0.00); Immature Granulocyte Percent A 0.7 % (0.0-0.0); Lymphocytes Percent Auto 4.2 % (18.0-42.0); Mean Corpuscular HGB Conc 30.4 g/dL (32.0-36.0); Mean Corpuscular Hemoglobin 35.9 pg (27.0-31.0); Mean Corpuscular Volume 118.4 fL (78.0-102.0); Mean Platelet Volume 12.4 fl (8.7-11.0); Modified Allen's Test Pass; Monocytes Absolute Auto 0.99 K/mm3 (0.10-0.90); Monocytes Percent Auto 8.3 % (2.0-11.0); Neutrophils Absolute Auto 10.3 K/mm3 (1.7-7.2); Neutrophils Percent Auto 86.6 % (50.0-70.0); Platelet Count Result 123 K/mm3 (150-420); Red Blood Count 2.56 M/mm3 (4.70-6.10); Red Cell Distribution Width 13.2 % (11.6-14.4); Site Drawn LEFT RADIAL; White Blood Count 11.9 K/mm3 (4.8-10.8)
[2023-03-15 05:52] LABS: Anion Gap -1 mmol/L (8-16); Blood Urea Nitrogen 15 mg/dL (7-18); Calcium 8.7 mg/dL (8.5-10.1); Carbon Dioxide 39 mmol/L (21-32); Chloride 96 mmol/L (98-108); Estimated CRCL calculation 100 ml/min; Estimated Glomerular Filt Rate > 60; Glucose 91 mg/dL (70-99); Osmolality Calculated 278 mOsm/kg (285-295); Potassium 4.9 mmol/L (3.5-5.1); Sodium 134 mmol/L (136-145)
--- NOTE | 2023-03-15 06:20 | PC.NURSE ---
Pt's brother, Sherman, who is the POA gave his phone number to this RN. [phone]
[2023-03-15] MEDS: ENOXAPARIN 40 MG/0.4 ML SYRINGE SUB-Q (09:08)
[2023-03-15] MEDS: methylPREDNISolone SOD SUCC 40 MG VIAL IV PUSH ×2 (09:09→20:40)
[2023-03-15] MEDS: DOXYCYCLINE IV 100 MG in DEXTROSE 5% 100 ML IVPB ×2 (09:09→20:41)
[2023-03-15] MEDS: NICOTINE (*PBKC) 21 MG PATCH 1 PATCH TRANSDERM (09:09)
[2023-03-15] MEDS: ASPIRIN 81 MG ENTERIC TABLET PO (09:09)
--- NOTE | 2023-03-15 09:11 | PM.IMPN ---
Progress Note: A&P Assessment and Plan (1) Acute and chronic respiratory failure with hypercapnia: Code(s): J96.22 - Acute and chronic respiratory failure with hypercapnia Status: Acute (2) Pneumonia: Code(s): J18.9 - Pneumonia, unspecified organism Status: Acute (3) Malnutrition: Qualifiers: Malnutrition type: protein-calorie malnutrition Protein-calorie malnutrition severity: severe Qualified Code(s): E43 - Unspecified severe protein-calorie malnutrition Code(s): E46 - Unspecified protein-calorie malnutrition Status: Acute (4) Tobacco dependence: Code(s): F17.200 - Nicotine dependence, unspecified, uncomplicated Status: Chronic Plan A/P 1. Acute on chronic respiratory failure with hypercapnia and hypoxia- Patient remains on high-flow oxygen and is having improvement in his mentation today. Patient is PCO2 to this morning was 89.4. Put very specific parameters on titration of oxygen. Patient's FiO2 was not be taking above 30%, because when this is titrated up patient's pCO2 also goes. The L flow on high-flow oxygen can be adjusted. Also discussed in depth with staff that O2 saturations are to be kept between 88-92%. Explained that if patient saturations are in the high 90s he starts retaining CO2. have had multiple discussions with the family regarding starting to develop a plan of care for patient. There will be a family meeting today and approximately 10:00 to discussed plan with patient and family. At this point time patient is requiring high-flow oxygen and this is unavailable at home. 2. ? Pneumonia- patient's CT scan did show left upper lobe pneumonia and patient had a significant leukocytosis on admission.? Today patient's white blood cell count had decreased to 8.4 with a mild elevation in neutrophils and no bands noted as of yesterday, but today there was a mild increase in patient's white blood cells to 11.9, but a decrease in the number of neutrophils.? There was also an increase in patient's hemoglobin and hematocrit and since patient is not eating or drinking this could be secondary to dehydration, will increase IV fluids and monitor. Patient remains on doxycycline and ceftriaxone.? Patient had been on azithromycin 250 mg PO 3 times weekly at home and after discussion with Infectious Disease pharmacist it was thought the patient would have no extra benefit from azithromycin, especially since his leukocytosis has resolved.? Since patient has had improvement in his leukocytosis will continue with current regimen. Urine for Legionella and pneumococcal has been obtained and is pending at this time.? Patient has not been able to produce any sputum for a sputum culture. 3.? Malnutrition- Patient is severely cachectic and malnourished.? 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 Patient is on a regular diet and has been encouraged to eat what ever he would like. Did discuss with patient's family that they can bring in food from home or anything patient is requesting.? 4.? Tobacco abuse -Patient states he has smoked a minimum of 1 pack of cigarettes a day for the last 58 years.? Patient does have a nicotine patch in place. VTE:? Patient will be placed on subcutaneous Lovenox daily for from pharmacological VTE prophylaxis Dispo: Patient requires inpatient monitoring with expected length of stay to exceed 2 midnights for management of care. Code Status: DNR/DNI-patient is refusing BiPAP. Subjective Date/time seen: 03/15/23 0850 Interval history: Patient sitting up in bed and mentation has significantly improved this morning. Patient states that the only thing he is hungry for is whole milk or a glazed doughnut. Did briefly discuss with patient his wishes. Patient states that his whole family will be here at approximately 09:30 to 10:00 o'clock and that we can review all options and further decisions can be made. patient states he does feel extremely
[2023-03-15] MEDS: BUDESONIDE RESPULE NEB 0.5 MG/2 ML AMP INHALATION ×2 (09:25→18:46)
[2023-03-15] MEDS: SODIUM CHLORIDE 0.9% IV 1,000 ML 125 ML IV CONT ×2 (11:09→19:26)
[2023-03-15] MEDS: VENLAFAXINE HCL 25 MG TABLET PO (11:35)
[2023-03-15] MEDS: ONDANSETRON INJ 4 MG/2 ML VIAL IV PUSH (19:59)
[2023-03-15] MEDS: ATORVASTATIN 40 MG TABLET PO (20:41)
[2023-03-15] MEDS: cefTRIAXone 2 GM/NS 100 ML 2 GM/100 ML BAG IVPB (21:45)
[2023-03-16] VITALS (20 sets, daily range): BP systolic 104; BP diastolic 54; PULSE 77–92; RESP 15–26; TEMP 36.2; O2SAT 80–96
[2023-03-16] MEDS: SODIUM CHLORIDE 0.9% IV 1,000 ML 125 ML IV CONT ×3 (04:48→20:15)
[2023-03-16] MEDS: BUDESONIDE RESPULE NEB 0.5 MG/2 ML AMP INHALATION ×2 (05:11→18:36)
[2023-03-16] MEDS: IPRATROPIUM 0.5 MG/ALBUTEROL SULFATE 2.5 MG AMPUL.NEB 3 ML INHALATION ×3 (05:12→23:24)
[2023-03-16 05:25] LABS: Base Excess ABG 13.4 mmol/L (0-2); HCO3 ABG 45.8 mmol/L (23-29); Oxygen Content ABG 12.5 %vol (16.0-22.0); Oxygen Saturation ABG 79.8 % (95-97); Oxyhemoglobin 79.2 % (94-100); PO2 ABG 50.5 mmHg (75-85); Total Hemoglobin 11.2 g/dL (12.0-18.0); pH ABG 7.19 (7.35-7.45)
[2023-03-16 05:28] LABS: Basophils Absolute Auto 0.01 K/mm3 (0.00-0.10); Basophils Percent Auto 0.1 % (0.0-1.0); Hematocrit 34.6 % (37.0-46.0); Hemoglobin 10.5 g/dL (12.4-15.3); Immature Granulocyte Absolute 0.11 K/mm3 (0.00-0.00); Immature Granulocyte Percent A 1.5 % (0.0-0.0); Lymphocytes Absolute Auto 0.37 K/mm3 (1.10-4.50); Lymphocytes Percent Auto 5.2 % (18.0-42.0); Mean Corpuscular HGB Conc 30.3 g/dL (32.0-36.0); Mean Corpuscular Hemoglobin 36.5 pg (27.0-31.0); Mean Corpuscular Volume 120.1 fL (78.0-102.0); Monocytes Absolute Auto 0.36 K/mm3 (0.10-0.90); Monocytes Percent Auto 5.1 % (2.0-11.0); Neutrophils Absolute Auto 6.3 K/mm3 (1.7-7.2); Neutrophils Percent Auto 88.1 % (50.0-70.0); Nucleated Red Blood Cells Absolute Auto 0.02 K/mm3 (0.00-0.00); Nucleated Red Blood Cells Perc 0.3 % (0-0.0); Platelet Count Result 126 K/mm3 (150-420); Red Blood Count 2.88 M/mm3 (4.70-6.10); Red Cell Distribution Width 13.2 % (11.6-14.4); White Blood Count 7.1 K/mm3 (4.8-10.8)
[2023-03-16 05:32] LABS: Fractional Inspired Oxygen 35 %; Modified Allen's Test Pass; Site Drawn LEFT RADIAL
[2023-03-16 05:33] LABS: Device HIGH FLOW NASAL CANN
[2023-03-16 05:39] LABS: Immature Platelet Fraction Pct 16.4 % (1.0-7.0)
[2023-03-16 05:44] LABS: Anion Gap -4 mmol/L (8-16); Blood Urea Nitrogen 16 mg/dL (7-18); Calcium 8.7 mg/dL (8.5-10.1); Carbon Dioxide 42 mmol/L (21-32); Chloride 98 mmol/L (98-108); Estimated CRCL calculation 79 ml/min; Estimated Glomerular Filt Rate > 60; Glucose 118 mg/dL (70-99); Osmolality Calculated 284 mOsm/kg (285-295); Potassium 4.7 mmol/L (3.5-5.1); Sodium 136 mmol/L (136-145)
--- NOTE | 2023-03-16 08:40 | PC.NURSE ---
correction respiratory assesment pulse is 79 not 35. RO
[2023-03-16] MEDS: DOXYCYCLINE IV 100 MG in DEXTROSE 5% 100 ML IVPB (09:10)
[2023-03-16] MEDS: methylPREDNISolone SOD SUCC 40 MG VIAL IV PUSH ×2 (09:21→20:16)
[2023-03-16] MEDS: VENLAFAXINE HCL 25 MG TABLET PO (09:22)
[2023-03-16] MEDS: NICOTINE (*PBKC) 21 MG PATCH 1 PATCH TRANSDERM (09:23)
[2023-03-16] MEDS: ENOXAPARIN 40 MG/0.4 ML SYRINGE SUB-Q (09:23)
[2023-03-16] MEDS: ASPIRIN 81 MG ENTERIC TABLET PO (09:23)
--- NOTE | 2023-03-16 12:45 | PM.IMPN ---
Progress Note: A&P Assessment and Plan (1) Acute and chronic respiratory failure with hypercapnia: Code(s): J96.22 - Acute and chronic respiratory failure with hypercapnia Status: Acute (2) Pneumonia: Code(s): J18.9 - Pneumonia, unspecified organism Status: Acute Assessment and Plan: sputum came back with Pseudomonas he was started on oral doxycycline as well as cefepime IV (3) Malnutrition: Qualifiers: Malnutrition type: protein-calorie malnutrition Protein-calorie malnutrition severity: severe Qualified Code(s): E43 - Unspecified severe protein-calorie malnutrition Code(s): E46 - Unspecified protein-calorie malnutrition Status: Acute (4) Tobacco dependence: Code(s): F17.200 - Nicotine dependence, unspecified, uncomplicated Status: Chronic Plan A/P 1. Acute on chronic respiratory failure with hypercapnia and hypoxia- Patient remains on high-flow oxygen and is having improvement in his mentation today. Patient is PCO2 to this morning was 89.4. Put very specific parameters on titration of oxygen. Patient's FiO2 was not be taking above 30%, because when this is titrated up patient's pCO2 also goes. The L flow on high-flow oxygen can be adjusted. Also discussed in depth with staff that O2 saturations are to be kept between 88-92%. Explained that if patient saturations are in the high 90s he starts retaining CO2. have had multiple discussions with the family regarding starting to develop a plan of care for patient. There will be a family meeting today and approximately 10:00 to discussed plan with patient and family. At this point time patient is requiring high-flow oxygen and this is unavailable at home. 2. ? Pneumonia- patient's CT scan did show left upper lobe pneumonia and patient had a significant leukocytosis on admission.? Today patient's white blood cell count had decreased to 8.4 with a mild elevation in neutrophils and no bands noted as of yesterday, but today there was a mild increase in patient's white blood cells to 11.9, but a decrease in the number of neutrophils.? There was also an increase in patient's hemoglobin and hematocrit and since patient is not eating or drinking this could be secondary to dehydration, will increase IV fluids and monitor. Patient remains on doxycycline and ceftriaxone.? Patient had been on azithromycin 250 mg PO 3 times weekly at home and after discussion with Infectious Disease pharmacist it was thought the patient would have no extra benefit from azithromycin, especially since his leukocytosis has resolved.? Since patient has had improvement in his leukocytosis will continue with current regimen. Urine for Legionella and pneumococcal has been obtained and is pending at this time.? Patient has not been able to produce any sputum for a sputum culture. 3.? Malnutrition- Patient is severely cachectic and malnourished.? 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 Patient is on a regular diet and has been encouraged to eat what ever he would like. Did discuss with patient's family that they can bring in food from home or anything patient is requesting.? 4.? Tobacco abuse -Patient states he has smoked a minimum of 1 pack of cigarettes a day for the last 58 years.? Patient does have a nicotine patch in place. VTE:? Patient will be placed on subcutaneous Lovenox daily for from pharmacological VTE prophylaxis Dispo: Patient requires inpatient monitoring with expected length of stay to exceed 2 midnights for management of care. Code Status: DNR/DNI-patient is refusing BiPAP. Subjective Date/time seen: 03/16/23 12:45 Interval history: had a long conversation with patient tried occurred him to attempt the BiPAP to see home he was able to tolerate. Plain to patient that we would do the BiPAP and alternate nasal cannula and recheck his ABGs the high-flow that he is on his causes CO2 to be as high as 124. Ice plane to sara
[2023-03-16] MEDS: CEFEPIME 2 GM/NS 50 ML 2 GM/50 ML BAG IVPB ×2 (13:31→20:15)
[2023-03-16 14:06] LABS: Base Excess ABG 7.7 mmol/L (0-2); Oxygen Content ABG 15.6 %vol (16.0-22.0); Oxygen Saturation ABG 97.5 % (95-97); Oxyhemoglobin 96.1 % (94-100); PO2 ABG 108.9 mmHg (75-85); Total Hemoglobin 11.4 g/dL (12.0-18.0); pH ABG 7.15 (7.35-7.45)
[2023-03-16 14:09] LABS: Device NASAL CANNULA; Modified Allen's Test Pass; PCO2 ABG 118.6 mmHg (35-45); Site Drawn RIGHT RADIAL
--- NOTE | 2023-03-16 19:19 | PC.NURSE ---
pt placed back on bipap following neb tx by rikki ewing
[2023-03-16] MEDS: ATORVASTATIN 40 MG TABLET PO (20:16)
[2023-03-16] MEDS: DOXYCYCLINE HYCLATE 100 MG TABLET PO (20:16)
--- NOTE | 2023-03-16 20:26 | PC.NURSE ---
pt expresses that he does not want to be put on any other form of oxygen delivery besides a normal nc, he refuses bi pap or hi flow but does want his neb treatments still, pt is alert and oriented, family is in the room with him and is aware of his decision, charge nurse notified
--- NOTE | 2023-03-16 20:39 | PC.NURSE ---
Meka Moore, FRUIT AND VEGETABLE CLASSER/Hospitalist notified that patient told his nurse he doesn not want the bipap or hi flow anymore. He will only do Nasal cannula and breathing treatments.
[2023-03-17] VITALS (13 sets, daily range): BP systolic 102–118; BP diastolic 43–55; PULSE 79–84; RESP 16–20; TEMP 36.2–36.7; O2SAT 93–100
[2023-03-17] MEDS: CEFEPIME 2 GM/NS 50 ML 2 GM/50 ML BAG IVPB ×3 (04:50→20:34)
[2023-03-17] MEDS: SODIUM CHLORIDE 0.9% IV 1,000 ML 125 ML IV CONT ×2 (04:51→16:00)
[2023-03-17 05:12] LABS: Base Excess ABG 15.4 mmol/L (0-2); HCO3 ABG 47.1 mmol/L (23-29); Oxygen Content ABG 13.8 %vol (16.0-22.0); Oxygen Saturation ABG 90.3 % (95-97); Oxyhemoglobin 89.8 % (94-100); PO2 ABG 61.1 mmHg (75-85); Total Hemoglobin 10.9 g/dL (12.0-18.0); pH ABG 7.22 (7.35-7.45)
[2023-03-17 05:13] LABS: Basophils Absolute Auto 0.02 K/mm3 (0.00-0.10); Basophils Percent Auto 0.1 % (0.0-1.0); Hematocrit 32.3 % (37.0-46.0); Hemoglobin 9.9 g/dL (12.4-15.3); Immature Granulocyte Absolute 0.19 K/mm3 (0.00-0.00); Immature Granulocyte Percent A 1.3 % (0.0-0.0); Lymphocytes Absolute Auto 0.58 K/mm3 (1.10-4.50); Lymphocytes Percent Auto 3.9 % (18.0-42.0); Mean Corpuscular HGB Conc 30.7 g/dL (32.0-36.0); Mean Corpuscular Hemoglobin 36.9 pg (27.0-31.0); Mean Corpuscular Volume 120.5 fL (78.0-102.0); Mean Platelet Volume 12.3 fl (8.7-11.0); Monocytes Absolute Auto 1.33 K/mm3 (0.10-0.90); Monocytes Percent Auto 8.9 % (2.0-11.0); Neutrophils Absolute Auto 12.8 K/mm3 (1.7-7.2); Neutrophils Percent Auto 85.8 % (50.0-70.0); Nucleated Red Blood Cells Absolute Auto 0.02 K/mm3 (0.00-0.00); Nucleated Red Blood Cells Perc 0.1 % (0-0.0); Platelet Count Result 116 K/mm3 (150-420); Red Blood Count 2.68 M/mm3 (4.70-6.10); Red Cell Distribution Width 13.3 % (11.6-14.4); White Blood Count 14.9 K/mm3 (4.8-10.8)
[2023-03-17 05:15] LABS: Device NASAL CANNULA; Modified Allen's Test Pass; PCO2 ABG 117.2 mmHg (35-45); Site Drawn LEFT RADIAL
[2023-03-17 05:21] LABS: Anion Gap -3 mmol/L (8-16); Blood Urea Nitrogen 24 mg/dL (7-18); Calcium 8.5 mg/dL (8.5-10.1); Carbon Dioxide 41 mmol/L (21-32); Chloride 103 mmol/L (98-108); Estimated CRCL calculation 74 ml/min; Estimated Glomerular Filt Rate > 60; Glucose 103 mg/dL (70-99); Osmolality Calculated 296 mOsm/kg (285-295); Potassium 4.6 mmol/L (3.5-5.1); Sodium 141 mmol/L (136-145)
--- NOTE | 2023-03-17 05:25 | PC.NURSE ---
PcO2 of 117.2 reported to Akilah Moore NP. No new orders received.
[2023-03-17] MEDS: BUDESONIDE RESPULE NEB 0.5 MG/2 ML AMP INHALATION ×2 (07:20→18:35)
[2023-03-17] MEDS: IPRATROPIUM 0.5 MG/ALBUTEROL SULFATE 2.5 MG AMPUL.NEB 3 ML INHALATION ×3 (07:21→18:35)
[2023-03-17 08:07] LABS: Hematocrit 31.8 % (37.0-46.0); Hemoglobin 9.7 g/dL (12.4-15.3); Mean Corpuscular HGB Conc 30.5 g/dL (32.0-36.0); Mean Corpuscular Hemoglobin 36.6 pg (27.0-31.0); Mean Platelet Volume 12.4 fl (8.7-11.0); Platelet Count Result 122 K/mm3 (150-420); Red Blood Count 2.65 M/mm3 (4.70-6.10); Red Cell Distribution Width 13.3 % (11.6-14.4); White Blood Count 15.3 K/mm3 (4.8-10.8)
[2023-03-17 08:09] LABS: Base Excess ABG 6.7 mmol/L (0-2); HCO3 ABG 36.5 mmol/L (23-29); Oxygen Content ABG 15.2 %vol (16.0-22.0); Oxygen Saturation ABG 98.5 % (95-97); Oxyhemoglobin 95.5 % (94-100); Total Hemoglobin 11.1 g/dL (12.0-18.0); pH ABG 7.24 (7.35-7.45)
[2023-03-17 08:18] LABS: Anion Gap -3 mmol/L (8-16); Blood Urea Nitrogen 23 mg/dL (7-18); Calcium 8.4 mg/dL (8.5-10.1); Carbon Dioxide 40 mmol/L (21-32); Chloride 103 mmol/L (98-108); Estimated CRCL calculation 92 ml/min; Estimated Glomerular Filt Rate > 60; Glucose 110 mg/dL (70-99); Osmolality Calculated 294 mOsm/kg (285-295); Potassium 4.5 mmol/L (3.5-5.1); Sodium 140 mmol/L (136-145)
[2023-03-17 08:21] LABS: Device NASAL CANNULA; Modified Allen's Test Pass; PCO2 ABG 86.7 mmHg (35-45); Site Drawn RIGHT RADIAL
[2023-03-17] MEDS: ENOXAPARIN 40 MG/0.4 ML SYRINGE SUB-Q (08:49)
[2023-03-17] MEDS: NICOTINE (*PBKC) 21 MG PATCH 1 PATCH TRANSDERM (08:51)
[2023-03-17] MEDS: methylPREDNISolone SOD SUCC 40 MG VIAL IV PUSH ×2 (08:52→20:32)
[2023-03-17] MEDS: VENLAFAXINE HCL 25 MG TABLET PO (08:55)
[2023-03-17] MEDS: DOXYCYCLINE HYCLATE 100 MG TABLET PO (08:56)
[2023-03-17] MEDS: ASPIRIN 81 MG ENTERIC TABLET PO (08:56)
--- NOTE | 2023-03-17 09:27 | PC.NURSE ---
Patient noted to have slight, non pitting edema in BUE top of hands.
--- NOTE | 2023-03-17 10:50 | WPDPN ---
Progress Note: A&P Assessment and Plan (1) Acute and chronic respiratory failure with hypercapnia: Code(s): J96.22 - Acute and chronic respiratory failure with hypercapnia Status: Acute (2) Pneumonia: Code(s): J18.9 - Pneumonia, unspecified organism Status: Acute Assessment and Plan: sputum came back with Pseudomonas he was started on oral doxycycline as well as cefepime IV continue 4l PCO2 89 WBC up to 15.3 remains afebrile (3) Malnutrition: Qualifiers: Malnutrition type: protein-calorie malnutrition Protein-calorie malnutrition severity: severe Qualified Code(s): E43 - Unspecified severe protein-calorie malnutrition Code(s): E46 - Unspecified protein-calorie malnutrition Status: Acute (4) Tobacco dependence: Code(s): F17.200 - Nicotine dependence, unspecified, uncomplicated Status: Chronic Plan A/P 1. Acute on chronic respiratory failure with hypercapnia and hypoxia- Patient remains on high-flow oxygen and is having improvement in his mentation today. Patient is PCO2 to this morning was 89.4. Put very specific parameters on titration of oxygen. Patient's FiO2 was not be taking above 30%, because when this is titrated up patient's pCO2 also goes. The L flow on high-flow oxygen can be adjusted. Also discussed in depth with staff that O2 saturations are to be kept between 88-92%. Explained that if patient saturations are in the high 90s he starts retaining CO2. have had multiple discussions with the family regarding starting to develop a plan of care for patient. There will be a family meeting today and approximately 10:00 to discussed plan with patient and family. At this point time patient is requiring high-flow oxygen and this is unavailable at home. 2. ? Pneumonia- patient's CT scan did show left upper lobe pneumonia and patient had a significant leukocytosis on admission.? Today patient's white blood cell count had decreased to 8.4 with a mild elevation in neutrophils and no bands noted as of yesterday, but today there was a mild increase in patient's white blood cells to 11.9, but a decrease in the number of neutrophils.? There was also an increase in patient's hemoglobin and hematocrit and since patient is not eating or drinking this could be secondary to dehydration, will increase IV fluids and monitor. Patient remains on doxycycline and ceftriaxone.? Patient had been on azithromycin 250 mg PO 3 times weekly at home and after discussion with Infectious Disease pharmacist it was thought the patient would have no extra benefit from azithromycin, especially since his leukocytosis has resolved.? Since patient has had improvement in his leukocytosis will continue with current regimen. Urine for Legionella and pneumococcal has been obtained and is pending at this time.? Patient has not been able to produce any sputum for a sputum culture. 3.? Malnutrition- Patient is severely cachectic and malnourished.? 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 Patient is on a regular diet and has been encouraged to eat what ever he would like. Did discuss with patient's family that they can bring in food from home or anything patient is requesting.? 4.? Tobacco abuse -Patient states he has smoked a minimum of 1 pack of cigarettes a day for the last 58 years.? Patient does have a nicotine patch in place. VTE:? Patient will be placed on subcutaneous Lovenox daily for from pharmacological VTE prophylaxis Dispo: Patient requires inpatient monitoring with expected length of stay to exceed 2 midnights for management of care. Code Status: DNR/DNI-patient is refusing BiPAP. Subjective Date/time seen: 03/17/23 10:50 Interval history: Year old male who is currently on 4 L nasal cannula the patient's sputum culture came back with Pseudomonas currently on doxycycline and cefepime. Patient tolerated BiPAP for some time yesterday although last night he decided that he
[2023-03-17] MEDS: ONDANSETRON INJ 4 MG/2 ML VIAL IV PUSH ×2 (12:19→18:12)
[2023-03-17 17:44] LABS: Pneumococcal Antigen Urine Not Detected (Not Detected)
--- NOTE | 2023-03-17 17:49 | PC.NURSE ---
family here keeps questioning staff. wants to know what we are giving him that makes him knocked out . claims this morning he was talking and eyes open. this rojas after prn nausea med given he is knocked. son at nurse station c/o [facility] tx is now knocking patient. wanting to talk with gas dispatcher. gas dispatcher aware of findings. yoly feet cold L foot toes look purple. yoly legs up into knees are mottled. refuses to eat. gas dispatcher is talking with family per phone at this time. son and brother here and talk.
--- NOTE | 2023-03-17 17:57 | PC.NURSE ---
Technical Sourcing Recruiter and charge nurse changed patient's bed, due to it being wet, either due to a bladder spasm, or leaking catheter. No apparent leaks at this time. Will continue to monitor. Technical Sourcing Recruiter and charge nurse noted that Patient's L toes were dusky/ bluish. Right toes showed less, but some discoloration. Patient has non pitting edema in bilateral hands. Patient is lethargic and sleepy, but arousable by voice and able to follow simple commands. Patient's family at bedside and questioning patient's condition in relation to medications, stating that when patient gets a breathing treatment, he gets sleepy. Family also questioned leader writer about what medications patient received at am med pass. Technical Sourcing Recruiter listed medications from the [facility], and explained what each were for. Technical Sourcing Recruiter told charge nurse that patient's family had questions and charge nurse called PROJECTION PRINTER and had PROJECTION PRINTER speak to the family.
--- NOTE | 2023-03-17 18:29 | PC.NURSE ---
This nurse had discussion at the desk with patient's brother and POA about change in patient's skin color and that the change looked like mottling and explained what mottling is. This nurse discussed patient's decline in ability to stay awake as patient becomes tired simply from breathing. Patient's brother voiced understanding that patient's condition is very serious and stated that in Patient's brother's opinion, the oxygen should be removed and patient should be allowed to . POAleta stated that there is conflict within the family and that is why patient's brother was named POA.
[2023-03-17] MEDS: ATORVASTATIN 40 MG TABLET PO (20:35)
[2023-03-17] MEDS: MORPHINE SULFATE (*CRX) 2 MG/ML INJ 1 MG IV PUSH (21:06)
[2023-03-18] VITALS (15 sets, daily range): BP systolic 106–111; BP diastolic 51–74; PULSE 0–91; RESP 16–22; TEMP 36.1–36.4; O2SAT 90–94
[2023-03-18] MEDS: IPRATROPIUM 0.5 MG/ALBUTEROL SULFATE 2.5 MG AMPUL.NEB 3 ML INHALATION ×4 (00:04→18:30)
[2023-03-18] MEDS: SODIUM CHLORIDE 0.9% IV 1,000 ML 125 ML IV CONT ×2 (00:52→09:37)
[2023-03-18] MEDS: CEFEPIME 2 GM/NS 50 ML 2 GM/50 ML BAG IVPB (04:58)
[2023-03-18 05:55] LABS: Basophils Absolute Auto 0.02 K/mm3 (0.00-0.10); Basophils Percent Auto 0.2 % (0.0-1.0); Hematocrit 32.9 % (37.0-46.0); Immature Granulocyte Absolute 0.31 K/mm3 (0.00-0.00); Immature Granulocyte Percent A 2.8 % (0.0-0.0); Lymphocytes Absolute Auto 0.54 K/mm3 (1.10-4.50); Lymphocytes Percent Auto 4.9 % (18.0-42.0); Mean Corpuscular HGB Conc 30.4 g/dL (32.0-36.0); Mean Corpuscular Hemoglobin 37.2 pg (27.0-31.0); Mean Corpuscular Volume 122.3 fL (78.0-102.0); Monocytes Absolute Auto 0.84 K/mm3 (0.10-0.90); Monocytes Percent Auto 7.7 % (2.0-11.0); Neutrophils Absolute Auto 9.2 K/mm3 (1.7-7.2); Neutrophils Percent Auto 84.4 % (50.0-70.0); Nucleated Red Blood Cells Absolute Auto 0.05 K/mm3 (0.00-0.00); Nucleated Red Blood Cells Perc 0.5 % (0-0.0); Platelet Count Result 121 K/mm3 (150-420); Red Blood Count 2.69 M/mm3 (4.70-6.10); Red Cell Distribution Width 13.2 % (11.6-14.4); White Blood Count 10.9 K/mm3 (4.8-10.8)
[2023-03-18 06:08] LABS: Legionella pneumophila Ag Ur Not Detected (Not Detected)
[2023-03-18 06:09] LABS: Anion Gap -5 mmol/L (8-16); Blood Urea Nitrogen 29 mg/dL (7-18); Calcium 8.4 mg/dL (8.5-10.1); Carbon Dioxide 43 mmol/L (21-32); Chloride 106 mmol/L (98-108); Estimated CRCL calculation 64 ml/min; Estimated Glomerular Filt Rate > 60; Glucose 102 mg/dL (70-99); Osmolality Calculated 303 mOsm/kg (285-295); Potassium 4.6 mmol/L (3.5-5.1); Sodium 144 mmol/L (136-145)
[2023-03-18] MEDS: MORPHINE SULFATE (*CRX) 2 MG/ML INJ 1 MG IV PUSH ×2 (06:46→19:32)
[2023-03-18] MEDS: BUDESONIDE RESPULE NEB 0.5 MG/2 ML AMP INHALATION ×2 (06:55→18:30)
--- NOTE | 2023-03-18 07:07 | PC.NURSE ---
Discussed BLE mottling with friend at bedside, friend placed call to Purnima, daughter in law and Al brother, educated family on mottling. Purnima states no one had informed them of this information prior to now, Purnima agitated, and concerned about pt care, reassured family pt was in good hands and is receiving best care possible.
[2023-03-18] MEDS: ENOXAPARIN 40 MG/0.4 ML SYRINGE SUB-Q (08:56)
[2023-03-18] MEDS: methylPREDNISolone SOD SUCC 40 MG VIAL IV PUSH (08:57)
[2023-03-18] MEDS: VENLAFAXINE HCL 25 MG TABLET PO (08:59)
[2023-03-18] MEDS: ASPIRIN 81 MG ENTERIC TABLET PO (08:59)
[2023-03-18] MEDS: NICOTINE (*PBKC) 21 MG PATCH 1 PATCH TRANSDERM (09:01)
--- NOTE | 2023-03-18 10:02 | PM.IMPN ---
Progress Note: A&P Assessment and Plan (1) Acute and chronic respiratory failure with hypercapnia: Code(s): J96.22 - Acute and chronic respiratory failure with hypercapnia Status: Acute Assessment and Plan: Pt lethargic and not wanting any more ABG completed Pt declines wanting BIPAP (2) Pneumonia: Code(s): J18.9 - Pneumonia, unspecified organism Status: Acute Assessment and Plan: sputum came back with Pseudomonas he was started on oral doxycycline as well as cefepime IV continue 4l PCO2 89 WBC up to 15.3 remains afebrile Pt lethargic (3) Malnutrition: Qualifiers: Malnutrition type: protein-calorie malnutrition Protein-calorie malnutrition severity: severe Qualified Code(s): E43 - Unspecified severe protein-calorie malnutrition Code(s): E46 - Unspecified protein-calorie malnutrition Status: Acute (4) Tobacco dependence: Code(s): F17.200 - Nicotine dependence, unspecified, uncomplicated Status: Chronic Plan A/P 1. Acute on chronic respiratory failure with hypercapnia and hypoxia- Patient remains on high-flow oxygen and is having improvement in his mentation today. Patient is PCO2 to this morning was 89.4. Put very specific parameters on titration of oxygen. Patient's FiO2 was not be taking above 30%, because when this is titrated up patient's pCO2 also goes. The L flow on high-flow oxygen can be adjusted. Also discussed in depth with staff that O2 saturations are to be kept between 88-92%. Explained that if patient saturations are in the high 90s he starts retaining CO2. have had multiple discussions with the family regarding starting to develop a plan of care for patient. There will be a family meeting today and approximately 10:00 to discussed plan with patient and family. At this point time patient is requiring high-flow oxygen and this is unavailable at home. 2. ? Pneumonia- patient's CT scan did show left upper lobe pneumonia and patient had a significant leukocytosis on admission.? Today patient's white blood cell count had decreased to 8.4 with a mild elevation in neutrophils and no bands noted as of yesterday, but today there was a mild increase in patient's white blood cells to 11.9, but a decrease in the number of neutrophils.? There was also an increase in patient's hemoglobin and hematocrit and since patient is not eating or drinking this could be secondary to dehydration, will increase IV fluids and monitor. Patient remains on doxycycline and ceftriaxone.? Patient had been on azithromycin 250 mg PO 3 times weekly at home and after discussion with Infectious Disease pharmacist it was thought the patient would have no extra benefit from azithromycin, especially since his leukocytosis has resolved.? Since patient has had improvement in his leukocytosis will continue with current regimen. Urine for Legionella and pneumococcal has been obtained and is pending at this time.? Patient has not been able to produce any sputum for a sputum culture. 3.? Malnutrition- Patient is severely cachectic and malnourished.? 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 Patient is on a regular diet and has been encouraged to eat what ever he would like. Did discuss with patient's family that they can bring in food from home or anything patient is requesting.? 4.? Tobacco abuse -Patient states he has smoked a minimum of 1 pack of cigarettes a day for the last 58 years.? Patient does have a nicotine patch in place. VTE:? Patient will be placed on subcutaneous Lovenox daily for from pharmacological VTE prophylaxis Dispo: Patient requires inpatient monitoring with expected length of stay to exceed 2 midnights for management of care. Code Status: DNR/DNI-patient is refusing BiPAP. Subjective Date/time seen: 03/18/23 10:02 Interval history: Patient is gravely ill and is very lethargic and not well. I did wake him enough to have a conversation wit
--- NOTE | 2023-03-18 13:06 | PC.NURSE ---
Patient and family decided that patient should be made comfortable preparing for end of life. Telemetry and IV fluids discontinued to give patient more freedom to move around in bed. Patient denies pain at this time. Family at bedside.
[2023-03-19] VITALS: BP 111/46; PULSE 90; RESP 20; TEMP 36.5
[2023-03-19 00:21] VITALS: PULSE 85; RESP 17; O2SAT 90
[2023-03-19] MEDS: IPRATROPIUM 0.5 MG/ALBUTEROL SULFATE 2.5 MG AMPUL.NEB 3 ML INHALATION ×2 (00:21→05:07)
[2023-03-19 00:27] VITALS: PULSE 84; RESP 17; O2SAT 90
[2023-03-19] MEDS: BUDESONIDE RESPULE NEB 0.5 MG/2 ML AMP INHALATION (05:07)
[2023-03-19 05:08] VITALS: PULSE 80; RESP 17; O2SAT 90
[2023-03-19 05:19] VITALS: PULSE 80; RESP 17; O2SAT 90
[2023-03-19] MEDS: MORPHINE SULFATE (*CRX) 2 MG/ML INJ 1 MG IV PUSH (06:36)
[2023-03-19 08:00] VITALS: BP 116/58; PULSE 86; PULSE 90; RESP 14; RESP 16; TEMP 36.4; O2SAT 80; O2SAT 85
--- NOTE | 2023-03-19 10:48 | PM.IMPN ---
Progress Note: A&P Assessment and Plan (1) End of life care: Code(s): Z51.5 - Encounter for palliative care Status: Acute Assessment and Plan: Roxanol 5 mg SL Q2 hrs Intensol 1 mg SL Q2 hrs Scopolomine patch Q72 hrs Atropine Opthalmologic solution 1 gtt ORAL Q4 hrs. All unnecessary orders are discontinued. Family in agreement that this is the course of treatment that the patient wanted. Vital signs once/shift and prn. Comfort is the focus of care for this patient and family. They do not wish to have any further life prolonging measures at this time. With a reasonable degree of medical certainty, I can say that pt's is most likely imminent and transfer at this time would be too taxing and stressful on his body. (2) Acute and chronic respiratory failure with hypercapnia: Code(s): J96.22 - Acute and chronic respiratory failure with hypercapnia Status: Acute Assessment and Plan: Secondary to Pneumonia and COPD. Pt. has refused any further respiratory treatment and has chosen end of life care that the family wants to uphold at this time. (3) Pneumonia: Code(s): J18.9 - Pneumonia, unspecified organism Status: Acute Assessment and Plan: Pseudomonas per cultures Pt. has refused any further respiratory treatment or workup with imaging and labs and has chosen end of life care that the family wants to uphold at this time. (4) Tobacco dependence: Code(s): F17.200 - Nicotine dependence, unspecified, uncomplicated Status: Chronic Time Spent With Patient Time with patient: Greater than 35 minutes Subjective Date/time seen: 03/19/23 10:48 Interval history: This pt was examined at the bedside in interval assessment with family at the bedside. Pt. is not arousable for this provider and appears deathly ill. He was admitted with a PNA and COPD exacerbation and developed an Acute Hypercapneic respiratory failure and refused further treatments with BiPap, CPAP, High Flow oxygen, and further lab testing. He made it clear to the family and staff that he wanted to be let go. The family has chosen for him to just be made to be comfortable and to not suffer. His oxygen saturations are fluctuating with the highest we have been able to get is 85% on 4L NC as he has already started to have episodes of gasping and Inderjit Bae pattern, as well as mottling of the BLE. is imminent and will be soon. Any transfer of patient at this time would be a great stress on the body and risks of movement and transfer outweigh benefit. Review of Systems Review of Systems: ROS unobtainable: Yes unobtainable due to medical condition Exam Const: General: uncomfortable (Pt. with intermittent moans an movements that appear uncomfortable.) Other: Lying supine in bed at this time. HENMT: Face/Nose/Sinus: Normal nares present Mouth: Yes dry mucous membranes Eyes: Sclera: sclerae normal Pupils: Equal, round and reactive pupils present (sluggish) Neck: Neck: no JVD Resp: Effort & Inspection: abnormal respiratory effort (Shallow, fast, appearing to use accessory muscles) Auscultation: rales diffuse, rhonchi throughout and diminished lung sounds bilateral (bases) Cardio: Rate: regular rate Rhythm: regular rhythm Heart sounds: no gallops, no murmurs and no rubs GI: Inspection: non-distended GI Palp: Yes Soft to palpation, No Tenderness to palpation present (GI) and No Guarding due to palpation present (GI) Auscultation: abnormal bowel sounds (Hypoactive) Urinary Catheter: Urinary Catheter: patent and draining and urine clear Skin: General skin exam: No normal color (Pallor with mottling of the BLE. Cap. refill is >3 sec in toes.) Neuro: Speech: No normal speech (not arousable to speak) Other: Pt. not responding to examine. Extrem: General: edema (1+ Pitting edema to the BLE.) bilateral Psych: Other: Not able to assess. Objective Data Vital Signs Vital S
[2023-03-19] MEDS: SCOPOLAMINE 1.5 MG PATCH (11:51)
[2023-03-19] MEDS: MORPHINE SULFATE ORAL CONC SOL (*CRX) 10 MG/0.5 ML SYRINGE 5 MG PO ×3 (11:55→17:09)
[2023-03-19] MEDS: LORazepam (*CRX) 2 MG/ML 30 ML ORAL CONCENTRATE 1 MG SUBLINGUAL ×2 (12:20→12:58)
--- NOTE | 2023-03-19 17:15 | PC.NURSE ---
Family called this nurse into room. States they think he is gone. This nurse and nurse Mary RN confirmed patients . time of 171.
--- NOTE | 2023-03-19 17:50 | PC.NURSE ---
Patients family stepped out of room. This nurse removed salter catheter, scopalamine patch and mepilex to coccyx. Patient given sponge bath and placed in clean gown.
--- NOTE | 2023-03-19 17:57 | PM.DDS ---
Discharge Summary Date and Time Date of : 03/19/23 Time of : 17:15 Provider Pronounced By: Dolores Chacon RN, Timo Granados RN Probable Cause of Probable Cause of : Acute Hypercapneic Respiratory Failure secondary to Acute Pneumonia Summary Hospital Course: Mr. Robledowas a pleasant 59-year-old gentleman who presented emergency room with complaints of increasing shortness of breath on 03/13/2023.? Patient had a very well known history of severe end-stage COPD with supplemental oxygen of 2-3L, chronic hypoxic and hypercapneic respiratory failure, PVD with BLE stent placements, and chronic tobacco abuse. At baseline, the pt. has an intermittent dry cough and dyspnea, but endorsed that the dyspnea had worsened over the previous three days prior to presentation to the hospital. There he endorsed that his cough that is chronic in nature persisted and changed from dry to scantly productive of white, foamy sputum. He endorsed that as his breathing changed he attempted to use his inhalers without any relief of his symptoms. In the ER and after being admitted the patient refused BiPap due to not being able to tolerate the mask on his face.? Patient independently chose to be a DNR, and does not want to have CPR or intubation.? Upon evaluation emergency room patient was noted to have an oxygen saturation of 88% on? 2 L of oxygen per nasal cannula and a respiratory rate of 30 respirations per minute.? Patient was given a DuoNeb treatment, IV Solu-Medrol, and magnesium for COPD exacerbation.? Patient was started on IV doxycycline and Rocephin.? Previously patient had been on azithromycin orally 3 times weekly at home. Patient was noted to have a significant leukocytosis with neutrophilia and no bandemia.? Patient's ABGs also showed a respiratory acidosis,? with a pH of 7.27, a pCO2 of 105.6, AP a O2 at 94.2, and a bicarbonate level of 47, and was admitted to the hospital for further evaluation and treatment. His hospital course was not favorable and he continued to have respiratory decline, developed severe hypercapnia, mottling of the BLE and began refusing any further lab draws, imaging or any checking of vital signs. High flow NC was attempted, but he did not tolerate that either. He independently asked to be let go. After much discussion with patient and family today it was obvious was imminent and he chose to merely be made comfortable. Pt. was started on prn Morphine and Ativan and allowed to pass naturally surrounded by his family. Additional Data Confirmation of as documented by pronouncing clinician: Pupillary Reflex, Palpable Pulses, Response to Stimuli, Heart Tones and Breath Sounds Name of Provider Notified: Wilfredo Silva BIOLOGICAL SCIENCES INSTRUCTOR/Hospitalist Time Provider Notified: 17:20 Provider Requests Autopsy: No Family Requests Autopsy: No Date [facility] Notified of : 03/19/23 Time [facility] Notified of : 17:30
--- NOTE | 2023-03-19 17:59 | PC.NURSE ---
1710 Patient's family called nurse to room. 1715 No pupil reaction, no resp, no heart tones observed. Family at bedside. Patient assessed by Dolores Chacon RN and Timo Granados RN. 1720 Wilfredo Silva, FUEL BUYER/Hospitalist notified of . 1730 Kaila Leal [facility] Coroner, notified of . Staff may remove lines and release the body. 1730 Jacek at [facility] notified of . Per Jacek patient does not qualify for donation. Ref # [id number].
--- NOTE | 2023-03-19 18:43 | PC.NURSE ---
1830 Baldomero from the eye donation facility called and stated patient does not qualify for donation. May release the body to home.
--- NOTE | 2023-03-19 18:46 | PC.NURSE ---
183 Soco at [facility] answering service notified that family has chosen the [place] branch. 1839 Dara from [facility] to verify hospital and where patient is located in the hospital.
--- NOTE | 2023-03-19 20:11 | PC.NURSE ---
[facility] staff here to excelsior picker remains and speak with family.
[2023-03-21 22:31] LABS: Reference Lab Test Name PROCALCITONIN
== END 2023-03-19 17:15 | disposition expired | DRG 177 ==
LOC: CHSED 03-13 00:07 → CHS2ND 03-13 00:25
PROVIDERS: Nurse Practitioner Adult Health; Nurse Practitioner Family; Admitting Provider Internal Medicine; Emergency Provider Emergency Medicine; Visit Provider Internal Medicine
DX: J44.0 Chronic obstructive pulmonary disease with (acute) lower respiratory infection (principal); J20.9 Acute bronchitis, unspecified; J44.1 Chronic obstructive pulmonary disease with (acute) exacerbation; J96.22 Acute and chronic respiratory failure with hypercapnia; E78.5 Hyperlipidemia, unspecified; I73.9 Peripheral vascular disease, unspecified; Z20.822 Contact with and (suspected) exposure to COVID-19; F17.210 Nicotine dependence, cigarettes, uncomplicated; Z99.81 Dependence on supplemental oxygen; Z66 Do not resuscitate; J15.1 Pneumonia due to Pseudomonas; E43 Unspecified severe protein-calorie malnutrition; J96.21 Acute and chronic respiratory failure with hypoxia; Z68.1 Body mass index [BMI] 19.9 or less, adult; Z95.820 Peripheral vascular angioplasty status with implants and grafts; Z79.82 Long term (current) use of aspirin; Z51.5 Encounter for palliative care
CPT/HCPCS: 36415; 36600; 71045; 71275; 80048; 80053; 82375; 82803; 82805; 83050; 83605; 83735; 83880; 84145; 84484; 85025; 85027; 85055; 85380; 85652; 86140; 87040; 87070; 87147; 87186; 87205; 87449; 87637; 87899; 93005; 94640; 94660; 96365; 96367; 96375; 99285; A9270; J0692; J0696; J1650; J1940; J2060; J2270; J2405; J2920; J2930; J3475; J7030; J7040; Q9967